=== PATIENT | male | born 1940 | race American Indian/Alaskan Native ===

== ENCOUNTER → 2016-12-30 | Outpatient (CLI) | payer MEDICARE, OTHER ==
[~2016-12-30] MED LIST: ARICEPT 5MG PO; ARICEPT10 MG PO; ATIVAN 0.50.5 MG/TAB PO; CALCIUM 600MG+D1 TAB PO; CARDIZEM 30MG T30 MG PO; CARDIZEM 60MG T60 MG PO; CEPHALEXIN500 M1 PO; CHANTIX 1MG1 MG PO; CLEOCIN HC150 MG/CAP PO; DOXYCYCLINE 10100 MG PO; EC-NAPROSYN500 MG PO; FLEXERIL 1010 MG/TAB PO; FLOMAX 0.40.4 MG/CAP PO; IPRATROPIUM BROM3 M1 IH; LEVAQUIN 5500 MG/TA1 PO; MUCINEX 60600 MG/TA1 PO; MUCINEX DM 30 M1 TE1 PO; MYSOLINE 5050 MG/TAB PO; NAMENDA 10MG TA10 MG PO; NORCO 325 MG-51 TAB PO; PERFOROMIS20 MCG/2 M IH; PREDNISONE 5MG5 MG PO; PREDNISONE10 MG PO; PREDNISONE20 MG PO; PROAIR HFA0.09 MG/AC IH; PULMICORT R1 MG/2 ML IH; PULMICORT0.5 MG/2 M IH; RT ADVAIR 228 DISKUS IH; TOBRADEX EYE DRO5 ML OD; ULTRAM 50MG TAB50 MG PO; VANCOCIN HCL1 GM IV; VENTOLIN0.09 MG IH; WELLBUTRIN 75MG75 MG PO; WELLBUTRIN SR150 M1 PO; ZITHROMAX 250M250 MG PO
== END ==
LOC: COL.RAD 13:15
DX: R20.1 Hypoesthesia of skin (principal)
CPT/HCPCS: A9585

== ENCOUNTER 2017-06-26 09:17 | Emergency (ER) | payer MEDICARE, OTHER ==
[~2017-06-26] VITALS: Ht 160 cm; Wt 67.2 kg
[~2017-06-26 09:17] MED LIST changes: -CALCIUM 600MG+D1 TAB PO; -EC-NAPROSYN500 MG PO; -MUCINEX 60600 MG/TA1 PO; -MUCINEX DM 30 M1 TE1 PO; -PREDNISONE10 MG PO; -PULMICORT R1 MG/2 ML IH; -ULTRAM 50MG TAB50 MG PO; -VENTOLIN0.09 MG IH; -ZITHROMAX 250M250 MG PO
[2017-06-26 09:25] VITALS: BP 122/61; TEMP 97.4
[2017-06-26] MEDS ORDERED: MUCINEX 60600 MG/TA1 PO (09:45)
[2017-06-26 10:21] LABS: ARTERIAL BLD GAS O2 SATURATION 95.7 % (92-100); ARTERIAL BLD GAS TCO2 CT 28.1; ARTERIAL BLOOD GAS BASE EXCESS 0.5 (-2-2); ARTERIAL BLOOD GAS HCO3 26.6 meq/L (22-26); ARTERIAL BLOOD GAS PHT 7.36 C (7.35-7.45); ARTERIAL BLOOD GAS PO2 89.4 mmHg (80-100); ARTERIAL BLOOD GAS PO2T 89.4 (80-100); ARTERIAL BLOOD GAS pH 7.36 (7.35-7.45); OXYHEMOGLOBIN 94.8 %
[2017-06-26 10:23] LABS: ATS? YES
[2017-06-26 10:27] LABS: ALANINE AMINOTRANSFERASE 23 U/L (21-72); ALBUMIN 4.3 gm/dL (3.5-5.0); ALKALINE PHOSPHATASE 71 U/L (50-136); ANION GAP 11 mmol/L (7-16); BILIRUBIN,TOTAL 0.4 mg/dL (0.0-1.0); BLOOD UREA NITROGEN 20 mg/dL (9-20); CALCIUM 9.2 mg/dL (8.4-10.2); CARBON DIOXIDE 28 mmol/L (22-30); CHLORIDE 104 mmol/L (98-107); CREATININE, serum 1.07 mg/dL (0.66-1.25); GLUCOSE 113 mg/dL (74-106); POTASSIUM 3.5 mmol/L (3.4-5.0); SODIUM 143 mmol/L (137-145); TOTAL PROTEIN 6.5 gm/dL (6.4-8.2)
[2017-06-26 10:28] LABS: BASO # 0.1 (0.0-0.2); BASO % 0.8 % (0.0-2.0); EOS # 0.7 (0.0-0.7); EOS % 8.5 % (0-4.0); GRAN # 4.8 (1.4-6.5); GRAN % 61.9 % (42.2-75.2); HEMATOCRIT 39.3 % (42.0-52.0); HEMOGLOBIN 12.8 g/dl (13.5-18.0); LYMPH # 1.7 (1.2-3.4); LYMPH % 21.6 % (20.0-51.0); MEAN CELL VOLUME 94 fl (80.0-100.0); MEAN CORPUSCULAR HEMOGLOBIN 31 pg (27.0-31.0); MEAN CORPUSCULAR HGB CONC 33 g/dl (33.0-37.0); MEAN PLATELET VOLUME 11.7 fl (7.4-10.4); MONO # 0.5 (0.1-0.6); MONO % 6.7 % (1.7-9.3); PLATELET COUNT 199 K/mm3 (130-400); RED BLOOD COUNT 4.18 M/mm3 (4.20-5.60); WHITE BLOOD COUNT 7.7 K/mm3 (4.8-10.8)
[2017-06-26 10:37] LABS: INR 0.9 (0.8-3.0); PROTHROMBIN TIME 9.8 SECONDS (9.7-12.8)
[2017-06-26 10:39] LABS: B-TYPE NATRIURETIC PEPTIDE 304 pg/mL (0-450)
[2017-06-26 10:44] LABS: TROPONIN-I < 0.012 ng/mL (0.000-0.034)
[2017-06-26] MEDS ORDERED: PREDNISONE20 MG PO (11:01)
[2017-06-26] MEDS ORDERED: LEVAQUIN 5500 MG/TA1 PO (11:01)
[2017-06-26 11:18] VITALS: PULSE 86
== END 2017-06-26 11:19 | disposition home or self-care (01) ==
LOC: COL.ER 09:17
PROVIDERS: Emergency Medicine
DX: J44.1 Chronic obstructive pulmonary disease with (acute) exacerbation (principal); F03.90 Unspecified dementia, unspecified severity, without behavioral disturbance, psychotic disturbance, mood disturbance, and anxiety; F41.9 Anxiety disorder, unspecified; N40.0 Benign prostatic hyperplasia without lower urinary tract symptoms; Z85.118 Personal history of other malignant neoplasm of bronchus and lung; Z87.891 Personal history of nicotine dependence
CPT/HCPCS: J7512

== ENCOUNTER → 2017-07-07 | Outpatient (REF) ==
[~2017-07-07] MED LIST changes: +CALCIUM 600MG+D1 TAB PO; +EC-NAPROSYN500 MG PO; +MUCINEX 60600 MG/TA1 PO; +MUCINEX DM 30 M1 TE1 PO; +PREDNISONE10 MG PO; +PULMICORT R1 MG/2 ML IH; +ULTRAM 50MG TAB50 MG PO; +VENTOLIN0.09 MG IH; +ZITHROMAX 250M250 MG PO
[2017-07-07 19:37] LABS: PSA-TOTAL 0.27 ng/mL (0-4); THYROID STIMULATING HORMONE 0.645 uIU/mL (0.465-4.680)
== END ==
LOC: ZLAB.WCH 17:59
PROVIDERS: Internal Medicine
DX: Z01.89 Encounter for other specified special examinations (principal)
CPT/HCPCS: G0103

== ENCOUNTER 2017-07-09 14:15 | Outpatient (RCR) | payer MEDICARE, OTHER ==
[~2017-07-09 14:15] MED LIST changes: -CALCIUM 600MG+D1 TAB PO; -EC-NAPROSYN500 MG PO; -MUCINEX DM 30 M1 TE1 PO; -PREDNISONE10 MG PO; -PULMICORT R1 MG/2 ML IH; -ULTRAM 50MG TAB50 MG PO; -VENTOLIN0.09 MG IH; -ZITHROMAX 250M250 MG PO
[2017-07-18] MEDS ORDERED: VENTOLIN0.09 MG IH (01:44)
[2017-07-18] MEDS ORDERED: CALCIUM 600MG+D1 TAB PO (01:44)
[2017-07-18] MEDS ORDERED: ULTRAM 50MG TAB50 MG PO (01:45)
[2017-07-18] MEDS ORDERED: WELLBUTRIN SR150 M1 PO (02:21)
[2017-07-21] MEDS ORDERED: ZITHROMAX 250M250 MG PO (09:43)
[2017-07-21] MEDS ORDERED: EC-NAPROSYN500 MG PO (09:44)
[2017-07-21] MEDS ORDERED: MUCINEX DM 30 M1 TE1 PO (09:45)
[2017-07-21] MEDS ORDERED: MYSOLINE 5050 MG/TAB PO (09:45)
[2017-07-21] MEDS ORDERED: PULMICORT R1 MG/2 ML IH (09:47)
[2017-07-21] MEDS ORDERED: PREDNISONE10 MG PO (09:47)
== END 2017-07-23 13:48 | disposition home or self-care (01) ==
LOC: MKS.ESL.PT 14:15
DX: S22.050D Wedge compression fracture of T5-T6 vertebra, subsequent encounter for fracture with routine healing (principal); S22.060D Wedge compression fracture of T7-T8 vertebra, subsequent encounter for fracture with routine healing; S32.010D Wedge compression fracture of first lumbar vertebra, subsequent encounter for fracture with routine healing
CPT/HCPCS: G8978-GP; G8979-GP

== ENCOUNTER 2017-07-18 00:50 | Inpatient (IN) | payer MEDICARE, OTHER ==
[~2017-07-18] VITALS: Ht 162.6 cm; Wt 69.6 kg
[2017-07-18 01:14] LABS: ARTERIAL BLD GAS O2 SATURATION 97.3 % (92-100); ARTERIAL BLD GAS TCO2 CT 26.5; ARTERIAL BLOOD GAS BASE EXCESS 0.6 (-2-2); ARTERIAL BLOOD GAS HCO3 25.3 meq/L (22-26); ARTERIAL BLOOD GAS PHT 7.42 C (7.35-7.45); ARTERIAL BLOOD GAS PO2 105.8 mmHg (80-100); ARTERIAL BLOOD GAS PO2T 99.9 (80-100); ARTERIAL BLOOD GAS pH 7.41 (7.35-7.45); OXYHEMOGLOBIN 96.4 %
[2017-07-18 01:15] LABS: ALLEN TEST YES; ALLENS TEST RESULT PASS; ATS? YES
[2017-07-18 01:21] LABS: BASO # 0.1 (0.0-0.2); BASO % 0.6 % (0.0-2.0); EOS # 0.8 (0.0-0.7); EOS % 9.4 % (0-4.0); GRAN # 5.1 (1.4-6.5); GRAN % 61.3 % (42.2-75.2); HEMATOCRIT 39.6 % (42.0-52.0); HEMOGLOBIN 13.1 g/dl (13.5-18.0); LYMPH # 1.5 (1.2-3.4); LYMPH % 18.1 % (20.0-51.0); MEAN CELL VOLUME 93 fl (80.0-100.0); MEAN CORPUSCULAR HEMOGLOBIN 31 pg (27.0-31.0); MEAN CORPUSCULAR HGB CONC 33 g/dl (33.0-37.0); MEAN PLATELET VOLUME 11.3 fl (7.4-10.4); MONO # 0.9 (0.1-0.6); MONO % 10.2 % (1.7-9.3); PLATELET COUNT 258 K/mm3 (130-400); RED BLOOD COUNT 4.25 M/mm3 (4.20-5.60); REDCELL DISTRIBUTION WIDTH-CV 13.1 % (11.5-14.5); WHITE BLOOD COUNT 8.3 K/mm3 (4.8-10.8)
[2017-07-18 01:26] LABS: INR 0.9 (0.8-3.0); PROTHROMBIN TIME 9.6 SECONDS (9.7-12.8)
[2017-07-18 01:30] LABS: ADJUSTED CALCIUM 8.5 mg/dL (8.4-10.2); ALANINE AMINOTRANSFERASE 19 U/L (21-72); ALBUMIN 4.4 gm/dL (3.5-5.0); ALKALINE PHOSPHATASE 94 U/L (50-136); ANION GAP 11 mmol/L (7-16); BILIRUBIN,TOTAL 0.4 mg/dL (0.0-1.0); BLOOD UREA NITROGEN 22 mg/dL (9-20); CALCIUM 8.8 mg/dL (8.4-10.2); CARBON DIOXIDE 27 mmol/L (22-30); CHLORIDE 104 mmol/L (98-107); CREATINE KINASE 37 U/L (55-170); CREATININE, serum 1.16 mg/dL (0.66-1.25); GLUCOSE 118 mg/dL (74-106); POTASSIUM 4.1 mmol/L (3.4-5.0); SODIUM 142 mmol/L (137-145); TOTAL PROTEIN 6.9 gm/dL (6.4-8.2)
[2017-07-18 01:42] LABS: B-TYPE NATRIURETIC PEPTIDE 69 pg/mL (0-450)
[2017-07-18] MEDS ORDERED: VENTOLIN0.09 MG IH (01:44)
[2017-07-18] MEDS ORDERED: CALCIUM 600MG+D1 TAB PO (01:44)
[2017-07-18] MEDS ORDERED: ULTRAM 50MG TAB50 MG PO (01:45)
[2017-07-18 01:51] LABS: TROPONIN-I < 0.012 ng/mL (0.000-0.034)
[2017-07-18] MEDS ORDERED: WELLBUTRIN SR150 M1 PO (02:21)
[2017-07-18 04:06] VITALS: BP 102/68; PULSE 92; TEMP 98
[2017-07-18 07:40] VITALS: BP 101/63; PULSE 95; TEMP 98.3
[2017-07-18 12:59] VITALS: BP 128/67; PULSE 104; TEMP 97.7
[2017-07-18 13:11] VITALS: BP 117/64; PULSE 76; TEMP 97.4
[2017-07-18 16:30] VITALS: BP 101/86; PULSE 90; TEMP 98.5
[2017-07-18 20:58] VITALS: BP 108/55; BP 119/57; PULSE 88; PULSE 99; TEMP 97.9
[2017-07-19 00:50] VITALS: BP 95/52; PULSE 64; TEMP 98
[2017-07-19 05:16] VITALS: BP 127/98; PULSE 84; TEMP 97.7
[2017-07-19 09:53] VITALS: BP 115/50; PULSE 87; TEMP 98.2
[2017-07-19 12:42] VITALS: BP 112/72; PULSE 85; TEMP 98.7
[2017-07-19 15:49] VITALS: BP 114/55; PULSE 89; TEMP 98.5
[2017-07-19 20:52] VITALS: BP 111/51; PULSE 88; TEMP 98.3
[2017-07-19 22:52] LABS: PROCALCITONIN <0.05 ng/mL (0.00-0.09)
[2017-07-20] VITALS (7 sets, daily range): BP systolic 107–127; BP diastolic 49–89; PULSE 65–99; TEMP 97.1–98.5
[2017-07-21 04:07] VITALS: BP 125/68; PULSE 75; TEMP 97.9
[2017-07-21 09:13] VITALS: BP 113/51; PULSE 72; TEMP 97.6
[2017-07-21] MEDS ORDERED: ZITHROMAX 250M250 MG PO (09:43)
[2017-07-21] MEDS ORDERED: EC-NAPROSYN500 MG PO (09:44)
[2017-07-21] MEDS ORDERED: MUCINEX DM 30 M1 TE1 PO (09:45)
[2017-07-21] MEDS ORDERED: MYSOLINE 5050 MG/TAB PO (09:45)
[2017-07-21] MEDS ORDERED: PULMICORT R1 MG/2 ML IH (09:47)
[2017-07-21] MEDS ORDERED: PREDNISONE10 MG PO (09:47)
[2017-07-21 12:42] VITALS: BP 125/67; PULSE 74; TEMP 98.8
== END 2017-07-21 15:14 | disposition home or self-care (01) | DRG 191 ==
LOC: COL.ER 00:50 → MEDICAL 01:54
PROVIDERS: Emergency Medicine
DX: J44.1 Chronic obstructive pulmonary disease with (acute) exacerbation (principal); M80.08XA Age-related osteoporosis with current pathological fracture, vertebra(e), initial encounter for fracture; Z85.51 Personal history of malignant neoplasm of bladder; Z85.118 Personal history of other malignant neoplasm of bronchus and lung; F03.90 Unspecified dementia, unspecified severity, without behavioral disturbance, psychotic disturbance, mood disturbance, and anxiety; Z87.891 Personal history of nicotine dependence
CPT/HCPCS: 99223-AI; 99232-AI; J1650; J1885; J1956; J2405; J2930; Q9967

== ENCOUNTER → 2017-08-03 | Outpatient (CLI) | payer MEDICARE, OTHER ==
[~2017-08-03] MED LIST changes: +CALCIUM 600MG+D1 TAB PO; +EC-NAPROSYN500 MG PO; +MUCINEX DM 30 M1 TE1 PO; +PREDNISONE10 MG PO; +PULMICORT R1 MG/2 ML IH; +ULTRAM 50MG TAB50 MG PO; +VENTOLIN0.09 MG IH; +ZITHROMAX 250M250 MG PO
== END ==
LOC: COL.RAD 12:23
DX: S22.060A Wedge compression fracture of T7-T8 vertebra, initial encounter for closed fracture (principal); S22.050A Wedge compression fracture of T5-T6 vertebra, initial encounter for closed fracture; M81.0 Age-related osteoporosis without current pathological fracture

== ENCOUNTER 2017-08-11 14:30 | Outpatient (RCR) | payer MEDICARE, OTHER ==
[2017-09-04] MEDS ORDERED: PULMICORT0.5 MG/2 M IH (12:11)
[2017-09-04] MEDS ORDERED: MYSOLINE 5050 MG/TAB PO (12:11)
[2017-09-04] MEDS ORDERED: MUCINEX DM 30 M1 TE1 (12:12)
[2017-09-04] MEDS ORDERED: NAPROSYN500 MG PO (12:12)
[2017-09-04] MEDS ORDERED: ZITHROMAX 250M250 MG PO (12:13)
[2017-09-04] MEDS ORDERED: FLOMAX 0.40.4 MG/CAP PO (12:13)
[2017-09-04] MEDS ORDERED: PERFOROMIS20 MCG/2 M IH (12:14)
[2017-10-09] MEDS ORDERED: PREDNISONE10 MG PO (21:11)
[2017-10-09] MEDS ORDERED: IPRATROPIUM BROM3 M1 IH (22:20)
[2017-10-10] MEDS ORDERED: IPRATROPIUM BROM3 M1 IH (09:31)
== END 2017-10-21 ==
LOC: MKS.ESL.PT
DX: S32.010D Wedge compression fracture of first lumbar vertebra, subsequent encounter for fracture with routine healing (principal); S22.050D Wedge compression fracture of T5-T6 vertebra, subsequent encounter for fracture with routine healing; R26.89 Other abnormalities of gait and mobility; C34.90 Malignant neoplasm of unspecified part of unspecified bronchus or lung; Z85.118 Personal history of other malignant neoplasm of bronchus and lung; Z85.51 Personal history of malignant neoplasm of bladder; Z92.3 Personal history of irradiation
CPT/HCPCS: G8978-GP; G8979-GP

== ENCOUNTER 2017-09-04 10:07 | Outpatient (CLI) | payer MEDICARE, OTHER ==
[2017-09-04] VITALS (9 sets, daily range): BP systolic 97–122; BP diastolic 61–77; PULSE 61–87; TEMP 98.4
[~2017-09-04] VITALS: Ht 161.3 cm; Wt 65.6 kg
[2017-09-04] MEDS ORDERED: PULMICORT0.5 MG/2 M IH (12:11)
[2017-09-04] MEDS ORDERED: MYSOLINE 5050 MG/TAB PO (12:11)
[2017-09-04] MEDS ORDERED: NAPROSYN500 MG PO (12:12)
[2017-09-04] MEDS ORDERED: MUCINEX DM 30 M1 TE1 (12:12)
[2017-09-04] MEDS ORDERED: ZITHROMAX 250M250 MG PO (12:13)
[2017-09-04] MEDS ORDERED: FLOMAX 0.40.4 MG/CAP PO (12:13)
[2017-09-04] MEDS ORDERED: PERFOROMIS20 MCG/2 M IH (12:14)
== END 2017-09-04 18:00 | disposition home or self-care (01) ==
LOC: COL.CAR 10:07
DX: S22.050A Wedge compression fracture of T5-T6 vertebra, initial encounter for closed fracture (principal); S22.060A Wedge compression fracture of T7-T8 vertebra, initial encounter for closed fracture; I48.91 Unspecified atrial fibrillation; J31.0 Chronic rhinitis; J44.9 Chronic obstructive pulmonary disease, unspecified; N40.0 Benign prostatic hyperplasia without lower urinary tract symptoms; M19.90 Unspecified osteoarthritis, unspecified site; Z85.51 Personal history of malignant neoplasm of bladder; Z85.118 Personal history of other malignant neoplasm of bronchus and lung
CPT/HCPCS: C1713; J2250; J3010; J7120

== ENCOUNTER 2017-10-09 20:13 | Emergency (ER) | payer MEDICARE, OTHER ==
[~2017-10-09] VITALS: Ht 157.5 cm; Wt 75.0 kg
[~2017-10-09 20:13] MED LIST changes: +MUCINEX DM 30 M1 TE1; +NAPROSYN500 MG PO
[2017-10-09 20:48] LABS: ARTERIAL BLD GAS O2 SATURATION 97.3 % (92-100); ARTERIAL BLD GAS TCO2 CT 24.7; ARTERIAL BLOOD GAS BASE EXCESS -0.7 (-2-2); ARTERIAL BLOOD GAS HCO3 23.6 meq/L (22-26); ARTERIAL BLOOD GAS PO2 95.2 mmHg (80-100); ARTERIAL BLOOD GAS pH 7.41 (7.35-7.45); OXYHEMOGLOBIN 96.7 %
[2017-10-09 20:49] LABS: ALLEN TEST YES; ALLENS TEST RESULT PASS; ATS? YES
[2017-10-09 20:49] LABS: BASO # 0.1 (0.0-0.2); BASO % 0.7 % (0.0-2.0); EOS # 0.6 (0.0-0.7); EOS % 6.1 % (0-4.0); GRAN # 5.4 (1.4-6.5); GRAN % 55.6 % (42.2-75.2); HEMATOCRIT 37.9 % (42.0-52.0); HEMOGLOBIN 12.6 g/dl (13.5-18.0); LYMPH # 2.8 (1.2-3.4); LYMPH % 28.7 % (20.0-51.0); MEAN CELL VOLUME 97 fl (80.0-100.0); MEAN CORPUSCULAR HEMOGLOBIN 32 pg (27.0-31.0); MEAN CORPUSCULAR HGB CONC 33 g/dl (33.0-37.0); MEAN PLATELET VOLUME 11.3 fl (7.4-10.4); MONO # 0.8 (0.1-0.6); MONO % 8.5 % (1.7-9.3); PLATELET COUNT 225 K/mm3 (130-400); RED BLOOD COUNT 3.92 M/mm3 (4.20-5.60)
[2017-10-09 21:03] LABS: ADJUSTED CALCIUM 8.5 mg/dL (8.4-10.2); ALANINE AMINOTRANSFERASE 23 U/L (21-72); ALKALINE PHOSPHATASE 83 U/L (50-136); ANION GAP 11 mmol/L (7-16); BILIRUBIN,TOTAL 0.3 mg/dL (0.0-1.0); BLOOD UREA NITROGEN 25 mg/dL (9-20); CALCIUM 8.5 mg/dL (8.4-10.2); CARBON DIOXIDE 26 mmol/L (22-30); CHLORIDE 105 mmol/L (98-107); CREATININE, serum 1.14 mg/dL (0.66-1.25); GLUCOSE 116 mg/dL (74-106); POTASSIUM 4.2 mmol/L (3.4-5.0); SODIUM 142 mmol/L (137-145); TOTAL PROTEIN 5.9 gm/dL (6.4-8.2)
[2017-10-09] MEDS ORDERED: PREDNISONE10 MG PO (21:11)
[2017-10-09 21:14] LABS: TROPONIN-I < 0.012 ng/mL (0.000-0.034)
[2017-10-09] MEDS ORDERED: IPRATROPIUM BROM3 M1 IH (22:20)
[2017-10-09 22:43] VITALS: PULSE 72
[2017-10-09 23:00] VITALS: BP 128/71
[2017-10-10] MEDS ORDERED: IPRATROPIUM BROM3 M1 IH (09:31)
== END 2017-10-09 23:21 | disposition home or self-care (01) ==
LOC: COL.ER 20:13
PROVIDERS: Family Medicine
DX: J44.1 Chronic obstructive pulmonary disease with (acute) exacerbation (principal); Z87.891 Personal history of nicotine dependence

== ENCOUNTER 2017-12-14 13:15 | Outpatient (RCR) | payer MEDICARE, OTHER ==
[2017-12-16] MEDS ORDERED: BEVESPI AEROS10.7 GM IH (23:32)
[2017-12-18] MEDS ORDERED: TAMIFLU 75MG75 MG PO (07:54)
[2018-01-10] MEDS ORDERED: MYSOLINE 5050 MG/TAB PO (15:28)
[2018-01-10] MEDS ORDERED: FLOMAX 0.40.4 MG/CAP PO (15:28)
[2018-01-10] MEDS ORDERED: LEVASOLN PEG (15:29)
[2018-01-10] MEDS ORDERED: WELLBUTRIN 75MG75 MG PO (15:29)
[2018-01-10] MEDS ORDERED: PREDNISONE20 MG PO (15:29)
[2018-02-07] MEDS ORDERED: LEXAPRO 10MG10 MG PO (17:47)
[2018-02-07] MEDS ORDERED: ABILIFY2 MG PO (17:47)
[2018-02-07] MEDS ORDERED: MYSOLINE 5050 MG/TAB PO (17:47)
[2018-02-09] MEDS ORDERED: OMNICEF 300MG300 MG PO (11:28)
[2018-02-09] MEDS ORDERED: ZITHROMAX500 M2 PO (11:28)
[2018-02-09] MEDS ORDERED: PREDNISONE10 MG PO (11:31)
[2018-02-09] MEDS ORDERED: PRILOSEC 20MG20 MG PO (15:13)
== END 2018-03-07 | disposition home or self-care (01) ==
LOC: WSST
DX: T17.908A Unspecified foreign body in respiratory tract, part unspecified causing other injury, initial encounter (principal); J44.9 Chronic obstructive pulmonary disease, unspecified; C34.92 Malignant neoplasm of unspecified part of left bronchus or lung
CPT/HCPCS: G8996-GN; G8997-GN

== ENCOUNTER 2017-12-16 22:11 | Observation (INO) | payer MEDICARE, OTHER ==
[~2017-12-16] VITALS: Ht 160 cm; Wt 67.5 kg
[2017-12-16 22:48] LABS: BASO % 0.6 % (0.0-2.0); EOS # 0.2 (0.0-0.7); EOS % 2.4 % (0-4.0); GRAN # 4.9 (1.4-6.5); GRAN % 69.6 % (42.2-75.2); HEMATOCRIT 38.3 % (42.0-52.0); HEMOGLOBIN 12.6 g/dl (13.5-18.0); LYMPH # 0.9 (1.2-3.4); MEAN CELL VOLUME 93 fl (80.0-100.0); MEAN CORPUSCULAR HEMOGLOBIN 31 pg (27.0-31.0); MEAN CORPUSCULAR HGB CONC 33 g/dl (33.0-37.0); MEAN PLATELET VOLUME 10.9 fl (7.4-10.4); PLATELET COUNT 233 K/mm3 (130-400); RED BLOOD COUNT 4.12 M/mm3 (4.20-5.60); REDCELL DISTRIBUTION WIDTH-CV 12.3 % (11.5-14.5)
[2017-12-16 23:00] LABS: INFLUENZA A POSITIVE; INFLUENZA B NEGATIVE
[2017-12-16 23:06] LABS: ANION GAP 10 mmol/L (7-16); BLOOD UREA NITROGEN 15 mg/dL (9-20); CALCIUM 8.8 mg/dL (8.4-10.2); CARBON DIOXIDE 25 mmol/L (22-30); CHLORIDE 102 mmol/L (98-107); CREATININE, serum 1.22 mg/dL (0.66-1.25); GLUCOSE 99 mg/dL (74-106); POTASSIUM 4.4 mmol/L (3.4-5.0); SODIUM 137 mmol/L (137-145)
[2017-12-16 23:18] LABS: TROPONIN-I < 0.012 ng/mL (0.000-0.034)
[2017-12-16] MEDS ORDERED: BEVESPI AEROS10.7 GM IH (23:32)
[2017-12-17 02:15] VITALS: BP 116/68; PULSE 74; TEMP 97.9
[2017-12-17 06:37] LABS: MEAN CELL VOLUME 93 fl (80.0-100.0); MEAN CORPUSCULAR HGB CONC 33 g/dl (33.0-37.0); PLATELET COUNT 204 K/mm3 (130-400); RED BLOOD COUNT 3.92 M/mm3 (4.20-5.60); REDCELL DISTRIBUTION WIDTH-CV 12.3 % (11.5-14.5)
[2017-12-17 06:38] LABS: HEMATOCRIT 36.6 % (42.0-52.0); HEMOGLOBIN 11.9 g/dl (13.5-18.0); MEAN CORPUSCULAR HEMOGLOBIN 30 pg (27.0-31.0)
[2017-12-17 06:40] LABS: ALBUMIN 3.7 gm/dL (3.5-5.0); BILIRUBIN,TOTAL 0.2 mg/dL (0.0-1.0); CALCIUM 8.8 mg/dL (8.4-10.2); CREATININE, serum 1.09 mg/dL (0.66-1.25); POTASSIUM 4.8 mmol/L (3.4-5.0); TOTAL PROTEIN 6.3 gm/dL (6.4-8.2)
[2017-12-17 08:10] LABS: BAND 40 % (0-10); LYMPHOCYTE 10 % (20.0-51.0); NEUTROPHILS 50 % (42.0-75.2); PLATELET ESTIMATE NORMAL (NORMAL)
[2017-12-17 08:19] VITALS: BP 126/65; PULSE 81; TEMP 97.5
[2017-12-17 13:30] VITALS: BP 113/61; PULSE 69; TEMP 97.6
[2017-12-17 16:41] VITALS: BP 138/61; PULSE 87; TEMP 97.4
[2017-12-17 20:17] VITALS: BP 126/72; PULSE 82; TEMP 98
[2017-12-18 00:40] VITALS: BP 114/65; PULSE 79; TEMP 97.3
[2017-12-18 06:39] LABS: BASO % 0.1 % (0.0-2.0); EOS % 0.3 % (0-4.0); GRAN # 4.7 (1.4-6.5); GRAN % 67.3 % (42.2-75.2); HEMATOCRIT 34.9 % (42.0-52.0); HEMOGLOBIN 11.3 g/dl (13.5-18.0); LYMPH # 1.4 (1.2-3.4); LYMPH % 19.5 % (20.0-51.0); MEAN CELL VOLUME 94 fl (80.0-100.0); MEAN CORPUSCULAR HEMOGLOBIN 30 pg (27.0-31.0); MEAN CORPUSCULAR HGB CONC 32 g/dl (33.0-37.0); MEAN PLATELET VOLUME 11.6 fl (7.4-10.4); MONO # 0.9 (0.1-0.6); MONO % 12.4 % (1.7-9.3); PLATELET COUNT 218 K/mm3 (130-400); RED BLOOD COUNT 3.72 M/mm3 (4.20-5.60); REDCELL DISTRIBUTION WIDTH-CV 12.2 % (11.5-14.5)
[2017-12-18 06:53] LABS: CALCIUM 8.5 mg/dL (8.4-10.2); CREATININE, serum 1.14 mg/dL (0.66-1.25); POTASSIUM 3.8 mmol/L (3.4-5.0)
[2017-12-18 07:48] VITALS: BP 97/64; PULSE 72; TEMP 97.7
[2017-12-18] MEDS ORDERED: TAMIFLU 75MG75 MG PO (07:54)
== END 2017-12-18 12:23 | disposition home or self-care (01) ==
LOC: COL.ER 22:11 → MEDICAL 12-17 00:08
PROVIDERS: Emergency Medicine; Internal Medicine; Nurse Practitioner Family
DX: J10.1 Influenza due to other identified influenza virus with other respiratory manifestations (principal); J43.9 Emphysema, unspecified; J98.4 Other disorders of lung; R13.10 Dysphagia, unspecified; Z85.118 Personal history of other malignant neoplasm of bronchus and lung; Z85.51 Personal history of malignant neoplasm of bladder; F03.90 Unspecified dementia, unspecified severity, without behavioral disturbance, psychotic disturbance, mood disturbance, and anxiety; N40.0 Benign prostatic hyperplasia without lower urinary tract symptoms; M20.009 Unspecified deformity of unspecified finger(s); Z87.891 Personal history of nicotine dependence; Z88.5 Allergy status to narcotic agent; Z92.3 Personal history of irradiation; J44.9 Chronic obstructive pulmonary disease, unspecified; Z99.81 Dependence on supplemental oxygen
CPT/HCPCS: 99223; 99232-AI; G0378; G8978-GP; G8979-GP; G8996-GN; G8997-GN; J0456; J0696; J1650; J2920; J2930; J7050

== ENCOUNTER 2018-01-10 14:21 | Inpatient (IN) | payer MEDICARE, OTHER ==
[~2018-01-10] VITALS: Ht 160 cm; Wt 64.9 kg
[2018-01-10] VITALS (392 sets, daily range): BP systolic 96–107; BP diastolic 62–70; PULSE 66–76; TEMP 97–97.5; O2SAT 85–100
[~2018-01-10 14:21] MED LIST changes: +BEVESPI AEROS10.7 GM IH; +TAMIFLU 75MG75 MG PO
[2018-01-10 15:21] LABS: BASO # 0.1 (0.0-0.2); BASO % 0.6 % (0.0-2.0); EOS # 1.2 (0.0-0.7); GRAN # 7.2 (1.4-6.5); GRAN % 62.4 % (42.2-75.2); HEMATOCRIT 40.6 % (42.0-52.0); HEMOGLOBIN 13.1 g/dl (13.5-18.0); LYMPH % 17.3 % (20.0-51.0); MEAN CELL VOLUME 94 fl (80.0-100.0); MEAN CORPUSCULAR HEMOGLOBIN 30 pg (27.0-31.0); MEAN CORPUSCULAR HGB CONC 32 g/dl (33.0-37.0); MONO # 0.9 (0.1-0.6); MONO % 7.4 % (1.7-9.3); PLATELET COUNT 277 K/mm3 (130-400); RED BLOOD COUNT 4.32 M/mm3 (4.20-5.60); REDCELL DISTRIBUTION WIDTH-CV 12.6 % (11.5-14.5)
[2018-01-10] MEDS ORDERED: FLOMAX 0.40.4 MG/CAP PO (15:28)
[2018-01-10] MEDS ORDERED: MYSOLINE 5050 MG/TAB PO (15:28)
[2018-01-10] MEDS ORDERED: LEVASOLN PEG (15:29)
[2018-01-10] MEDS ORDERED: PREDNISONE20 MG PO (15:29)
[2018-01-10] MEDS ORDERED: WELLBUTRIN 75MG75 MG PO (15:29)
[2018-01-10 15:43] LABS: ALANINE AMINOTRANSFERASE 32 U/L (21-72); ALBUMIN 4.1 gm/dL (3.5-5.0); ALKALINE PHOSPHATASE 51 U/L (50-136); ANION GAP 9 mmol/L (7-16); AST,SGOT 20 U/L (15-37); BILIRUBIN,TOTAL 0.6 mg/dL (0.0-1.0); BLOOD UREA NITROGEN 25 mg/dL (9-20); CALCIUM 8.9 mg/dL (8.4-10.2); CARBON DIOXIDE 31 mmol/L (22-30); CHLORIDE 100 mmol/L (98-107); CREATININE, serum 1.18 mg/dL (0.66-1.25); GLUCOSE 98 mg/dL (74-106); SODIUM 139 mmol/L (137-145); TOTAL PROTEIN 6.3 gm/dL (6.4-8.2)
[2018-01-10 15:44] LABS: ACETAMINOPHEN < 10 ug/mL (10-30); ALCOHOL(ethanol),MEDICAL < 10 mg/dL; SALICYLATE < 1.0 mg/dL
[2018-01-10 16:05] LABS: COLLECTION METHOD CLEAN CATCH
[2018-01-10 16:17] LABS: PH 5 (5-8); URINE APPEARANCE Clear; URINE BILIRUBIN Negative (NEGATIVE); URINE BLOOD Negative (NEGATIVE); URINE COLOR Yellow; URINE GLUCOSE Negative (NEGATIVE); URINE KETONE Negative (NEGATIVE); URINE LEUKOCYTE ESTERASE Trace (NEGATIVE); URINE NITRATE Negative (NEGATIVE); URINE PROTEIN(semi-quant) Negative (NEGATIVE); URINE UROBILINOGEN Negative (NEGATIVE)
[2018-01-10 16:23] LABS: TRICYCLIC ANTIDEPRESS URINE NEGATIVE
[2018-01-10 16:33] LABS: SQUAMOUS EPITHELIAL 0-2 /hpf
[2018-01-10 16:34] LABS: MUCOUS Present /lpf; URINE RBC None Seen /hpf
[2018-01-11] VITALS (988 sets, daily range): BP systolic 92–113; BP diastolic 58–86; PULSE 62–98; TEMP 97.1–98.4; O2SAT 74–100
[2018-01-12 03:38] VITALS: BP 108/64; PULSE 79; TEMP 98.5
[2018-01-12 08:06] VITALS: BP 109/64; PULSE 76; TEMP 98.5
[2018-01-12 11:24] VITALS: BP 117/80; PULSE 71; TEMP 97.6
[2018-01-12 14:59] VITALS: BP 117/80; PULSE 71; TEMP 97.6
== END 2018-01-12 17:45 | DRG 918 ==
LOC: COL.ER 14:21 → ICU 15:56 → MEDICAL 01-11 19:39
PROVIDERS: Emergency Medicine
DX: T43.292A Poisoning by other antidepressants, intentional self-harm, initial encounter (principal); J44.9 Chronic obstructive pulmonary disease, unspecified; F32.9 Major depressive disorder, single episode, unspecified; F03.90 Unspecified dementia, unspecified severity, without behavioral disturbance, psychotic disturbance, mood disturbance, and anxiety; Z87.891 Personal history of nicotine dependence; Z99.81 Dependence on supplemental oxygen; Z85.51 Personal history of malignant neoplasm of bladder; Z85.118 Personal history of other malignant neoplasm of bronchus and lung
CPT/HCPCS: 99231-AI; 99232-AI; 99239; J1650; J7030

== ENCOUNTER 2018-02-07 17:08 | Inpatient (IN) | payer MEDICARE, OTHER ==
[~2018-02-07] VITALS: Ht 160 cm; Wt 72.3 kg
[2018-02-07] VITALS (206 sets, daily range): BP systolic 125; BP diastolic 85; PULSE 90; TEMP 97.4; O2SAT 91–100
[~2018-02-07 17:08] MED LIST changes: +LEVASOLN PEG
[2018-02-07 17:42] LABS: BASO # 0.1 (0.0-0.2); BASO % 0.7 % (0.0-2.0); EOS # 0.5 (0.0-0.7); EOS % 6.5 % (0-4.0); GRAN # 5.8 (1.4-6.5); GRAN % 70.7 % (42.2-75.2); LYMPH # 1.1 (1.2-3.4); LYMPH % 13.7 % (20.0-51.0); MEAN CELL VOLUME 95 fl (80.0-100.0); MEAN CORPUSCULAR HGB CONC 33 g/dl (33.0-37.0); MEAN PLATELET VOLUME 10.5 fl (7.4-10.4); MONO # 0.7 (0.1-0.6); MONO % 7.9 % (1.7-9.3); PLATELET COUNT 241 K/mm3 (130-400); RED BLOOD COUNT 3.68 M/mm3 (4.20-5.60); REDCELL DISTRIBUTION WIDTH-CV 13.3 % (11.5-14.5)
[2018-02-07 17:43] LABS: HEMATOCRIT 34.8 % (42.0-52.0); HEMOGLOBIN 11.4 g/dl (13.5-18.0); MEAN CORPUSCULAR HEMOGLOBIN 31 pg (27.0-31.0)
[2018-02-07] MEDS ORDERED: LEXAPRO 10MG10 MG PO (17:47)
[2018-02-07] MEDS ORDERED: MYSOLINE 5050 MG/TAB PO (17:47)
[2018-02-07] MEDS ORDERED: ABILIFY2 MG PO (17:47)
[2018-02-07 17:56] LABS: ALANINE AMINOTRANSFERASE 48 U/L (21-72); ALKALINE PHOSPHATASE 43 U/L (50-136); ANION GAP 9 mmol/L (7-16); AST,SGOT 29 U/L (15-37); BILIRUBIN,TOTAL 0.4 mg/dL (0.0-1.0); BLOOD UREA NITROGEN 9 mg/dL (9-20); CALCIUM 8.8 mg/dL (8.4-10.2); CARBON DIOXIDE 30 mmol/L (22-30); CHLORIDE 101 mmol/L (98-107); GLUCOSE 119 mg/dL (74-106); LIPASE 91 U/L (23-300); POTASSIUM 4.1 mmol/L (3.4-5.0); SODIUM 141 mmol/L (137-145); TOTAL PROTEIN 6.3 gm/dL (6.4-8.2)
[2018-02-07 18:00] LABS: C-REACTIVE PROTEIN < 0.5 mg/dL (0.0-0.9)
[2018-02-07 18:14] LABS: TROPONIN-I < 0.012 ng/mL (0.000-0.034)
[2018-02-07 18:14] LABS: ARTERIAL BLD GAS O2 SATURATION 96.9 % (92-100); ARTERIAL BLD GAS TCO2 CT 29.7; ARTERIAL BLOOD GAS BASE EXCESS 1.8 (-2-2); ARTERIAL BLOOD GAS HCO3 28.1 meq/L (22-26); ARTERIAL BLOOD GAS PCO2 50.8 mmHg (35-45); ARTERIAL BLOOD GAS pH 7.36 (7.35-7.45)
[2018-02-07 21:01] LABS: ARTERIAL BLD GAS O2 SATURATION 93.4 % (92-100); ARTERIAL BLD GAS TCO2 CT 28.8; ARTERIAL BLOOD GAS BASE EXCESS 2.1 (-2-2); ARTERIAL BLOOD GAS HCO3 27.4 meq/L (22-26); ARTERIAL BLOOD GAS PCO2 45.3 mmHg (35-45); ARTERIAL BLOOD GAS PO2 68.8 mmHg (80-100)
[2018-02-08] VITALS (830 sets, daily range): BP systolic 102–128; BP diastolic 62–78; PULSE 69–97; TEMP 97.6–98.8; O2SAT 63–100
[2018-02-08 05:51] LABS: GRAN # 5.2 (1.4-6.5); GRAN % 95.1 % (42.2-75.2); LYMPH # 0.2 (1.2-3.4); LYMPH % 4.1 % (20.0-51.0); MEAN CELL VOLUME 95 fl (80.0-100.0); MEAN CORPUSCULAR HGB CONC 32 g/dl (33.0-37.0); MEAN PLATELET VOLUME 10.3 fl (7.4-10.4); MONO % 0.2 % (1.7-9.3); PLATELET COUNT 244 K/mm3 (130-400); RED BLOOD COUNT 3.67 M/mm3 (4.20-5.60); REDCELL DISTRIBUTION WIDTH-CV 13.2 % (11.5-14.5)
[2018-02-08 06:01] LABS: HEMATOCRIT 34.7 % (42.0-52.0); HEMOGLOBIN 11.2 g/dl (13.5-18.0); MEAN CORPUSCULAR HEMOGLOBIN 31 pg (27.0-31.0)
[2018-02-08 06:02] LABS: ALBUMIN 3.8 gm/dL (3.5-5.0); BILIRUBIN,TOTAL 0.3 mg/dL (0.0-1.0); CALCIUM 8.6 mg/dL (8.4-10.2); CREATININE, serum 0.79 mg/dL (0.66-1.25); POTASSIUM 4.2 mmol/L (3.4-5.0); TOTAL PROTEIN 6.1 gm/dL (6.4-8.2)
[2018-02-09 04:21] VITALS: BP 135/74; PULSE 81; TEMP 97.5
[2018-02-09 08:44] VITALS: BP 113/61; PULSE 94; TEMP 97.5
[2018-02-09 11:26] VITALS: BP 120/55; PULSE 96; TEMP 98.1
[2018-02-09] MEDS ORDERED: OMNICEF 300MG300 MG PO (11:28)
[2018-02-09] MEDS ORDERED: ZITHROMAX500 M2 PO (11:28)
[2018-02-09] MEDS ORDERED: PREDNISONE10 MG PO (11:31)
[2018-02-09] MEDS ORDERED: PRILOSEC 20MG20 MG PO (15:13)
== END 2018-02-09 15:15 | disposition home or self-care (01) | DRG 189 ==
LOC: COL.ER 17:08 → MEDICAL 18:35 → ICU 18:35 → MEDICAL 02-08 13:34
PROVIDERS: Emergency Medicine; Nurse Practitioner Family
DX: J96.21 Acute and chronic respiratory failure with hypoxia (principal); J44.1 Chronic obstructive pulmonary disease with (acute) exacerbation; J96.02 Acute respiratory failure with hypercapnia; I48.0 Paroxysmal atrial fibrillation; I10 Essential (primary) hypertension; F03.90 Unspecified dementia, unspecified severity, without behavioral disturbance, psychotic disturbance, mood disturbance, and anxiety; Z85.51 Personal history of malignant neoplasm of bladder; Z85.110 Personal history of malignant carcinoid tumor of bronchus and lung; Z87.891 Personal history of nicotine dependence
CPT/HCPCS: 99222; J0456; J0696; J1650; J2930; J7050; J7512

== ENCOUNTER 2018-03-13 15:57 | Emergency (ER) | payer MEDICARE, OTHER ==
[~2018-03-13] VITALS: Ht 160 cm; Wt 63.6 kg
[~2018-03-13 15:57] MED LIST changes: +ABILIFY2 MG PO; +LEXAPRO 10MG10 MG PO; +OMNICEF 300MG300 MG PO; +PRILOSEC 20MG20 MG PO; +ZITHROMAX500 M2 PO
[2018-03-13 16:24] LABS: BASO # 0.1 (0.0-0.2); BASO % 0.6 % (0.0-2.0); EOS # 0.6 (0.0-0.7); EOS % 7.4 % (0-4.0); GRAN # 5.4 (1.4-6.5); GRAN % 67.5 % (42.2-75.2); LYMPH # 1.2 (1.2-3.4); LYMPH % 15.3 % (20.0-51.0); MEAN CELL VOLUME 96 fl (80.0-100.0); MEAN CORPUSCULAR HGB CONC 33 g/dl (33.0-37.0); MEAN PLATELET VOLUME 9.9 fl (7.4-10.4); MONO # 0.7 (0.1-0.6); MONO % 8.6 % (1.7-9.3); PLATELET COUNT 284 K/mm3 (130-400); RED BLOOD COUNT 3.72 M/mm3 (4.20-5.60); REDCELL DISTRIBUTION WIDTH-CV 13.6 % (11.5-14.5)
[2018-03-13 16:31] LABS: ARTERIAL BLD GAS O2 SATURATION 96.5 % (92-100); ARTERIAL BLD GAS TCO2 CT 29.4; ARTERIAL BLOOD GAS HCO3 27.9 meq/L (22-26); ARTERIAL BLOOD GAS pH 7.37 (7.35-7.45)
[2018-03-13 16:32] LABS: HEMATOCRIT 35.6 % (42.0-52.0); HEMOGLOBIN 11.6 g/dl (13.5-18.0); MEAN CORPUSCULAR HEMOGLOBIN 31 pg (27.0-31.0)
[2018-03-13 16:33] LABS: ALBUMIN 3.9 gm/dL (3.5-5.0); BILIRUBIN,TOTAL 0.3 mg/dL (0.0-1.0); CALCIUM 8.8 mg/dL (8.4-10.2); CREATININE, serum 1.01 mg/dL (0.66-1.25); POTASSIUM 4.2 mmol/L (3.4-5.0); TOTAL PROTEIN 6.5 gm/dL (6.4-8.2)
[2018-03-13 17:09] VITALS: TEMP 97.2
[2018-03-13] MEDS ORDERED: PREDNISONE10 MG PO (17:31)
[2018-03-13 17:39] VITALS: BP 116/66; PULSE 825
== END 2018-03-13 17:52 | disposition home or self-care (01) ==
LOC: COL.ER 15:57
PROVIDERS: Family Medicine
DX: J44.1 Chronic obstructive pulmonary disease with (acute) exacerbation (principal); Z87.891 Personal history of nicotine dependence
CPT/HCPCS: J2930; J7512

== ENCOUNTER 2018-04-06 10:15 | Outpatient (RCR) | payer MEDICARE, OTHER ==
[~2018-04-06 10:15] MED LIST changes: +B-12 100 MCG PO; +B-121000 MCG PO; +MUCUS RELIEF200 MG PO
[2018-04-09] MEDS ORDERED: DOXYCYCLINE 10100 MG PO (10:53)
[2018-04-09] MEDS ORDERED: PREDNISONE20 MG PO (10:55)
[2018-05-07] MEDS ORDERED: MUCUS RELIEF400 M1 PO (10:45)
[2018-05-10] MEDS ORDERED: PREDNISONE10 MG PO (10:05)
[2018-06-03] MEDS ORDERED: LASIX 20MG TABL20 MG PO (02:37)
[2018-06-03] MEDS ORDERED: KLOR-CON M1010 MEQ PO (02:37)
[2018-06-03] MEDS ORDERED: PERIOSTAT PO (02:39)
[2018-06-06] MEDS ORDERED: MEDROL 4MG DOSPA4 MG PO (09:31)
== END 2018-06-21 | disposition home or self-care (01) ==
LOC: WSST
DX: T17.908D Unspecified foreign body in respiratory tract, part unspecified causing other injury, subsequent encounter (principal); J44.9 Chronic obstructive pulmonary disease, unspecified; C34.92 Malignant neoplasm of unspecified part of left bronchus or lung
CPT/HCPCS: G8996-GN; G8997-GN

== ENCOUNTER 2018-04-08 21:53 | Observation (INO) | payer MEDICARE, OTHER ==
[~2018-04-08] VITALS: Ht 160 cm; Wt 72.8 kg
[2018-04-08 22:40] LABS: BASO % 0.1 % (0.0-2.0); GRAN # 11.7 (1.4-6.5); GRAN % 86.1 % (42.2-75.2); HEMOGLOBIN 12.7 g/dl (13.5-18.0); LYMPH # 1.1 (1.2-3.4); LYMPH % 8.1 % (20.0-51.0); MEAN CELL VOLUME 93 fl (80.0-100.0); MEAN CORPUSCULAR HEMOGLOBIN 30 pg (27.0-31.0); MEAN CORPUSCULAR HGB CONC 33 g/dl (33.0-37.0); MONO # 0.6 (0.1-0.6); MONO % 4.6 % (1.7-9.3); PLATELET COUNT 316 K/mm3 (130-400); RED BLOOD COUNT 4.19 M/mm3 (4.20-5.60); REDCELL DISTRIBUTION WIDTH-CV 12.6 % (11.5-14.5)
[2018-04-08 22:45] LABS: ALANINE AMINOTRANSFERASE 33 U/L (21-72); ALKALINE PHOSPHATASE 48 U/L (50-136); ANION GAP 13 mmol/L (7-16); AST,SGOT 23 U/L (15-37); BILIRUBIN,TOTAL 0.6 mg/dL (0.0-1.0); BLOOD UREA NITROGEN 19 mg/dL (9-20); CALCIUM 9.4 mg/dL (8.4-10.2); CARBON DIOXIDE 28 mmol/L (22-30); CHLORIDE 100 mmol/L (98-107); CREATININE, serum 0.96 mg/dL (0.66-1.25); GLUCOSE 113 mg/dL (74-106); LIPASE 82 U/L (23-300); POTASSIUM 4.7 mmol/L (3.4-5.0); SODIUM 142 mmol/L (137-145); TOTAL PROTEIN 6.7 gm/dL (6.4-8.2)
[2018-04-08 22:47] LABS: ARTERIAL BLD GAS O2 SATURATION 97.3 % (92-100); ARTERIAL BLD GAS TCO2 CT 30.4; ARTERIAL BLOOD GAS BASE EXCESS 3.4 (-2-2); ARTERIAL BLOOD GAS HCO3 28.9 meq/L (22-26); ARTERIAL BLOOD GAS PCO2 47.3 mmHg (35-45); ARTERIAL BLOOD GAS PO2 106.3 mmHg (80-100)
[2018-04-08 23:01] LABS: TROPONIN-I < 0.012 ng/mL (0.000-0.034)
[2018-04-09 02:20] VITALS: BP 144/74; PULSE 86; TEMP 98.9
[2018-04-09 08:51] VITALS: BP 148/62; PULSE 79; TEMP 98.5
[2018-04-09] MEDS ORDERED: DOXYCYCLINE 10100 MG PO (10:53)
[2018-04-09] MEDS ORDERED: PREDNISONE20 MG PO (10:55)
[2018-04-09 11:41] VITALS: BP 107/58; PULSE 93; TEMP 98.3
== END 2018-04-09 14:22 | disposition home or self-care (01) ==
LOC: COL.ER 21:53 → MEDICAL 04-09 01:32
PROVIDERS: Emergency Medicine
DX: J44.1 Chronic obstructive pulmonary disease with (acute) exacerbation (principal); J96.22 Acute and chronic respiratory failure with hypercapnia; I48.0 Paroxysmal atrial fibrillation; F03.90 Unspecified dementia, unspecified severity, without behavioral disturbance, psychotic disturbance, mood disturbance, and anxiety; N40.0 Benign prostatic hyperplasia without lower urinary tract symptoms; F32.9 Major depressive disorder, single episode, unspecified; Z79.51 Long term (current) use of inhaled steroids; Z88.5 Allergy status to narcotic agent; Z99.81 Dependence on supplemental oxygen; Z85.118 Personal history of other malignant neoplasm of bronchus and lung; Z85.51 Personal history of malignant neoplasm of bladder; Z87.891 Personal history of nicotine dependence
CPT/HCPCS: G8978-GP; G8979-GP; G8987-GO; G8988-GO; J0696; J1650; J7512

== ENCOUNTER 2018-06-27 16:48 | Observation (INO) | payer MEDICARE, OTHER ==
[~2018-06-27] VITALS: Ht 162.6 cm; Wt 74.7 kg
[~2018-06-27 16:48] MED LIST changes: +KLOR-CON M1010 MEQ PO; +LASIX 20MG TABL20 MG PO; +MEDROL 4MG DOSPA4 MG PO; +MUCUS RELIEF400 M1 PO; +PERIOSTAT PO
[2018-06-27 17:20] LABS: BASO % 0.7 % (0.0-2.0); EOS # 0.6 (0.0-0.7); EOS % 10.4 % (0-4.0); GRAN # 3.6 (1.4-6.5); GRAN % 60.3 % (42.2-75.2); HEMOGLOBIN 10.9 g/dl (13.5-18.0); LYMPH # 1.2 (1.2-3.4); LYMPH % 19.5 % (20.0-51.0); MEAN CELL VOLUME 94 fl (80.0-100.0); MEAN CORPUSCULAR HEMOGLOBIN 30 pg (27.0-31.0); MEAN CORPUSCULAR HGB CONC 32 g/dl (33.0-37.0); MEAN PLATELET VOLUME 10.5 fl (7.4-10.4); MONO # 0.5 (0.1-0.6); MONO % 8.8 % (1.7-9.3); PLATELET COUNT 238 K/mm3 (130-400); RED BLOOD COUNT 3.59 M/mm3 (4.20-5.60); REDCELL DISTRIBUTION WIDTH-CV 12.7 % (11.5-14.5)
[2018-06-27 17:21] LABS: HEMATOCRIT 33.8 % (42.0-52.0)
[2018-06-27 17:42] LABS: INR 0.9 (0.8-3.0); PROTHROMBIN TIME 10.4 SECONDS (9.7-12.8)
[2018-06-27 17:45] LABS: ALANINE AMINOTRANSFERASE 31 U/L (21-72); ALBUMIN 3.7 gm/dL (3.5-5.0); ALKALINE PHOSPHATASE 38 U/L (50-136); ANION GAP 6 mmol/L (7-16); AST,SGOT 27 U/L (15-37); BILIRUBIN,TOTAL 0.3 mg/dL (0.0-1.0); BLOOD UREA NITROGEN 10 mg/dL (9-20); CALCIUM 8.7 mg/dL (8.4-10.2); CARBON DIOXIDE 34 mmol/L (22-30); CHLORIDE 102 mmol/L (98-107); GLUCOSE 72 mg/dL (74-106); PARTIAL THROMBOPLASTIN TIME 37.2 SECONDS (26.0-37.0); POTASSIUM 4.5 mmol/L (3.4-5.0); SODIUM 142 mmol/L (137-145)
[2018-06-27 17:57] LABS: TROPONIN-I < 0.012 ng/mL (0.000-0.034)
[2018-06-27 18:23] LABS: ARTERIAL BLD GAS O2 SATURATION 95.7 % (92-100); ARTERIAL BLD GAS TCO2 CT 30.2; ARTERIAL BLOOD GAS BASE EXCESS 2.5 (-2-2); ARTERIAL BLOOD GAS HCO3 28.6 meq/L (22-26); ARTERIAL BLOOD GAS PCO2 51.2 mmHg (35-45); ARTERIAL BLOOD GAS PO2 91.2 mmHg (80-100); ARTERIAL BLOOD GAS pH 7.37 (7.35-7.45)
[2018-06-27] MEDS ORDERED: DIFLUCAN 10M10 MG/ML PO (18:24)
[2018-06-27] MEDS ORDERED: NITRO-DUR0.1 MG/PAT TD (18:25)
[2018-06-27 20:00] VITALS: BP 126/72; PULSE 84; TEMP 98.1
[2018-06-27 21:51] VITALS: BP 126/72; PULSE 84; TEMP 98.1
[2018-06-28] VITALS (7 sets, daily range): BP systolic 93–131; BP diastolic 46–68; PULSE 81–106; TEMP 97.9–98.5
[2018-06-28 05:21] LABS: ARTERIAL BLD GAS O2 SATURATION 95.8 % (92-100); ARTERIAL BLD GAS TCO2 CT 28.5; ARTERIAL BLOOD GAS BASE EXCESS 1.8 (-2-2); ARTERIAL BLOOD GAS HCO3 27.1 meq/L (22-26); ARTERIAL BLOOD GAS PCO2 45.7 mmHg (35-45); ARTERIAL BLOOD GAS PO2 85.7 mmHg (80-100); ARTERIAL BLOOD GAS pH 7.39 (7.35-7.45)
[2018-06-29 03:55] VITALS: BP 92/57; PULSE 91; TEMP 97.9
[2018-06-29 06:32] LABS: BASO % 0.1 % (0.0-2.0); GRAN # 12.2 (1.4-6.5); GRAN % 92.7 % (42.2-75.2); LYMPH # 0.4 (1.2-3.4); LYMPH % 3.1 % (20.0-51.0); MEAN CELL VOLUME 93 fl (80.0-100.0); MEAN CORPUSCULAR HEMOGLOBIN 30 pg (27.0-31.0); MEAN CORPUSCULAR HGB CONC 33 g/dl (33.0-37.0); MEAN PLATELET VOLUME 10.9 fl (7.4-10.4); MONO # 0.4 (0.1-0.6); PLATELET COUNT 264 K/mm3 (130-400); RED BLOOD COUNT 3.32 M/mm3 (4.20-5.60); REDCELL DISTRIBUTION WIDTH-CV 13.1 % (11.5-14.5)
[2018-06-29 06:34] LABS: HEMATOCRIT 30.7 % (42.0-52.0)
[2018-06-29 06:42] LABS: CALCIUM 9.3 mg/dL (8.4-10.2); CREATININE, serum 1.17 mg/dL (0.66-1.25); POTASSIUM 3.9 mmol/L (3.4-5.0)
[2018-06-29 07:16] LABS: BAND 13 % (0-10); LYMPHOCYTE 4 % (20.0-51.0); NEUTROPHILS 81 % (42.0-75.2)
[2018-06-29 07:17] LABS: PLATELET ESTIMATE NORMAL (NORMAL)
[2018-06-29 07:36] VITALS: BP 106/48; PULSE 102; TEMP 97.9
[2018-06-29] MEDS ORDERED: LEVAQUIN 5500 MG/TA1 PO (10:00)
[2018-06-29] MEDS ORDERED: ASPIRIN 81M81 MG/TA2 PO ×2 (10:01)
[2018-06-29] MEDS ORDERED: PREDNISONE10 MG PO (10:02)
[2018-06-29] MEDS ORDERED: VISTARIL 2525 MG/CAP PO ×2 (10:03)
[2018-06-29 11:14] VITALS: BP 108/69; PULSE 103; TEMP 97.9
== END 2018-06-29 16:00 | disposition home or self-care (01) ==
LOC: COL.ER 16:48 → MEDICAL 17:18
PROVIDERS: Family Medicine; Internal Medicine; Physician Assistant
DX: J44.1 Chronic obstructive pulmonary disease with (acute) exacerbation (principal); F03.90 Unspecified dementia, unspecified severity, without behavioral disturbance, psychotic disturbance, mood disturbance, and anxiety; R25.1 Tremor, unspecified; I48.0 Paroxysmal atrial fibrillation; R53.81 Other malaise; C34.90 Malignant neoplasm of unspecified part of unspecified bronchus or lung; C67.9 Malignant neoplasm of bladder, unspecified; F32.9 Major depressive disorder, single episode, unspecified; Z88.5 Allergy status to narcotic agent; Z88.8 Allergy status to other drugs, medicaments and biological substances; Z87.891 Personal history of nicotine dependence
CPT/HCPCS: 99222; G0378; G8978-GP; G8979-GP; G8987-GO; G8988-GO; J1650; J2920; J2930

== ENCOUNTER 2018-08-23 23:28 | Observation (INO) | payer MEDICARE, OTHER ==
[~2018-08-23] VITALS: Ht 160 cm; Wt 71.2 kg
[~2018-08-23 23:28] MED LIST changes: +ASPIRIN 81M81 MG/TA2 PO; +DIFLUCAN 10M10 MG/ML PO; +LEVAQUIN 750MG750 M1 PO; +NITRO-DUR0.1 MG/PAT TD; +VISTARIL 2525 MG/CAP PO
[2018-08-23 23:58] LABS: BASO % 0.5 % (0.0-2.0); EOS # 0.5 (0.0-0.7); EOS % 6.1 % (0-4.0); GRAN # 5.2 (1.4-6.5); GRAN % 68.1 % (42.2-75.2); HEMOGLOBIN 11.1 g/dl (13.5-18.0); LYMPH # 1.2 (1.2-3.4); MEAN CELL VOLUME 96 fl (80.0-100.0); MEAN CORPUSCULAR HEMOGLOBIN 31 pg (27.0-31.0); MEAN CORPUSCULAR HGB CONC 32 g/dl (33.0-37.0); MEAN PLATELET VOLUME 10.8 fl (7.4-10.4); MONO # 0.7 (0.1-0.6); MONO % 9.6 % (1.7-9.3); PLATELET COUNT 237 K/mm3 (130-400); REDCELL DISTRIBUTION WIDTH-CV 12.3 % (11.5-14.5)
[2018-08-24 00:10] LABS: HEMATOCRIT 34.4 % (42.0-52.0)
[2018-08-24 00:14] LABS: PROTHROMBIN TIME 11.7 SECONDS (9.7-12.8)
[2018-08-24 00:19] LABS: ALANINE AMINOTRANSFERASE 28 U/L (21-72); ALBUMIN 3.8 gm/dL (3.5-5.0); ALKALINE PHOSPHATASE 44 U/L (50-136); ANION GAP 7 mmol/L (7-16); AST,SGOT 22 U/L (15-37); BILIRUBIN,TOTAL 0.2 mg/dL (0.0-1.0); BLOOD UREA NITROGEN 19 mg/dL (9-20); CALCIUM 8.6 mg/dL (8.4-10.2); CARBON DIOXIDE 30 mmol/L (22-30); CHLORIDE 100 mmol/L (98-107); CREATININE, serum 1.14 mg/dL (0.66-1.25); GLUCOSE 100 mg/dL (74-106); POTASSIUM 3.9 mmol/L (3.4-5.0); SODIUM 136 mmol/L (137-145); TOTAL PROTEIN 6.2 gm/dL (6.4-8.2)
[2018-08-24 00:22] LABS: ARTERIAL BLD GAS O2 SATURATION 94.9 % (92-100); ARTERIAL BLD GAS TCO2 CT 31.7; ARTERIAL BLOOD GAS BASE EXCESS 4.1 (-2-2); ARTERIAL BLOOD GAS HCO3 30.1 meq/L (22-26); ARTERIAL BLOOD GAS PCO2 51.3 mmHg (35-45); ARTERIAL BLOOD GAS PO2 77.1 mmHg (80-100); ARTERIAL BLOOD GAS pH 7.39 (7.35-7.45)
[2018-08-24 00:36] LABS: TROPONIN-I < 0.012 ng/mL (0.000-0.034)
[2018-08-24] MEDS ORDERED: PREDNISONE20 MG PO (02:40)
[2018-08-24 03:13] VITALS: BP 124/64; PULSE 82; TEMP 97.6
[2018-08-24 08:22] VITALS: BP 126/72; PULSE 103; TEMP 97.4
[2018-08-24 11:58] VITALS: BP 124/68; PULSE 88; TEMP 98.5
[2018-08-24 15:29] LABS: ARTERIAL BLD GAS O2 SATURATION 95.1 % (92-100); ARTERIAL BLD GAS TCO2 CT 25.1; ARTERIAL BLOOD GAS BASE EXCESS -0.9 (-2-2); ARTERIAL BLOOD GAS HCO3 23.9 meq/L (22-26); ARTERIAL BLOOD GAS PCO2 40.2 mmHg (35-45); ARTERIAL BLOOD GAS PO2 76.9 mmHg (80-100); ARTERIAL BLOOD GAS pH 7.39 (7.35-7.45)
[2018-08-24 16:19] VITALS: BP 103/61; PULSE 103; TEMP 97.8
[2018-08-24 20:28] VITALS: BP 134/77; PULSE 65; TEMP 98
[2018-08-25 03:29] VITALS: BP 108/59; PULSE 88; TEMP 97.6
[2018-08-25 07:25] VITALS: BP 121/47; PULSE 103; TEMP 98
[2018-08-25 08:19] LABS: GRAN # 10.9 (1.4-6.5); GRAN % 86.6 % (42.2-75.2); HEMOGLOBIN 11.1 g/dl (13.5-18.0); LYMPH # 0.8 (1.2-3.4); LYMPH % 6.4 % (20.0-51.0); MEAN CELL VOLUME 94 fl (80.0-100.0); MEAN CORPUSCULAR HEMOGLOBIN 30 pg (27.0-31.0); MEAN CORPUSCULAR HGB CONC 32 g/dl (33.0-37.0); MEAN PLATELET VOLUME 10.9 fl (7.4-10.4); MONO # 0.8 (0.1-0.6); MONO % 6.3 % (1.7-9.3); PLATELET COUNT 264 K/mm3 (130-400); RED BLOOD COUNT 3.65 M/mm3 (4.20-5.60); REDCELL DISTRIBUTION WIDTH-CV 12.7 % (11.5-14.5)
[2018-08-25 08:22] LABS: HEMATOCRIT 34.4 % (42.0-52.0)
[2018-08-25 08:30] LABS: CREATININE, serum 0.84 mg/dL (0.66-1.25); POTASSIUM 3.5 mmol/L (3.4-5.0)
[2018-08-25 11:16] VITALS: BP 136/84; PULSE 75; TEMP 98.5
[2018-08-25 11:21] VITALS: BP 103/61; PULSE 69; TEMP 97.6
[2018-08-25 15:21] VITALS: BP 151/79; PULSE 96; TEMP 98
[2018-08-25 20:23] VITALS: BP 128/69; PULSE 90; TEMP 97.8
[2018-08-26 01:14] VITALS: BP 111/61; PULSE 74
[2018-08-26 03:54] VITALS: BP 127/63; PULSE 92; TEMP 97.7
[2018-08-26 08:13] LABS: BASO % 0.1 % (0.0-2.0); GRAN # 11.5 (1.4-6.5); GRAN % 88.8 % (42.2-75.2); LYMPH # 0.7 (1.2-3.4); LYMPH % 5.5 % (20.0-51.0); MEAN CELL VOLUME 94 fl (80.0-100.0); MEAN CORPUSCULAR HEMOGLOBIN 31 pg (27.0-31.0); MEAN CORPUSCULAR HGB CONC 32 g/dl (33.0-37.0); MEAN PLATELET VOLUME 10.6 fl (7.4-10.4); MONO # 0.6 (0.1-0.6); MONO % 4.4 % (1.7-9.3); PLATELET COUNT 246 K/mm3 (130-400); RED BLOOD COUNT 3.59 M/mm3 (4.20-5.60); REDCELL DISTRIBUTION WIDTH-CV 12.8 % (11.5-14.5)
[2018-08-26 08:16] LABS: HEMATOCRIT 33.9 % (42.0-52.0)
[2018-08-26 08:24] LABS: CALCIUM 9.3 mg/dL (8.4-10.2); CREATININE, serum 0.8 mg/dL (0.66-1.25); POTASSIUM 3.9 mmol/L (3.4-5.0)
[2018-08-26 09:14] VITALS: BP 103/49; PULSE 97; TEMP 98.4
[2018-08-26] MEDS ORDERED: LEVAQUIN 750MG750 M1 PO (09:54)
[2018-08-26] MEDS ORDERED: PREDNISONE20 MG PO (09:55)
[2018-08-27] MEDS ORDERED: TESSALON PERLE200 MG PO (09:44)
[2018-08-27] MEDS ORDERED: PROMETHAZINE H118 ML PO (09:45)
== END 2018-08-26 12:07 | disposition home or self-care (01) ==
LOC: COL.ER 23:28 → MEDICAL 08-24 00:50
PROVIDERS: Emergency Medicine; Nurse Practitioner; Nurse Practitioner Family; Physician Assistant
DX: J44.1 Chronic obstructive pulmonary disease with (acute) exacerbation (principal); J96.22 Acute and chronic respiratory failure with hypercapnia; C34.90 Malignant neoplasm of unspecified part of unspecified bronchus or lung; R33.9 Retention of urine, unspecified; C67.9 Malignant neoplasm of bladder, unspecified; F03.90 Unspecified dementia, unspecified severity, without behavioral disturbance, psychotic disturbance, mood disturbance, and anxiety; R25.1 Tremor, unspecified; I48.0 Paroxysmal atrial fibrillation; F32.9 Major depressive disorder, single episode, unspecified; Z88.5 Allergy status to narcotic agent; Z88.8 Allergy status to other drugs, medicaments and biological substances; Z87.891 Personal history of nicotine dependence; Z85.118 Personal history of other malignant neoplasm of bronchus and lung; Z92.3 Personal history of irradiation
CPT/HCPCS: G0008; G0378; G8978-GP; G8979-GP; G8987-GO; G8988-GO; J1650; J1956; J2930; J7030

== ENCOUNTER 2018-08-27 08:10 | Day surgery (SDC) | payer MEDICARE, OTHER ==
[~2018-08-27] VITALS: Ht 160 cm; Wt 75.8 kg
[2018-08-27 09:31] VITALS: BP 120/77; PULSE 75; TEMP 98.5
[2018-08-27] MEDS ORDERED: TESSALON PERLE200 MG PO (09:44)
[2018-08-27] MEDS ORDERED: PROMETHAZINE H118 ML PO (09:45)
[2018-08-27 11:33] VITALS: BP 109/65; PULSE 67; TEMP 98.4
[2018-08-27 11:45] VITALS: BP 82/54; PULSE 71
[2018-08-27 12:00] VITALS: BP 106/78; PULSE 67
[2018-08-27 12:15] VITALS: BP 103/57; PULSE 71
== END 2018-08-27 13:00 | disposition home or self-care (01) ==
LOC: SDCO 08:10
DX: K21.9 Gastro-esophageal reflux disease without esophagitis (principal); R05 Cough; F41.9 Anxiety disorder, unspecified; J44.9 Chronic obstructive pulmonary disease, unspecified; F32.9 Major depressive disorder, single episode, unspecified; G47.33 Obstructive sleep apnea (adult) (pediatric); J96.11 Chronic respiratory failure with hypoxia; R13.10 Dysphagia, unspecified; N40.0 Benign prostatic hyperplasia without lower urinary tract symptoms; I48.91 Unspecified atrial fibrillation; F03.90 Unspecified dementia, unspecified severity, without behavioral disturbance, psychotic disturbance, mood disturbance, and anxiety; Z88.5 Allergy status to narcotic agent; Z85.118 Personal history of other malignant neoplasm of bronchus and lung; Z92.3 Personal history of irradiation; Z85.51 Personal history of malignant neoplasm of bladder; Z87.891 Personal history of nicotine dependence
CPT/HCPCS: C1726; J2704; J7030

== ENCOUNTER 2018-10-23 20:21 | Emergency (ER) | payer MEDICARE, OTHER ==
[~2018-10-23] VITALS: Ht 160 cm; Wt 72.7 kg
[~2018-10-23 20:21] MED LIST changes: +Lidocaine 4% Patch TP; +NORCO 325 MG-101 TAB PO; +PROMETHAZINE H118 ML PO; +TESSALON PERLE200 MG PO
[2018-10-23 20:28] VITALS: TEMP 98.9
[2018-10-23 20:51] LABS: ARTERIAL BLD GAS O2 SATURATION 92.3 % (92-100); ARTERIAL BLD GAS TCO2 CT 29.5; ARTERIAL BLOOD GAS BASE EXCESS 3.3 (-2-2); ARTERIAL BLOOD GAS HCO3 28.2 meq/L (22-26); ARTERIAL BLOOD GAS PCO2 43.9 mmHg (35-45); ARTERIAL BLOOD GAS PO2 66.1 mmHg (80-100); ARTERIAL BLOOD GAS pH 7.43 (7.35-7.45)
[2018-10-23 21:00] LABS: BASO % 0.1 % (0.0-2.0); GRAN # 11.7 (1.4-6.5); GRAN % 94.9 % (42.2-75.2); HEMOGLOBIN 11.6 g/dl (13.5-18.0); LYMPH # 0.3 (1.2-3.4); LYMPH % 2.2 % (20.0-51.0); MEAN CELL VOLUME 96 fl (80.0-100.0); MEAN CORPUSCULAR HEMOGLOBIN 31 pg (27.0-31.0); MEAN CORPUSCULAR HGB CONC 33 g/dl (33.0-37.0); MEAN PLATELET VOLUME 10.8 fl (7.4-10.4); MONO # 0.2 (0.1-0.6); MONO % 1.7 % (1.7-9.3); PLATELET COUNT 291 K/mm3 (130-400); RED BLOOD COUNT 3.72 M/mm3 (4.20-5.60); REDCELL DISTRIBUTION WIDTH-CV 12.4 % (11.5-14.5)
[2018-10-23 21:02] LABS: HEMATOCRIT 35.6 % (42.0-52.0)
[2018-10-23 21:04] LABS: INR 1.1 (0.8-3.0)
[2018-10-23 21:10] LABS: ALANINE AMINOTRANSFERASE 33 U/L (21-72); ALBUMIN 4.1 gm/dL (3.5-5.0); ALKALINE PHOSPHATASE 51 U/L (50-136); ANION GAP 6 mmol/L (7-16); AST,SGOT 23 U/L (15-37); BILIRUBIN,TOTAL 0.3 mg/dL (0.0-1.0); BLOOD UREA NITROGEN 24 mg/dL (9-20); CARBON DIOXIDE 33 mmol/L (22-30); CHLORIDE 103 mmol/L (98-107); CREATININE, serum 0.98 mg/dL (0.66-1.25); GLUCOSE 139 mg/dL (74-106); POTASSIUM 5.5 mmol/L (3.4-5.0); SODIUM 142 mmol/L (137-145); TOTAL PROTEIN 6.4 gm/dL (6.4-8.2)
[2018-10-23 21:23] LABS: TROPONIN-I < 0.012 ng/mL (0.000-0.034)
[2018-10-23 21:34] LABS: COLLECTION METHOD CLEAN CATCH
[2018-10-23 22:04] LABS: MUCOUS Present /lpf; PH 8 (5-8); SQUAMOUS EPITHELIAL None Seen /hpf; URINE APPEARANCE Clear; URINE BACTERIA None Seen /hpf; URINE BILIRUBIN Negative (NEGATIVE); URINE BLOOD Negative (NEGATIVE); URINE COLOR Yellow; URINE GLUCOSE Negative (NEGATIVE); URINE KETONE Negative (NEGATIVE); URINE LEUKOCYTE ESTERASE Negative (NEGATIVE); URINE NITRATE Negative (NEGATIVE); URINE PROTEIN(semi-quant) Negative (NEGATIVE); URINE RBC 0-2 /hpf; URINE UROBILINOGEN Negative (NEGATIVE)
[2018-10-24] MEDS ORDERED: LEVAQUIN 750MG750 M1 PO (00:37)
[2018-10-24] MEDS ORDERED: LIDODERM 5% PATC1 EA TP (00:37)
[2018-10-24 01:09] VITALS: BP 112/57; PULSE 69
== END 2018-10-24 01:09 | disposition home or self-care (01) ==
LOC: COL.ER 20:21
PROVIDERS: Emergency Medicine
DX: J44.9 Chronic obstructive pulmonary disease, unspecified (principal); R65.10 Systemic inflammatory response syndrome (SIRS) of non-infectious origin without acute organ dysfunction; M54.5 Low back pain; E87.5 Hyperkalemia; Z87.891 Personal history of nicotine dependence; Z85.118 Personal history of other malignant neoplasm of bronchus and lung; Z85.51 Personal history of malignant neoplasm of bladder; Z98.890 Other specified postprocedural states
CPT/HCPCS: J2270; J2543; J7030; Q9967

== ENCOUNTER → 2018-10-30 | Outpatient (REF) ==
[~2018-10-30] MED LIST changes: +LIDODERM 5% PATC1 EA TP
[2018-10-30 16:47] LABS: CALCIUM 8.9 mg/dL (8.4-10.2); CREATININE, serum 0.99 mg/dL (0.66-1.25); POTASSIUM 4.6 mmol/L (3.4-5.0)
== END ==
LOC: ZLAB.WCH 16:34
PROVIDERS: Internal Medicine
DX: Z01.89 Encounter for other specified special examinations (principal)

== ENCOUNTER 2018-11-15 10:22 | Inpatient (IN) | payer MEDICARE, OTHER ==
[~2018-11-15] VITALS: Ht 160 cm; Wt 78.1 kg
[2018-11-15] VITALS (394 sets, daily range): BP systolic 107–115; BP diastolic 64–97; PULSE 63–87; TEMP 97.8–98.6; O2SAT 81–100
[2018-11-15 10:50] LABS: BASO % 0.3 % (0.0-2.0); EOS # 0.1 (0.0-0.7); EOS % 0.5 % (0-4.0); GRAN # 8.2 (1.4-6.5); GRAN % 74.6 % (42.2-75.2); HEMOGLOBIN 10.5 g/dl (13.5-18.0); LYMPH # 1.7 (1.2-3.4); LYMPH % 15.3 % (20.0-51.0); MEAN CELL VOLUME 97 fl (80.0-100.0); MEAN CORPUSCULAR HEMOGLOBIN 30 pg (27.0-31.0); MEAN CORPUSCULAR HGB CONC 31 g/dl (33.0-37.0); MEAN PLATELET VOLUME 10.2 fl (7.4-10.4); MONO # 0.9 (0.1-0.6); MONO % 8.5 % (1.7-9.3); PLATELET COUNT 236 K/mm3 (130-400); RED BLOOD COUNT 3.47 M/mm3 (4.20-5.60); REDCELL DISTRIBUTION WIDTH-CV 12.6 % (11.5-14.5)
[2018-11-15 10:58] LABS: HEMATOCRIT 33.7 % (42.0-52.0)
[2018-11-15 11:02] LABS: ALANINE AMINOTRANSFERASE 33 U/L (21-72); ALBUMIN 3.5 gm/dL (3.5-5.0); ALKALINE PHOSPHATASE 61 U/L (50-136); ANION GAP 9 mmol/L (7-16); AST,SGOT 27 U/L (15-37); BILIRUBIN,TOTAL 0.2 mg/dL (0.0-1.0); BLOOD UREA NITROGEN 22 mg/dL (9-20); CALCIUM 9.3 mg/dL (8.4-10.2); CARBON DIOXIDE 31 mmol/L (22-30); CHLORIDE 103 mmol/L (98-107); CREATININE, serum 1.01 mg/dL (0.66-1.25); GLUCOSE 104 mg/dL (74-106); LIPASE 33 U/L (23-300); MAGNESIUM 1.9 mg/dL (1.6-2.3); SODIUM 143 mmol/L (137-145)
[2018-11-15 11:03] LABS: INR 0.9 (0.8-3.0); PROTHROMBIN TIME 10.6 SECONDS (9.7-12.8)
[2018-11-15 11:06] LABS: PARTIAL THROMBOPLASTIN TIME 30.6 SECONDS (26.0-37.0)
[2018-11-15 11:17] LABS: TROPONIN-I < 0.012 ng/mL (0.000-0.034)
[2018-11-15] MEDS ORDERED: FENTANYL 50MCG TOP (11:22)
[2018-11-15 13:00] LABS: COLLECTION METHOD CLEAN CATCH
[2018-11-15 13:19] LABS: MUCOUS Present /lpf; PH 5 (5-8); SQUAMOUS EPITHELIAL 0-2 /hpf; URINE APPEARANCE Clear; URINE BACTERIA None Seen /hpf; URINE BILIRUBIN Negative (NEGATIVE); URINE BLOOD Negative (NEGATIVE); URINE COLOR Yellow; URINE GLUCOSE Negative (NEGATIVE); URINE KETONE Negative (NEGATIVE); URINE LEUKOCYTE ESTERASE Negative (NEGATIVE); URINE NITRATE Negative (NEGATIVE); URINE PROTEIN(semi-quant) Negative (NEGATIVE); URINE RBC 0-2 /hpf; URINE UROBILINOGEN Negative (NEGATIVE)
[2018-11-16] VITALS (409 sets, daily range): BP systolic 107–116; BP diastolic 54–76; PULSE 53–87; TEMP 97.4–98.5; O2SAT 81–100
[2018-11-16 05:30] LABS: BASO % 0.1 % (0.0-2.0); GRAN # 7.3 (1.4-6.5); GRAN % 90.1 % (42.2-75.2); LYMPH # 0.4 (1.2-3.4); LYMPH % 4.7 % (20.0-51.0); MEAN CELL VOLUME 96 fl (80.0-100.0); MEAN CORPUSCULAR HGB CONC 31 g/dl (33.0-37.0); MEAN PLATELET VOLUME 10.2 fl (7.4-10.4); MONO # 0.4 (0.1-0.6); MONO % 4.6 % (1.7-9.3); PLATELET COUNT 206 K/mm3 (130-400); RED BLOOD COUNT 2.75 M/mm3 (4.20-5.60)
[2018-11-16 05:34] LABS: HEMATOCRIT 26.3 % (42.0-52.0); HEMOGLOBIN 8.2 g/dl (13.5-18.0); MEAN CORPUSCULAR HEMOGLOBIN 30 pg (27.0-31.0)
[2018-11-16 05:40] LABS: CALCIUM 8.5 mg/dL (8.4-10.2); CREATININE, serum 0.74 mg/dL (0.66-1.25); MAGNESIUM 1.8 mg/dL (1.6-2.3); POTASSIUM 4.2 mmol/L (3.4-5.0)
[2018-11-16 06:11] LABS: BAND 18 % (0-10); HYPOCHROMIA 2+; LYMPHOCYTE 8 % (20.0-51.0); NEUTROPHILS 70 % (42.0-75.2); PLATELET ESTIMATE NORMAL (NORMAL)
[2018-11-17 00:15] VITALS: BP 109/58; PULSE 88; TEMP 97
[2018-11-17 02:59] VITALS: BP 127/65; PULSE 76; TEMP 98.3
[2018-11-17 08:10] VITALS: BP 141/76; PULSE 67; TEMP 98.6
[2018-11-17] MEDS ORDERED: ULTRAM 50MG TAB50 MG PO (15:34)
[2018-11-17] MEDS ORDERED: PREDNISONE10 MG PO (15:39)
[2018-11-17] MEDS ORDERED: RECLAST5 MG/100 M IV (15:46)
[2018-11-17 16:00] VITALS: BP 126/74; PULSE 69; TEMP 98
[2018-11-17] MEDS ORDERED: LIDODERM 5% PATC1 EA TP (16:04)
[2018-11-17] MEDS ORDERED: PERCOCET 325 MG1 TA2 PO (17:05)
[2018-11-17 21:48] VITALS: BP 100/49; PULSE 97; TEMP 100.5
[2018-11-18] VITALS: BP 106/54; PULSE 79; TEMP 98.8
== END 2018-11-17 20:55 | disposition home or self-care (01) | DRG 191 ==
LOC: COL.ER 10:22 → ICU 13:01 → MEDICAL 11-16 11:16
PROVIDERS: Emergency Medicine; Nurse Practitioner Family
DX: J44.1 Chronic obstructive pulmonary disease with (acute) exacerbation (principal); J96.11 Chronic respiratory failure with hypoxia; M48.54XA Collapsed vertebra, not elsewhere classified, thoracic region, initial encounter for fracture; C34.12 Malignant neoplasm of upper lobe, left bronchus or lung; E87.2 Acidosis; I48.0 Paroxysmal atrial fibrillation; F03.90 Unspecified dementia, unspecified severity, without behavioral disturbance, psychotic disturbance, mood disturbance, and anxiety; Z85.51 Personal history of malignant neoplasm of bladder; Z87.891 Personal history of nicotine dependence; F41.8 Other specified anxiety disorders; R25.1 Tremor, unspecified; N40.0 Benign prostatic hyperplasia without lower urinary tract symptoms; R13.10 Dysphagia, unspecified
CPT/HCPCS: 99222-AI; 99232-AI; 99238; G0378; G8978-GP; G8979-GP; G8987-GO; G8988-GO; J0692; J1650; J2270; J2920; J2930; J3370; J7030; J7050; J7512; Q9967

== ENCOUNTER 2018-11-25 08:18 | Outpatient (CLI) | payer MEDICARE, OTHER ==
[2018-11-25] VITALS (10 sets, daily range): BP systolic 94–134; BP diastolic 57–91; PULSE 82–99; TEMP 97.8–98
[~2018-11-25] VITALS: Ht 160.1 cm; Wt 65.0 kg
[~2018-11-25 08:18] MED LIST changes: +FENTANYL 50MCG TOP; +PERCOCET 325 MG1 TA2 PO; +RECLAST5 MG/100 M IV
[2018-11-25] MEDS ORDERED: LIDODERM 5% PATC1 EA TP (08:58)
[2018-11-25] MEDS ORDERED: PERCOCET 325 MG1 TA2 PO (08:59)
[2018-11-25] MEDS ORDERED: ULTRAM 50MG TAB50 MG PO (09:00)
--- NOTE | 2018-11-25 10:42 | NUR ---
ALL MEDICATIONS GIVEN WITH VERBAL ORDER AND READBACK WITH MD. SEE MERGE FOR ALL MEDICATION ADMIN TIMES.
--- NOTE | 2018-11-25 11:35 | NUR ---
Pt returned to EU 10 per bed s/p vert. Pt resting well, at bedside. Pt remains on 3.5 L O2 per NC.
--- NOTE | 2018-11-25 14:05 | NUR ---
Pt has ambulated, voided and wander PO intake s n/v. Pt reports no pain with ambulation.
--- NOTE | 2018-11-25 14:20 | NUR ---
PIV removed with catheter intact.
--- NOTE | 2018-11-25 14:30 | NUR ---
Pt discharged per w/c by nurse with .
== END 2018-11-25 15:05 | disposition home or self-care (01) ==
LOC: COL.CAR 08:18
DX: S22.060A Wedge compression fracture of T7-T8 vertebra, initial encounter for closed fracture (principal); J44.9 Chronic obstructive pulmonary disease, unspecified; Z88.5 Allergy status to narcotic agent; Z91.048 Other nonmedicinal substance allergy status; Z79.52 Long term (current) use of systemic steroids; Z85.51 Personal history of malignant neoplasm of bladder; Z85.118 Personal history of other malignant neoplasm of bronchus and lung; Z87.891 Personal history of nicotine dependence
CPT/HCPCS: C1713; J2250; J3010; J7120

== ENCOUNTER 2019-02-01 10:44 | Outpatient (CLI) | payer MEDICARE, OTHER ==
[2019-02-01 11:00] VITALS: BP 122/74; PULSE 68; TEMP 97
[2019-02-01] MEDS ORDERED: ALLFEN400 MG PO (12:16)
--- NOTE | 2019-02-01 12:34 | NUR ---
Jaye, Pharmacist in to speak with pt/spouse in regards to medication.
== END 2019-02-01 13:00 | disposition home or self-care (01) ==
LOC: EUO 10:44
DX: M81.0 Age-related osteoporosis without current pathological fracture (principal)
CPT/HCPCS: J0897

== ENCOUNTER 2019-02-10 14:30 | Outpatient (RCR) | payer MEDICARE, OTHER ==
[~2019-02-10 14:30] MED LIST changes: +ALLFEN400 MG PO
[2019-03-08] MEDS ORDERED: LASIX 20MG TABL20 MG PO (15:10)
[2019-03-08] MEDS ORDERED: K-TAB10 PO (15:11)
[2019-03-11] MEDS ORDERED: LEVAQUIN 750MG750 M1 PO (08:20)
[2019-03-11] MEDS ORDERED: PREDNISONE20 MG PO (08:22)
[2019-03-11] MEDS ORDERED: K-TAB10 PO (14:53)
[2019-03-11] MEDS ORDERED: LASIX 20MG TABL20 MG PO (14:53)
== END 2019-03-15 10:17 | disposition home or self-care (01) ==
LOC: MKS.ESL.PT 14:30
DX: M48.56XD Collapsed vertebra, not elsewhere classified, lumbar region, subsequent encounter for fracture with routine healing (principal)

== ENCOUNTER 2019-03-08 12:28 | Inpatient (IN) | payer MEDICARE, OTHER ==
[~2019-03-08] VITALS: Ht 160 cm; Wt 63.9 kg
[2019-03-08 12:59] LABS: BASO # 0.1 (0.0-0.2); BASO % 0.4 % (0.0-2.0); EOS # 0.4 (0.0-0.7); EOS % 1.9 % (0-4.0); GRAN # 15.9 (1.4-6.5); GRAN % 79.4 % (42.2-75.2); HEMATOCRIT 41.7 % (42.0-52.0); LYMPH # 2.5 (1.2-3.4); LYMPH % 12.4 % (20.0-51.0); MEAN CELL VOLUME 93 fl (80.0-100.0); MEAN CORPUSCULAR HEMOGLOBIN 29 pg (27.0-31.0); MEAN CORPUSCULAR HGB CONC 31 g/dl (33.0-37.0); MEAN PLATELET VOLUME 10.6 fl (7.4-10.4); PLATELET COUNT 289 K/mm3 (130-400); RED BLOOD COUNT 4.47 M/mm3 (4.20-5.60); REDCELL DISTRIBUTION WIDTH-CV 14.3 % (11.5-14.5)
[2019-03-08 13:13] LABS: PROTHROMBIN TIME 10.8 SECONDS (9.7-12.8)
[2019-03-08 13:26] LABS: ALANINE AMINOTRANSFERASE 25 U/L (21-72); ALBUMIN 3.9 gm/dL (3.5-5.0); ALKALINE PHOSPHATASE 50 U/L (50-136); ANION GAP 8 mmol/L (7-16); AST,SGOT 20 U/L (15-37); BILIRUBIN,TOTAL 0.5 mg/dL (0.0-1.0); BLOOD UREA NITROGEN 21 mg/dL (9-20); CALCIUM 8.8 mg/dL (8.4-10.2); CARBON DIOXIDE 31 mmol/L (22-30); CHLORIDE 102 mmol/L (98-107); CREATININE, serum 0.95 (0.66-1.25); GLUCOSE 98 mg/dL (74-106); LIPASE 70 U/L (23-300); POTASSIUM 4.1 mmol/L (3.4-5.0); SODIUM 140 mmol/L (137-145); TOTAL PROTEIN 6.4 gm/dL (6.4-8.2)
[2019-03-08 13:46] LABS: TROPONIN-I < 0.012 ng/mL (0.000-0.035)
[2019-03-08] MEDS ORDERED: LASIX 20MG TABL20 MG PO (15:10)
[2019-03-08] MEDS ORDERED: K-TAB10 PO (15:11)
--- NOTE | 2019-03-08 17:15 | NUR ---
arrived on unit per stretcher, assisted off stretcher and ambulated into bed, at bedside
[2019-03-08 17:56] VITALS: BP 94/51; PULSE 79; TEMP 97.5
--- NOTE | 2019-03-08 18:00 | NUR ---
full assessment completed, see for further info
--- NOTE | 2019-03-08 18:46 | NUR ---
bedside shift report given to DARELL Germain
[2019-03-08 20:00] VITALS: BP 98/58; PULSE 80; TEMP 97.9
--- NOTE | 2019-03-08 20:15 | NUR ---
Shift assessment complete. Pt resting in bed, awake, a&o, cooperative c cares. Pt denies pain or other c/o. IV patent. Tele in place. O2 per NC. Pt denies needs at this time. Call light in reach, will monitor.
[2019-03-09] VITALS: BP 96/58; PULSE 68; TEMP 97.7
[2019-03-09 03:44] VITALS: BP 100/66; PULSE 73; TEMP 97.5
[2019-03-09 07:26] LABS: MEAN CELL VOLUME 90 fl (80.0-100.0); MEAN CORPUSCULAR HGB CONC 32 g/dl (33.0-37.0); MEAN PLATELET VOLUME 11.3 fl (7.4-10.4); PLATELET COUNT 226 K/mm3 (130-400); RED BLOOD COUNT 3.51 M/mm3 (4.20-5.60)
[2019-03-09 07:29] LABS: HEMATOCRIT 31.5 % (42.0-52.0); HEMOGLOBIN 10.1 g/dl (13.5-18.0); MEAN CORPUSCULAR HEMOGLOBIN 29 pg (27.0-31.0)
[2019-03-09 07:30] LABS: CALCIUM 8.1 mg/dL (8.4-10.2); CREATININE, serum 0.86 (0.66-1.25); MAGNESIUM 2.4 mg/dL (1.6-2.3); POTASSIUM 4.3 mmol/L (3.4-5.0)
[2019-03-09 07:56] VITALS: BP 122/64; PULSE 70; TEMP 98.1
--- NOTE | 2019-03-09 08:00 | NUR ---
Patient in bed resting. Alert and oriented x3. Shift assessment complete. Denies pain at this time. Denies further needs at this time.
[2019-03-09 08:17] LABS: LYMPHOCYTE 2 % (20.0-51.0); MYELOCYTE 1 % (0-0); NEUTROPHILS 97 % (42.0-75.2); PLATELET ESTIMATE NORMAL (NORMAL)
[2019-03-09 08:18] LABS: TOXIC GRANULATION PRESENT
--- NOTE | 2019-03-09 10:35 | NUR ---
Initial visit; Patient thanked Electron Tube Assembler for looking in on him and offering prayer and encouragement.
[2019-03-09 12:00] VITALS: BP 109/62; PULSE 78; TEMP 97.6
--- NOTE | 2019-03-09 13:15 | NUR ---
SW student met with patient to discuss discharge plan. Patient lives outside of [place] with is (Suzanna Newby). Patient's PCP is Dr. Bryan Magana and he uses [facility]. Patient reports independence with ADLs. Assistive devices at home include a cane, walker, bipap, and home oxygen from [employer]. Patient's DPOA-HC is in EMR and it designates his . Patient plans to return home with his upon discharge. No identified needs at this time.
[2019-03-09 16:16] VITALS: BP 116/58; PULSE 99; TEMP 97.8
--- NOTE | 2019-03-09 17:51 | NUR ---
Patient has been up in recliner throughout the day. Reminded patient to use call light when needing to get up out of bed. Denies pain or further needs at this time. Will report off to slot shift supervisor.
[2019-03-09 20:41] VITALS: BP 140/90; PULSE 109; TEMP 98.3
--- NOTE | 2019-03-09 21:00 | NUR ---
Patient up frequently to urinate, reports this is normal for him. Is in bed, has oxygen on at 3L/nc. Lungs diminished bilaterally. Has significant tremoring to upper extremities, on Primidone. SL to right forearm without redness or swelling, on IV Solumedrol. Is alert and oriented x3. Reports BM this shift.
[2019-03-10 00:34] VITALS: BP 126/58; PULSE 86; TEMP 98.1
--- NOTE | 2019-03-10 04:00 | NUR ---
Patient up several times on his own in the room, even though he has been reminded of using the call light and has had bed alarm on. Wearing oxygen at 3L/nc.
[2019-03-10 04:03] VITALS: BP 130/81; PULSE 84; TEMP 98.6
--- NOTE | 2019-03-10 06:00 | NUR ---
Patient did not sleep well, asking when the doctor will be in, patient is wondering when he can go home.
[2019-03-10 06:58] LABS: HEMOGLOBIN 11.6 g/dl (13.5-18.0); MEAN CELL VOLUME 90 fl (80.0-100.0); MEAN CORPUSCULAR HEMOGLOBIN 29 pg (27.0-31.0); MEAN CORPUSCULAR HGB CONC 32 g/dl (33.0-37.0); MEAN PLATELET VOLUME 11.3 fl (7.4-10.4); PLATELET COUNT 287 K/mm3 (130-400); RED BLOOD COUNT 4.04 M/mm3 (4.20-5.60); REDCELL DISTRIBUTION WIDTH-CV 14.2 % (11.5-14.5)
[2019-03-10 07:05] LABS: CALCIUM 9.2 mg/dL (8.4-10.2); CREATININE, serum 0.86 (0.66-1.25); POTASSIUM 3.9 mmol/L (3.4-5.0)
[2019-03-10 07:08] LABS: HEMATOCRIT 36.5 % (42.0-52.0)
--- NOTE | 2019-03-10 07:33 | NUR ---
Notified Rosibel FELIZ of critical labs
[2019-03-10 07:35] LABS: BAND 2 % (0-10); LYMPHOCYTE 2 % (20.0-51.0); NEUTROPHILS 91 % (42.0-75.2)
[2019-03-10 07:36] LABS: PLATELET ESTIMATE NORMAL (NORMAL)
[2019-03-10 08:02] VITALS: BP 109/59; PULSE 71; TEMP 97.9
--- NOTE | 2019-03-10 08:30 | NUR ---
Patient in bed resting. Alert and oriented x 3. Shift assessment complete. Patient on 3L of oxygen via NC. Denies pain at this time. INT to right AC patent. Denies further needs at this time.
[2019-03-10 11:14] VITALS: BP 107/56; PULSE 82; TEMP 97.9
[2019-03-10 15:30] VITALS: BP 110/60; PULSE 84; TEMP 98
[2019-03-10 16:37] LABS: COLLECTION METHOD CLEAN CATCH
[2019-03-10 16:43] LABS: MUCOUS Present /lpf; PH 5 (5-8); SQUAMOUS EPITHELIAL None Seen /hpf; URINE APPEARANCE Clear; URINE BACTERIA None Seen /hpf; URINE BILIRUBIN Negative (NEGATIVE); URINE BLOOD Negative (NEGATIVE); URINE COLOR Yellow; URINE GLUCOSE Negative (NEGATIVE); URINE KETONE Negative (NEGATIVE); URINE LEUKOCYTE ESTERASE Negative (NEGATIVE); URINE NITRATE Negative (NEGATIVE); URINE PROTEIN(semi-quant) Negative (NEGATIVE); URINE RBC 0-2 /hpf; URINE UROBILINOGEN Negative (NEGATIVE)
--- NOTE | 2019-03-10 18:23 | NUR ---
Patient was assisted with commode x1. Urine is clear, yellow with no malodor. Patient was assisted to bed where he did not want to lie down, but wanted to sit on the edge of the bed. Patient's bed alarm is on and call light is in reach. This nurse assisted patient with ordering his dinner. Patient's was here most of the day to visit with patient. This nurse attempted IV x 1 unsuccessful to left anterior arm. Patient tolerated well and denied any pain or discomfort with attempt. Area shows no bruising or discoloration at this time.
--- NOTE | 2019-03-10 19:27 | NUR ---
Patient in recliner. Chair alarm on. Showered independently this afternoon. IV to right AC began bleeding during shower and was discontinued by nurse. Catheter tip intact. Pressure applied for bleeding, Coban to AC for continued bleeding. Restarted IV to left forarm. Tolerated procedure well. Denies further needs at this time. Reported off to shift supervisor rn.
[2019-03-10 20:11] VITALS: BP 104/72; PULSE 83; TEMP 98.4
--- NOTE | 2019-03-10 21:00 | NUR ---
Patient in bed, awakened for HS meds. Patient has oxygen on at 4l/nc. Lungs diminished bilaterally. Reports not feeling as short of breath as yesterday. SL to left forearm without redness or swelling. No concerns offered at this time.
[2019-03-11 01:17] VITALS: BP 101/53; PULSE 55; TEMP 98.3
[2019-03-11 04:30] VITALS: BP 107/58; PULSE 51; TEMP 97.9
--- NOTE | 2019-03-11 06:00 | NUR ---
Patient rested well during the night. No concerns offered this AM.
[2019-03-11 06:55] LABS: BASO % 0.1 % (0.0-2.0); GRAN # 12.4 (1.4-6.5); GRAN % 87.2 % (42.2-75.2); LYMPH # 0.9 (1.2-3.4); LYMPH % 6.2 % (20.0-51.0); MEAN CELL VOLUME 90 fl (80.0-100.0); MEAN CORPUSCULAR HGB CONC 32 g/dl (33.0-37.0); MEAN PLATELET VOLUME 11.5 fl (7.4-10.4); MONO # 0.8 (0.1-0.6); MONO % 5.6 % (1.7-9.3); PLATELET COUNT 238 K/mm3 (130-400); RED BLOOD COUNT 3.36 M/mm3 (4.20-5.60); REDCELL DISTRIBUTION WIDTH-CV 14.3 % (11.5-14.5)
[2019-03-11 07:10] LABS: CALCIUM 8.8 mg/dL (8.4-10.2); CREATININE, serum 0.95 (0.66-1.25); POTASSIUM 3.6 mmol/L (3.4-5.0)
[2019-03-11 07:17] LABS: HEMATOCRIT 30.2 % (42.0-52.0); HEMOGLOBIN 9.6 g/dl (13.5-18.0); MEAN CORPUSCULAR HEMOGLOBIN 29 pg (27.0-31.0)
[2019-03-11 08:07] VITALS: BP 103/57; PULSE 62; TEMP 97.7
[2019-03-11] MEDS ORDERED: LEVAQUIN 750MG750 M1 PO (08:20)
[2019-03-11] MEDS ORDERED: PREDNISONE20 MG PO (08:22)
--- NOTE | 2019-03-11 09:00 | NUR ---
Patient alert and oriented, answers questions appropriately. See assessment. Lungs with expiratory wheezes noted throughout all lobes. C/o SOA with exertion per is norm. O2 at 3.5L/NC per home use. No c/o at this time.
--- NOTE | 2019-03-11 12:37 | NUR ---
Patients arrives, enters room and immediately comes out to desk holding a can of diet coke that had been in the patients room. Patients demanding to know "who exactly gave him this diet coke. He is a cancer patient and cannot have diet soda, its in his chart". Relayed to patient that this nurse did not bring diet soda into room and it could have been anyone, or it could have came up on his meal tray. Patients continues to demand to know who brought it in the room and states "I am not taking him home until I know who gave him this diet coke". Inquired to if she brought patients clothes, yells "he has clothes here, I told the girl I talked to on the phone this morning this". then re-enters patient room. This nurse went into room approximately twenty minutes later to review discharge paperwork with patient and . states "I won't take him home until I know his labwork and xray results.". Informed patient WBC today was 14.3. states "Why are you lying to me. I need to know the exact number. Yesterday the WBC was in the thousands, today your lying to me and telling me its 14." Relayed to that WBC has never been in the thousands and is actually better than yesterday. continues to demand that she is being lied to. then requests copy of all labwork this admission starting from ED admission. informed she would have to request that from medical records. states "just give it to me now, I never have to request it." Reinforced to that she can stop in medical records for this. then states "I never signed paperwork for him to be admitted. If I did someone lied to me and snuck it in with other paperwork". Informed I could call admissions and request this information. states "I never signed paperwork, he is confused and can't sign his paperwork, I shouldn't have to pay for this stay". delivery driver/supervisor notified.
--- NOTE | 2019-03-11 14:29 | NUR ---
HA student met with patient to complete IM form. was also present. Student presented and explained the IM form to patient and , they verbalized understanding and patient signed. SW student provided copy to patient's . Patient is to discharge back home today (03/11) with . No further needs at this time.
[2019-03-11] MEDS ORDERED: LASIX 20MG TABL20 MG PO (14:53)
[2019-03-11] MEDS ORDERED: K-TAB10 PO (14:53)
--- NOTE | 2019-03-11 15:00 | NUR ---
Attempted to review discharge paperwork x4 with patient and , has refused every time, stating different complications ie: patient needs to eat, patient never got admission paperwork, not taking him home until labs reviewed. 1515: agrees to listen to discharge instructions. When discharge instructions were completed, patient was asked to sign paperwork. Patient agreed but grabs pen and states "We are not signing anything. I've signed all the paperwork we are going to sign. That kylee told me all the paperwork is signed." Explained to patient that the admissions staff isnt aware of discharge paperwork we need to have signed. again states "We are done signing papers, he said there are no more papers to sign." merchandise supervisor notified. merchandise supervisor visited with and she agreed to sign papers, witnessed by herself. Patient left via wheelchair to auto/home with at 1545.
== END 2019-03-11 15:45 | disposition home or self-care (01) | DRG 189 ==
LOC: COL.ER 12:28 → EDBEDREQSVC 16:09 → EDBEDREQ 16:09 → EDBEDREQTM 16:09 → SURG 16:13
PROVIDERS: Emergency Medicine; Nurse Practitioner Family; Physician Assistant; ADMIT Internal Medicine
DX: J96.21 Acute and chronic respiratory failure with hypoxia (principal); J44.1 Chronic obstructive pulmonary disease with (acute) exacerbation; I48.0 Paroxysmal atrial fibrillation; F03.90 Unspecified dementia, unspecified severity, without behavioral disturbance, psychotic disturbance, mood disturbance, and anxiety; Z85.110 Personal history of malignant carcinoid tumor of bronchus and lung; Z85.51 Personal history of malignant neoplasm of bladder; Z87.891 Personal history of nicotine dependence; N40.0 Benign prostatic hyperplasia without lower urinary tract symptoms; F41.8 Other specified anxiety disorders; R13.10 Dysphagia, unspecified; G25.0 Essential tremor
CPT/HCPCS: 99222-AI; 99232-AI; 99239; A4216; J0696; J1650; J1956; J2930; J3475; J7030; J7512

== ENCOUNTER 2019-04-16 14:49 | Inpatient (IN) | payer MEDICARE, OTHER ==
[~2019-04-16] VITALS: Ht 154.9 cm; Wt 67.3 kg
[~2019-04-16 14:49] MED LIST changes: +K-TAB10 PO; +KLOR-CON SPRIN10 MEQ PO
[2019-04-16 16:14] LABS: BASO % 0.2 % (0.0-2.0); EOS % 0.2 % (0-4.0); GRAN # 11.9 (1.4-6.5); GRAN % 89.6 % (42.2-75.2); HEMOGLOBIN 11.4 g/dl (13.5-18.0); LYMPH # 0.6 (1.2-3.4); LYMPH % 4.8 % (20.0-51.0); MEAN CELL VOLUME 91 fl (80.0-100.0); MEAN CORPUSCULAR HEMOGLOBIN 29 pg (27.0-31.0); MEAN CORPUSCULAR HGB CONC 32 g/dl (33.0-37.0); MEAN PLATELET VOLUME 11.2 fl (7.4-10.4); MONO # 0.6 (0.1-0.6); MONO % 4.4 % (1.7-9.3); PLATELET COUNT 249 K/mm3 (130-400); RED BLOOD COUNT 3.98 M/mm3 (4.20-5.60); REDCELL DISTRIBUTION WIDTH-CV 13.6 % (11.5-14.5)
[2019-04-16 16:16] LABS: HEMATOCRIT 36.2 % (42.0-52.0)
[2019-04-16 16:28] LABS: ALANINE AMINOTRANSFERASE 22 U/L (21-72); ALBUMIN 4.1 gm/dL (3.5-5.0); ALKALINE PHOSPHATASE 49 U/L (50-136); ANION GAP 9 mmol/L (7-16); AST,SGOT 18 U/L (15-37); BILIRUBIN,TOTAL 0.3 mg/dL (0.0-1.0); BLOOD UREA NITROGEN 13 mg/dL (9-20); C-REACTIVE PROTEIN 0.7 mg/dL (0.0-0.9); CARBON DIOXIDE 29 mmol/L (22-30); CHLORIDE 103 mmol/L (98-107); CREATININE, serum 0.82 (0.66-1.25); GLUCOSE 95 mg/dL (74-106); LIPASE 143 U/L (23-300); POTASSIUM 3.9 mmol/L (3.4-5.0); SODIUM 141 mmol/L (137-145); TOTAL PROTEIN 6.8 gm/dL (6.4-8.2)
[2019-04-16 16:36] LABS: TROPONIN-I < 0.012 ng/mL (0.000-0.035)
[2019-04-16 16:57] LABS: COLLECTION METHOD CLEAN CATCH
[2019-04-16 17:05] LABS: PH 6 (5-8); SQUAMOUS EPITHELIAL None Seen /hpf; URINE APPEARANCE Clear; URINE BACTERIA None Seen /hpf; URINE BILIRUBIN Negative (NEGATIVE); URINE BLOOD Negative (NEGATIVE); URINE COLOR Colorless; URINE GLUCOSE Negative (NEGATIVE); URINE KETONE Negative (NEGATIVE); URINE LEUKOCYTE ESTERASE Negative (NEGATIVE); URINE NITRATE Negative (NEGATIVE); URINE PROTEIN(semi-quant) Negative (NEGATIVE); URINE RBC None Seen /hpf; URINE UROBILINOGEN Negative (NEGATIVE)
[2019-04-16 17:24] LABS: ARTERIAL BLD GAS O2 SATURATION 95.7 % (92-100); ARTERIAL BLD GAS TCO2 CT 28.9; ARTERIAL BLOOD GAS BASE EXCESS 2.3 (-2-2); ARTERIAL BLOOD GAS HCO3 27.6 meq/L (22-26); ARTERIAL BLOOD GAS PCO2 45.4 mmHg (35-45); ARTERIAL BLOOD GAS PO2 83.4 mmHg (80-100)
[2019-04-16 19:06] VITALS: BP 123/65; PULSE 81; TEMP 97.8
[2019-04-16] MEDS ORDERED: NITRO-DUR0.1 MG/PAT TD (19:52)
--- NOTE | 2019-04-16 21:10 | NUR ---
PT ARRIVED FROM ER WITH BY SIDE. PT HAS TREMORS IN RIGHT ARM, ALSO HAS HEART MONITOR TO UPPER LEFT CHEST. ADVISED THAT IT IS NOT A PACEMAKER, ONLY A HEART MONITOR. HEART NURSE ORDERED IT BECAUSE OF HIS INCREASED CHEST PAIN THAT HE HAS BEEN HAVING. HEART MONITOR TO BE TAKEN OFF ON 04/19/19. WENT OVER MEDICATIONS WITH AND STATED THAT DOSAGE DID NOT CHANGE SINCE LAST TIME HERE AND DID NOT KNOW ALL OF THE DOSAGE ON MEDICATION. ALSO, SHE IS DPOA AND THAT WE HAVE IT ON FILE. PT GIVEN FOOD WHEN CAME UP AND ALSO BREATHING TX REQUESTED. CALL LIGHT WITHIN REACH. ADVISED THAT HE IS INDEPENDENT AND CAN DO EVERYTHING HIMSELF, BUT HE DOES HAVE TROUBLE SWALLOWING FOOD AND PILLS. ALSO, NO DIET PRODUCTS DUE TO HIS CANCER.
[2019-04-16 22:39] VITALS: BP 115/58; PULSE 83; TEMP 97.3
[2019-04-16 23:10] VITALS: BP 115/58; PULSE 83; TEMP 97.3
[2019-04-17] VITALS: BP 115/58; PULSE 83; TEMP 97.3
--- NOTE | 2019-04-17 01:12 | NUR ---
PT IN BED WITH HOB ELEVATED TO 45 DEGREE ANGLE AND IS SLEEPING/RESTING, WITH RESP EVEN AND UNLABORED AND NO S/S OF PAIN OR DISCOMFORT NOTED.
[2019-04-17 03:39] VITALS: BP 131/76; PULSE 80; TEMP 98.2
[2019-04-17] MEDS ORDERED: ABILIFY5 MG PO (03:50)
--- NOTE | 2019-04-17 05:16 | NUR ---
PT HAS BEEN AWAKE MOST OF THE NIGHT WATCHING TV. PT DENIES PAIN OR DISCOMFORT, USES URINAL AND HAS NOT GOTTEN UP. PT IS PLEASANT AND COOPERATIVE. PT HAS TREMORS IN BILATERAL UPPER EXTREMITIES. PT HAS NO NEEDS AT THIS TIME, CALL LIGHT WITHIN REACH.
[2019-04-17 06:35] LABS: BASO % 0.2 % (0.0-2.0); GRAN # 10.7 (1.4-6.5); GRAN % 89.6 % (42.2-75.2); HEMOGLOBIN 10.4 g/dl (13.5-18.0); LYMPH # 0.7 (1.2-3.4); LYMPH % 5.5 % (20.0-51.0); MEAN CELL VOLUME 91 fl (80.0-100.0); MEAN CORPUSCULAR HEMOGLOBIN 29 pg (27.0-31.0); MEAN CORPUSCULAR HGB CONC 32 g/dl (33.0-37.0); MEAN PLATELET VOLUME 11.2 fl (7.4-10.4); MONO # 0.5 (0.1-0.6); MONO % 3.9 % (1.7-9.3); PLATELET COUNT 247 K/mm3 (130-400); RED BLOOD COUNT 3.58 M/mm3 (4.20-5.60); REDCELL DISTRIBUTION WIDTH-CV 13.6 % (11.5-14.5)
[2019-04-17 06:38] LABS: HEMATOCRIT 32.5 % (42.0-52.0)
--- NOTE | 2019-04-17 06:38 | NUR ---
DR. GORDON CONTACTED IN REFERENCE TO CONSULT.
[2019-04-17 06:50] LABS: ANION GAP 10 mmol/L (7-16); BLOOD UREA NITROGEN 15 mg/dL (9-20); CALCIUM 9.3 mg/dL (8.4-10.2); CARBON DIOXIDE 26 mmol/L (22-30); CHLORIDE 105 mmol/L (98-107); CHOLESTEROL 201 mg/dL (120-200); CHOLESTEROL RISK RATIO 4.1; CREATININE, serum 0.88 (0.66-1.25); GLUCOSE 99 mg/dL (74-106); HDL CHOLESTEROL 48 mg/dL; LDL CHOLESTEROL 134 mg/dL; POTASSIUM 4.6 mmol/L (3.4-5.0); SODIUM 140 mmol/L (137-145); TRIGLYCERIDE 95 mg/dL
[2019-04-17 06:59] LABS: TROPONIN-I < 0.012 ng/mL (0.000-0.035)
[2019-04-17 08:08] VITALS: BP 119/93; PULSE 79; TEMP 97.9
--- NOTE | 2019-04-17 09:41 | NUR ---
Fall Risk precaution put into place. The patient has the bed alarm and call light in place. No othr needs at this time.
[2019-04-17 10:49] VITALS: BP 114/62; PULSE 88; TEMP 98.4
--- NOTE | 2019-04-17 12:21 | NUR ---
Plan unknown per . SW met with patient and in room. is Juan José. reports that they will wait to find out from the DR whether the patient will need additonal assistance beyond going home. Patients' reports that they had some homehealth care and patient uses can as needed, Bipap as needed, and O2 at home. Patient reports that he still drives but mainly. Patient idnicated that sarah is a new PCP Dr. Bill Magana. Patient indicated wanting to go home. SW will continue to follow for additonal discharge needs. No placement identified at this moment. Additonal home health serivces are currently declined.
--- NOTE | 2019-04-17 17:57 | NUR ---
No change throughout the shift. The call light is in place. The has been at the bedside all afternoon. The patient was assisted with a shower and a shave.
[2019-04-17 18:10] VITALS: BP 131/94; PULSE 82; TEMP 98.7
--- NOTE | 2019-04-17 20:20 | NUR ---
Shift assessment complete. Pt resting in bed, awake, a&o, cooperative c cares. Pt c/o continued chest pain since admit, states "I've told every that's come in here and noone seems to care". Pt rates pain 3/10 at rest, 8/10 c cough; pt has frequent, wet-sounding, non-productive cough. Will notify FUR NAILER professional poker player. Pt denies any other c/o at this time. Tele in place. O2 per NC. IV s complication. Pt denies further needs. Call light in reach, bed alarm on. Will monitor.
--- NOTE | 2019-04-17 21:20 | NUR ---
LOOSE NON PRODUCTIVE COUGH
[2019-04-17 23:27] VITALS: BP 115/58; PULSE 89; TEMP 98.4
--- NOTE | 2019-04-18 02:50 | NUR ---
PT AWAKE AND COUGHING LOOSE INEFFECTIVE COUGH RN AT BEDSIDE STATES SHE IS STOPPING FLUID, SVN GIVEN PT APPEARS TO BE MORE COMFORTABLE AND HAS COUGHED UP SMALL AMOUNT OF THICK WHITE SPUTUM. WILL CONTINUE TO MONITOR
[2019-04-18 03:55] VITALS: BP 118/64; PULSE 59; TEMP 98.1
--- NOTE | 2019-04-18 06:21 | NUR ---
Pt resting in bed, condition unchanged. Pt has rested well this shift c few needs. PRN pain medication et tessalon pearls admin x2 et significantly helped c cough et pain. IVF's d/c's r/t developing crackles in lung bases, pt denies increased SOB or other c/o. No needs at this time. Call light in reach, bed alarm on.
[2019-04-18 06:31] LABS: BASO % 0.3 % (0.0-2.0); EOS % 0.3 % (0-4.0); GRAN # 8.8 (1.4-6.5); GRAN % 74.1 % (42.2-75.2); LYMPH % 16.7 % (20.0-51.0); MEAN CELL VOLUME 91 fl (80.0-100.0); MEAN CORPUSCULAR HEMOGLOBIN 29 pg (27.0-31.0); MEAN CORPUSCULAR HGB CONC 32 g/dl (33.0-37.0); MEAN PLATELET VOLUME 11.1 fl (7.4-10.4); MONO # 0.9 (0.1-0.6); MONO % 7.9 % (1.7-9.3); PLATELET COUNT 225 K/mm3 (130-400); RED BLOOD COUNT 3.48 M/mm3 (4.20-5.60); REDCELL DISTRIBUTION WIDTH-CV 13.6 % (11.5-14.5)
[2019-04-18 06:35] LABS: HEMATOCRIT 31.6 % (42.0-52.0)
[2019-04-18 06:40] LABS: CALCIUM 8.7 mg/dL (8.4-10.2); CREATININE, serum 0.97 (0.66-1.25); POTASSIUM 3.6 mmol/L (3.4-5.0)
[2019-04-18 07:04] VITALS: BP 102/62; PULSE 55; TEMP 97.7
--- NOTE | 2019-04-18 08:30 | NUR ---
Initial assessment completed. Main is sleeping soundly this morning. No signs of pain or needs. The call light is in place.
[2019-04-18 10:44] VITALS: BP 130/75; PULSE 63; TEMP 97.9
[2019-04-18 15:35] VITALS: BP 90/50; PULSE 67; TEMP 97.9
--- NOTE | 2019-04-18 19:30 | NUR ---
Shift assessment complete. Pt resting in bed, awake, a&o, cooperative c cares. Pt states he feels "awefull" tonight, c/o continued weakness, SOB, et chest pain c cough rated "6/10"; pt provided c leandro prieto et [place] c HS meds, pt reports "they helped me a bunch last night and I wasn't coughing". Pt denies any other specific c/o. INT patent. Tele in place. O2 per NC. Pt denies further needs at this time. Call light in reach, will monitor.
[2019-04-18 19:51] VITALS: BP 105/52; PULSE 77; TEMP 97.9
--- NOTE | 2019-04-18 19:54 | NUR ---
No change throughout the shift. The call light is in place. Plan for lexiscan tomorrow, NPO at midnoc and no caffiene or chocolate. Report given to DARELL Germain to resume care.
--- NOTE | 2019-04-18 20:35 | NUR ---
PT HAS A LOOSE WET COUGH, APPEARS SLEEPY TODAY BUT AROUSABLE, ANSWERS APPROPRIATLY WILL CONTINUE TO MONITOR ENCOURAGE DEEP BREATHING WITH COUGH
[2019-04-18 23:39] VITALS: BP 102/54; PULSE 53; TEMP 98.4
[2019-04-19] VITALS (9 sets, daily range): BP systolic 98–127; BP diastolic 47–62; PULSE 55–88; TEMP 97.7–97.8
--- NOTE | 2019-04-19 06:39 | NUR ---
Pt resting in bed, condition unchanged. Pt rested well this shift c few needs. Cough decreased through the night, though he had a recent severe coughing spell. No reporting chest pain is "aweful again"; PRN [place] given per persistant request to "give me somethin". Continues to have very wet sounding cough. Continues to have good output. No further needs at this time. Call light in reach, bed alarm on.
--- NOTE | 2019-04-19 07:35 | NUR ---
Pt assessment complete. Pt is sitting up in bed upon entry, he is drowsy but arouses to voice. He is oriented x3. His breathing is even and unlabored on 4.5L O2 via NC. Pt reports pain has improved, he states "it's barely there". He denies increase in pain with deep breaths. No N/V. +BS. POC discussed with patient who verbalizes understanding, pt to remain NPO until Lexiscan is complete. He denies needs at this time. Call light within reach.
[2019-04-19 09:09] LABS: BASO # 0.1 (0.0-0.2); BASO % 0.3 % (0.0-2.0); EOS # 0.1 (0.0-0.7); EOS % 0.7 % (0-4.0); GRAN # 12.4 (1.4-6.5); GRAN % 81.4 % (42.2-75.2); HEMOGLOBIN 10.8 g/dl (13.5-18.0); LYMPH # 1.7 (1.2-3.4); MEAN CELL VOLUME 90 fl (80.0-100.0); MEAN CORPUSCULAR HEMOGLOBIN 29 pg (27.0-31.0); MEAN CORPUSCULAR HGB CONC 32 g/dl (33.0-37.0); MEAN PLATELET VOLUME 11.1 fl (7.4-10.4); MONO # 0.8 (0.1-0.6); MONO % 5.5 % (1.7-9.3); PLATELET COUNT 225 K/mm3 (130-400); RED BLOOD COUNT 3.78 M/mm3 (4.20-5.60); REDCELL DISTRIBUTION WIDTH-CV 13.8 % (11.5-14.5)
[2019-04-19 09:11] LABS: HEMATOCRIT 34.1 % (42.0-52.0)
--- NOTE | 2019-04-19 09:13 | NUR ---
Pt leaving for lexiscan at this time.
[2019-04-19 09:20] LABS: CALCIUM 8.7 mg/dL (8.4-10.2); CREATININE, serum 0.88 (0.66-1.25); POTASSIUM 3.7 mmol/L (3.4-5.0)
--- NOTE | 2019-04-19 11:00 | NUR ---
Pt back from [facility] at this time. Breakfast ordered for patient, he denies any needs or concerns. at bedside.
--- NOTE | 2019-04-19 11:21 | NUR ---
Initial visit; Patient and his daughter thanked Portfolio Consultant for offering comfort, encouragenent and prayer for both of them. Portfolio Consultant will follow up and keep Main in her prayers.
[2019-04-19] MEDS ORDERED: LIPITOR20 MG PO (14:36)
[2019-04-19] MEDS ORDERED: PROTONIX 40MG T40 MG PO (14:37)
--- NOTE | 2019-04-19 16:03 | NUR ---
Discharge paperwork and instructions reviewed with patient and his , all questions answered at this time. IV to RAC dc'd, catheter tip intact. Pt wheeled out of facility at this time.
== END 2019-04-19 16:36 | disposition home or self-care (01) | DRG 313 ==
LOC: COL.ER 14:49 → MEDICAL 16:56
PROVIDERS: Emergency Medicine; Nurse Practitioner Family; ADMIT Hospitalist
DX: R07.89 Other chest pain (principal); J96.11 Chronic respiratory failure with hypoxia; E87.2 Acidosis; Z85.118 Personal history of other malignant neoplasm of bronchus and lung; Z85.51 Personal history of malignant neoplasm of bladder; I48.0 Paroxysmal atrial fibrillation; F03.90 Unspecified dementia, unspecified severity, without behavioral disturbance, psychotic disturbance, mood disturbance, and anxiety; Z87.891 Personal history of nicotine dependence; M81.0 Age-related osteoporosis without current pathological fracture; G25.0 Essential tremor; N40.0 Benign prostatic hyperplasia without lower urinary tract symptoms; R13.10 Dysphagia, unspecified; J44.9 Chronic obstructive pulmonary disease, unspecified; D72.829 Elevated white blood cell count, unspecified; Z88.5 Allergy status to narcotic agent; Z91.048 Other nonmedicinal substance allergy status
CPT/HCPCS: 99232-AI; 99239; A9500; J1650; J1956; J2543; J2785; J2930; J7030; J7512

== ENCOUNTER 2019-05-18 22:24 | Emergency (ER) | payer MEDICARE, OTHER ==
[~2019-05-18] VITALS: Ht 152.4 cm; Wt 68.2 kg
[~2019-05-18 22:24] MED LIST changes: +ABILIFY5 MG PO; +LIPITOR20 MG PO; +PROTONIX 40MG T40 MG PO
[2019-05-18 22:31] VITALS: TEMP 98.3
[2019-05-18 22:48] LABS: BASO # 0.1 (0.0-0.2); BASO % 0.6 % (0.0-2.0); EOS # 0.1 (0.0-0.7); EOS % 0.9 % (0-4.0); GRAN # 10.1 (1.4-6.5); GRAN % 83.3 % (42.2-75.2); HEMATOCRIT 37.8 % (42.0-52.0); HEMOGLOBIN 11.7 g/dl (13.5-18.0); LYMPH # 1.3 (1.2-3.4); LYMPH % 10.7 % (20.0-51.0); MEAN CELL VOLUME 94 fl (80.0-100.0); MEAN CORPUSCULAR HEMOGLOBIN 29 pg (27.0-31.0); MEAN CORPUSCULAR HGB CONC 31 g/dl (33.0-37.0); MEAN PLATELET VOLUME 11.1 fl (7.4-10.4); MONO # 0.5 (0.1-0.6); PLATELET COUNT 251 K/mm3 (130-400); RED BLOOD COUNT 4.01 M/mm3 (4.20-5.60); REDCELL DISTRIBUTION WIDTH-CV 14.1 % (11.5-14.5)
[2019-05-18 22:52] LABS: INR 0.9 (0.8-3.0); PROTHROMBIN TIME 10.9 SECONDS (9.7-12.8)
[2019-05-18 22:59] LABS: ALANINE AMINOTRANSFERASE 27 U/L (21-72); ALBUMIN 4.1 gm/dL (3.5-5.0); ALKALINE PHOSPHATASE 55 U/L (50-136); ANION GAP 9 mmol/L (7-16); AST,SGOT 42 U/L (15-37); BILIRUBIN,TOTAL 0.2 mg/dL (0.0-1.0); BLOOD UREA NITROGEN 12 mg/dL (9-20); CALCIUM 9.1 mg/dL (8.4-10.2); CARBON DIOXIDE 27 mmol/L (22-30); CHLORIDE 109 mmol/L (98-107); CREATININE, serum 0.84 (0.66-1.25); GLUCOSE 101 mg/dL (74-106); POTASSIUM 5.6 mmol/L (3.4-5.0); SODIUM 145 mmol/L (137-145); TOTAL PROTEIN 6.5 gm/dL (6.4-8.2)
[2019-05-18 23:14] LABS: TROPONIN-I < 0.012 ng/mL (0.000-0.035)
[2019-05-18] MEDS ORDERED: PREDNISONE10 MG PO (23:56)
[2019-05-19 02:35] VITALS: BP 106/67; PULSE 95
== END 2019-05-19 03:20 | disposition home or self-care (01) ==
LOC: COL.ER 22:24
PROVIDERS: Emergency Medicine
DX: J44.1 Chronic obstructive pulmonary disease with (acute) exacerbation (principal); C34.90 Malignant neoplasm of unspecified part of unspecified bronchus or lung; C67.9 Malignant neoplasm of bladder, unspecified; I48.91 Unspecified atrial fibrillation; F03.90 Unspecified dementia, unspecified severity, without behavioral disturbance, psychotic disturbance, mood disturbance, and anxiety
CPT/HCPCS: J2930; J7030

== ENCOUNTER 2019-09-08 11:59 | Emergency (ER) | payer MEDICARE, OTHER ==
[~2019-09-08] VITALS: Ht 170.2 cm; Wt 68.2 kg
[~2019-09-08 11:59] MED LIST changes: +CALCIUM 600-D 61 TAB PO; +COUMADIN 2MG2 MG/TAB PO; +COUMADIN 5MG5 MG/TAB PO; -LEXAPRO 10MG10 MG PO; +LEXAPRO20 MG PO
[2019-09-08 12:33] LABS: BASO % 0.4 % (0.0-2.0); EOS # 0.2 (0.0-0.7); EOS % 1.9 % (0-4.0); HEMOGLOBIN 11.2 g/dl (13.5-18.0); LYMPH # 1.6 (1.2-3.4); LYMPH % 16.4 % (20.0-51.0); MEAN CELL VOLUME 96 fl (80.0-100.0); MEAN CORPUSCULAR HEMOGLOBIN 30 pg (27.0-31.0); MEAN CORPUSCULAR HGB CONC 31 g/dl (33.0-37.0); MEAN PLATELET VOLUME 11.1 fl (7.4-10.4); MONO # 0.7 (0.1-0.6); MONO % 7.7 % (1.7-9.3); PLATELET COUNT 230 K/mm3 (130-400); RED BLOOD COUNT 3.77 M/mm3 (4.20-5.60)
[2019-09-08 12:37] LABS: INR 1.1 (0.8-3.0); PROTHROMBIN TIME 12.9 SECONDS (9.7-12.8)
[2019-09-08 12:44] LABS: ALANINE AMINOTRANSFERASE 36 U/L (21-72); ALBUMIN 4.1 gm/dL (3.5-5.0); ALKALINE PHOSPHATASE 47 U/L (50-136); ANION GAP 9 mmol/L (7-16); AST,SGOT 33 U/L (15-37); BILIRUBIN,TOTAL 0.3 mg/dL (0.0-1.0); BLOOD UREA NITROGEN 17 mg/dL (9-20); CALCIUM 8.6 mg/dL (8.4-10.2); CARBON DIOXIDE 31 mmol/L (22-30); CHLORIDE 100 mmol/L (98-107); CREATININE, serum 0.87 (0.66-1.25); GLUCOSE 69 mg/dL (74-106); POTASSIUM 3.4 mmol/L (3.4-5.0); SODIUM 140 mmol/L (137-145); TOTAL PROTEIN 6.4 gm/dL (6.4-8.2)
[2019-09-08 13:00] LABS: TROPONIN-I < 0.012 ng/mL (0.000-0.035)
[2019-09-08 13:14] LABS: ARTERIAL BLD GAS O2 SATURATION 96.4 % (92-100); ARTERIAL BLD GAS TCO2 CT 28.4; ARTERIAL BLOOD GAS BASE EXCESS 1.5 (-2-2); ARTERIAL BLOOD GAS PCO2 46.2 mmHg (35-45); ARTERIAL BLOOD GAS PO2 87.3 mmHg (80-100); ARTERIAL BLOOD GAS pH 7.38 (7.35-7.45)
[2019-09-08] MEDS ORDERED: PREDNISONE10 MG PO (14:08)
[2019-09-08] MEDS ORDERED: IPRATROPIUM BROM3 M1 IH (16:24)
[2019-09-08 16:50] VITALS: BP 116/78; PULSE 80; TEMP 98.2
== END 2019-09-08 16:48 | disposition home or self-care (01) ==
LOC: COL.ER 11:59
PROVIDERS: Emergency Medicine
DX: J44.1 Chronic obstructive pulmonary disease with (acute) exacerbation (principal); I48.91 Unspecified atrial fibrillation; F03.90 Unspecified dementia, unspecified severity, without behavioral disturbance, psychotic disturbance, mood disturbance, and anxiety; Z79.01 Long term (current) use of anticoagulants
CPT/HCPCS: J7512

== ENCOUNTER 2019-09-24 20:16 | Emergency (ER) | payer MEDICARE, OTHER ==
[~2019-09-24] VITALS: Ht 157.5 cm; Wt 70.5 kg
[2019-09-24 20:25] VITALS: TEMP 98.8
[2019-09-24 20:58] LABS: HEMATOCRIT 39.2 % (42.0-52.0); HEMOGLOBIN 12.2 g/dl (13.5-18.0); MEAN CELL VOLUME 96 fl (80.0-100.0); MEAN CORPUSCULAR HEMOGLOBIN 30 pg (27.0-31.0); MEAN CORPUSCULAR HGB CONC 31 g/dl (33.0-37.0); PLATELET COUNT 225 K/mm3 (130-400); RED BLOOD COUNT 4.07 M/mm3 (4.20-5.60); REDCELL DISTRIBUTION WIDTH-CV 13.3 % (11.5-14.5)
[2019-09-24 21:21] LABS: ALBUMIN 4.4 gm/dL (3.5-5.0); BILIRUBIN,TOTAL 0.3 mg/dL (0.0-1.0); CALCIUM 9.3 mg/dL (8.4-10.2); CREATININE, serum 0.96 (0.66-1.25); POTASSIUM 5.3 mmol/L (3.4-5.0); TOTAL PROTEIN 6.6 gm/dL (6.4-8.2)
[2019-09-24 21:58] LABS: BASOPHIL 1 % (0-2); LYMPHOCYTE 4 % (20.0-51.0); NEUTROPHILS 94 % (42.0-75.2); PLATELET ESTIMATE NORMAL (NORMAL)
[2019-09-24] MEDS ORDERED: DOXYCYCLINE 10100 MG PO (22:47)
[2019-09-24 23:45] VITALS: BP 88/55; PULSE 93
== END 2019-09-24 23:45 | disposition home or self-care (01) ==
LOC: COL.ER 20:16
PROVIDERS: Emergency Medicine
DX: J44.1 Chronic obstructive pulmonary disease with (acute) exacerbation (principal); I48.91 Unspecified atrial fibrillation; I50.9 Heart failure, unspecified; F03.90 Unspecified dementia, unspecified severity, without behavioral disturbance, psychotic disturbance, mood disturbance, and anxiety; Z79.01 Long term (current) use of anticoagulants
CPT/HCPCS: J1885; J7512

== ENCOUNTER 2019-09-28 20:00 | Inpatient (IN) | payer MEDICARE, OTHER ==
[~2019-09-28] VITALS: Ht 154.9 cm; Wt 65.1 kg
[~2019-09-28 20:00] MED LIST changes: +ABILIFY30 MG PO; -ABILIFY5 MG PO
[2019-09-28 21:34] LABS: HEMOGLOBIN 10.9 g/dl (13.5-18.0); MEAN CELL VOLUME 96 fl (80.0-100.0); MEAN CORPUSCULAR HEMOGLOBIN 30 pg (27.0-31.0); MEAN CORPUSCULAR HGB CONC 32 g/dl (33.0-37.0); MEAN PLATELET VOLUME 11.8 fl (7.4-10.4); PLATELET COUNT 185 K/mm3 (130-400); RED BLOOD COUNT 3.61 M/mm3 (4.20-5.60); REDCELL DISTRIBUTION WIDTH-CV 13.1 % (11.5-14.5)
[2019-09-28 21:42] LABS: HEMATOCRIT 34.5 % (42.0-52.0)
[2019-09-28 21:47] LABS: ALBUMIN 3.7 gm/dL (3.5-5.0); BILIRUBIN,TOTAL 0.4 mg/dL (0.0-1.0); C-REACTIVE PROTEIN 2.7 mg/dL (0.0-0.9); CALCIUM 8.8 mg/dL (8.4-10.2); CREATININE, serum 1.16 (0.66-1.25); POTASSIUM 4.2 mmol/L (3.4-5.0); TOTAL PROTEIN 5.8 gm/dL (6.4-8.2)
[2019-09-28 21:59] LABS: TROPONIN-I 0.066 ng/mL (0.000-0.035)
[2019-09-28 22:06] LABS: INR 7.2 (0.8-3.0); PROTHROMBIN TIME 89.8 SECONDS (9.7-12.8)
[2019-09-28 22:21] LABS: BAND 3 % (0-10); LYMPHOCYTE 4 % (20.0-51.0); NEUTROPHILS 91 % (42.0-75.2)
[2019-09-28 22:22] LABS: PLATELET ESTIMATE NORMAL (NORMAL)
--- NOTE | 2019-09-28 23:42 | NUR ---
Report called over by DARELL Roach in the ED. Patient will be brought to the unit soon.
[2019-09-29] VITALS (7 sets, daily range): BP systolic 94–135; BP diastolic 56–76; PULSE 61–93; TEMP 97.7–98.9
--- NOTE | 2019-09-29 00:03 | NUR ---
Patient arrives at this time via ED cart. Patient arrives with all belongings to include cane, clothing, and air tank and tubing. Patient moves self to unit bed by slide. Attached patient to unit monitoring equipment and assessment performed. Lungs are coarse in all porter with diminished bases. He has come coarse crackles tracheally, but has not coughed anything up. HR and rhythm are regular with normal S1 and S2. Bowel sounds active x4. Patient is alert and partially oriented. He is following commands. Peripheral pulses are palpable. No complaints of pain. Does complain of some SOA, but states its ok right now. No edema noted. Oriented patient and to unit and room. Demonstrated the call light for patient and he returns demonstration correctly. Provided with urinal. Patient has no further needs at this time. Will continue to monitor. Call light within reach. ALBERTO Gardiner notified of arrival.
[2019-09-29 03:47] LABS: ARTERIAL BLD GAS O2 SATURATION 96.4 % (92-100); ARTERIAL BLOOD GAS BASE EXCESS -4.8 (-2-2); ARTERIAL BLOOD GAS HCO3 19.9 meq/L (22-26); ARTERIAL BLOOD GAS PCO2 35.3 mmHg (35-45); ARTERIAL BLOOD GAS PO2 96.7 mmHg (80-100); ARTERIAL BLOOD GAS pH 7.37 (7.35-7.45)
--- NOTE | 2019-09-29 04:00 | NUR ---
Patient resting in bed, sleeps between disturbances. Has complaints of mild pain in his back. No complaints of SOA. Vitals obtained and remain stable. Patient has no further needs at this time. Will continue to monitor. Call light within reach.
[2019-09-29] MEDS ORDERED: [UNRECOGNIZED DRUG - REMARK] (04:56)
[2019-09-29] MEDS ORDERED: COUMADIN 5MG5 MG/TAB PO (05:04)
[2019-09-29] MEDS ORDERED: COUMADIN 2MG2 MG/TAB PO (05:04)
[2019-09-29 05:59] LABS: MEAN CELL VOLUME 96 fl (80.0-100.0); MEAN CORPUSCULAR HEMOGLOBIN 30 pg (27.0-31.0); MEAN CORPUSCULAR HGB CONC 31 g/dl (33.0-37.0); MEAN PLATELET VOLUME 11.9 fl (7.4-10.4); PLATELET COUNT 176 K/mm3 (130-400); RED BLOOD COUNT 3.34 M/mm3 (4.20-5.60); REDCELL DISTRIBUTION WIDTH-CV 13.2 % (11.5-14.5)
[2019-09-29 06:01] LABS: ALBUMIN 3.3 gm/dL (3.5-5.0); BILIRUBIN,TOTAL 0.4 mg/dL (0.0-1.0); CALCIUM 7.8 mg/dL (8.4-10.2); CREATININE, serum 0.87 (0.66-1.25); POTASSIUM 4.1 mmol/L (3.4-5.0); TOTAL PROTEIN 5.4 gm/dL (6.4-8.2)
[2019-09-29 06:28] LABS: TROPONIN-I 6 HR POST INITIAL 0.079 ng/mL (0.000-0.034)
--- NOTE | 2019-09-29 06:31 | NUR ---
Vancomycin Initial Dosing Pharmacy Note Ordering provider: Sunday ELDRIDGE Frisco R, DO Indication/duration: EMPIRIC: POSSIBLE PNA LABS: WBC 13.9, SCr 1.1, CrCl 49 Recommendation: VANCOMYCIN 17 MG/KG Loading dose: 1.5 grams (GIVEN IN ED) Maintenance dose: 1 gram every 24 hours Trough goal: 15-20 ug/mL
[2019-09-29 06:36] LABS: INR 5.3 (0.8-3.0); PROTHROMBIN TIME 64.6 SECONDS (9.7-12.8)
[2019-09-29 07:28] LABS: BAND 5 % (0-10); LYMPHOCYTE 2 % (20.0-51.0); NEUTROPHILS 93 % (42.0-75.2); PLATELET ESTIMATE NORMAL (NORMAL)
--- NOTE | 2019-09-29 07:30 | NUR ---
Bedside report received from DARELL Hess. IV reviews and care assumed at this time.
--- NOTE | 2019-09-29 07:38 | NUR ---
Bedside report given to DARELL Garcia and DARELL Casas. Transfer of care at this time.
--- NOTE | 2019-09-29 10:33 | NUR ---
Initial visit; Patient and his daughter thanked Analytics Specialist for looking in on him and offering prayer and God's blessings.
--- NOTE | 2019-09-29 10:59 | NUR ---
FUEL CELL TEST ENGINEER student met with the patient and the patient's /DPOA-HC to discuss a discharge plan. The patient lives in [place] with his . The patient reports he uses a cane for occasional balance and reports independence with ADLs. The patient's PCP is Dr. Diaz and patient receives medications from [facility] with no difficulties. The patient has advanced directives in the EMR. business services vice president will continue to follow to ensure a safe discharge.
--- NOTE | 2019-09-29 13:30 | NUR ---
Report called to DARELL Garrett at 1240. Patient transferred to new unit via wheelchair with oxygen at 1320. accompanied and all belongings carried with patient to new room. Patient tolerated well.
--- NOTE | 2019-09-29 18:21 | NUR ---
Pt has been resting in the room since arriving from the ICU this afternoon, no C/O pain, Pt ambulating in the room without issue, VS have been stable.
--- NOTE | 2019-09-29 20:25 | NUR ---
Sitting on edge of bed. Short of air at rest and worsens with activity. Able to hold conversation with little difficulty. IV site without redness/drainage/swelling. Explains that he is urinating without difficulty. Has back discomfort, this is a chronic issue. Patient says that he is not coughing very much mucus up at this time. Says that he had pneumonia earlier this season and this time it has taken a lot out of him. Patient denies further needs at this time.
--- NOTE | 2019-09-29 23:06 | NUR ---
Sitting on side of bed with eyes open. Denies pain or discomfort. Explains that he feels like he should get a breathing treatment. Explained that we would notify respiratory and have them come assess and administer a breathing treatment. Respiratory informed. Patient denies further needs at this time.
--- NOTE | 2019-09-30 00:03 | NUR ---
Sitting on edge of bed. Discussed with the patient the antibiotics he is on and started the Vancocin and explained that once it was completed we would need to hang the Zosyn. Patient denies any discomforts or needs at this time.
--- NOTE | 2019-09-30 03:06 | NUR ---
Lying in bed in supine position with eyes closed. Respirations even and unlabored. No signs or symptoms of discomfort noted.
[2019-09-30 03:56] VITALS: BP 130/70; PULSE 78
--- NOTE | 2019-09-30 04:27 | NUR ---
Lying supine in bed with eyes closed. Respirations even and unlabored. No signs or symptoms of discomfort noted.
--- NOTE | 2019-09-30 05:46 | NUR ---
Lying supine in bed with eyes closed. Respirations even and unlabored. Oxygen remains in place at 4L/NC. No signs or symptoms of discomfort noted.
[2019-09-30 06:40] LABS: BASO % 0.2 % (0.0-2.0); EOS % 0.3 % (0-4.0); GRAN # 10.3 (1.4-6.5); GRAN % 83.6 % (42.2-75.2); LYMPH # 1.1 (1.2-3.4); LYMPH % 8.5 % (20.0-51.0); MEAN CELL VOLUME 95 fl (80.0-100.0); MEAN CORPUSCULAR HGB CONC 32 g/dl (33.0-37.0); MEAN PLATELET VOLUME 11.7 fl (7.4-10.4); MONO # 0.9 (0.1-0.6); MONO % 6.9 % (1.7-9.3); PLATELET COUNT 168 K/mm3 (130-400); RED BLOOD COUNT 3.06 M/mm3 (4.20-5.60)
[2019-09-30 06:51] LABS: HEMATOCRIT 29.1 % (42.0-52.0); HEMOGLOBIN 9.2 g/dl (13.5-18.0); MEAN CORPUSCULAR HEMOGLOBIN 30 pg (27.0-31.0)
[2019-09-30 06:53] LABS: CALCIUM 8.1 mg/dL (8.4-10.2); CREATININE, serum 1.06 (0.66-1.25); POTASSIUM 3.5 mmol/L (3.4-5.0)
[2019-09-30 07:07] LABS: TROPONIN-I 0.038 ng/mL (0.000-0.035)
[2019-09-30 08:10] VITALS: BP 120/63; PULSE 70; TEMP 97.8
[2019-09-30 08:30] LABS: INR 1.4 (0.8-3.0); PROTHROMBIN TIME 16.1 SECONDS (9.7-12.8)
--- NOTE | 2019-09-30 10:46 | NUR ---
Pt awake and alert, talkative, no C/O pain at this time, shift assessments complete, left Pt call light in reach, bed in lowest position.
[2019-09-30] MEDS ORDERED: PREDNISONE10 MG PO (11:10)
[2019-09-30] MEDS ORDERED: LEVAQUIN 750MG750 M1 PO (11:19)
[2019-09-30] MEDS ORDERED: CLEOCIN HCL300 MG PO (11:19)
[2019-09-30 11:38] VITALS: BP 116/66; PULSE 88; TEMP 97.7
--- NOTE | 2019-09-30 12:40 | NUR ---
HA contacted the patient's , Suzanna Newby, to review discharge plan and to discuss PT's recommendation of home health. The patient's reports that they are not interested in home health. She states that they would prefer outpatient PT, but are unsure if they want to start it right away. She states that they would be interested in a script to set it up themselves, if they decide to pursue it. HA informed Rosibel, Nurse Practitioner. The patient is to discharge back home with today, 09/30. No additional needs at this time.
--- NOTE | 2019-09-30 15:08 | NUR ---
Pt discharged to home, answered all questions, escorted Pt to entrance, left with spouse via private auto.
== END 2019-09-30 14:50 | disposition home or self-care (01) | DRG 871 ==
LOC: COL.ER 20:00 → ICU 23:06 → MEDICAL 09-29 13:32
PROVIDERS: Emergency Medicine; Nurse Practitioner Family; Physician Assistant
DX: A41.9 Sepsis, unspecified organism (principal); J18.1 Lobar pneumonia, unspecified organism; J96.21 Acute and chronic respiratory failure with hypoxia; I21.A1 Myocardial infarction type 2; J44.0 Chronic obstructive pulmonary disease with (acute) lower respiratory infection; J44.1 Chronic obstructive pulmonary disease with (acute) exacerbation; D68.9 Coagulation defect, unspecified; N17.9 Acute kidney failure, unspecified; R65.20 Severe sepsis without septic shock; I48.0 Paroxysmal atrial fibrillation; F03.90 Unspecified dementia, unspecified severity, without behavioral disturbance, psychotic disturbance, mood disturbance, and anxiety; N40.0 Benign prostatic hyperplasia without lower urinary tract symptoms; F32.9 Major depressive disorder, single episode, unspecified; F41.9 Anxiety disorder, unspecified; G25.2 Other specified forms of tremor; I45.81 Long QT syndrome; R13.10 Dysphagia, unspecified; G25.0 Essential tremor; M81.0 Age-related osteoporosis without current pathological fracture; Z85.118 Personal history of other malignant neoplasm of bronchus and lung; Z85.51 Personal history of malignant neoplasm of bladder; Z87.891 Personal history of nicotine dependence; Z90.89 Acquired absence of other organs; Z79.01 Long term (current) use of anticoagulants
CPT/HCPCS: 99222-AI; 99239; A4216; J0692; J2543; J3370; J7030; J7050; J7512

== ENCOUNTER 2019-11-18 14:38 | Outpatient (CLI) | payer MEDICARE, OTHER ==
[~2019-11-18] VITALS: Ht 154.9 cm; Wt 56.2 kg
[~2019-11-18 14:38] MED LIST changes: -ABILIFY30 MG PO; +ABILIFY5 MG PO; +CLEOCIN HCL300 MG PO; +[UNRECOGNIZED DRUG - REMARK]
[2019-11-18] MEDS ORDERED: LIPITOR20 MG PO (15:09)
[2019-11-18] MEDS ORDERED: TOBRADEX EYE DRO5 ML OS (15:16)
[2019-11-18 15:17] VITALS: BP 99/51; PULSE 74; TEMP 97.7
[2019-11-18] MEDS ORDERED: VENTOLIN0.09 MG IH (15:17)
[2019-11-18 15:35] VITALS: BP 102/52; PULSE 69
== END 2019-11-18 17:19 | disposition home or self-care (01) ==
LOC: EUO 14:38
DX: M81.0 Age-related osteoporosis without current pathological fracture (principal)
CPT/HCPCS: J3489

== ENCOUNTER 2020-07-30 20:53 | Emergency (ER) | payer MEDICARE, OTHER ==
[~2020-07-30] VITALS: Ht 152.4 cm; Wt 54.5 kg
[~2020-07-30 20:53] MED LIST changes: +TOBRADEX EYE DRO5 ML OS
[2020-07-30 21:08] VITALS: TEMP 98.2
[2020-07-30 23:31] VITALS: BP 102/69; PULSE 94
== END 2020-07-30 23:53 | disposition home or self-care (01) ==
LOC: COL.ER 20:53
DX: S42.001A Fracture of unspecified part of right clavicle, initial encounter for closed fracture (principal); S29.9XXA Unspecified injury of thorax, initial encounter; S41.101A Unspecified open wound of right upper arm, initial encounter; W18.30XA Fall on same level, unspecified, initial encounter; Y92.89 Other specified places as the place of occurrence of the external cause; J44.9 Chronic obstructive pulmonary disease, unspecified; Z79.01 Long term (current) use of anticoagulants

== ENCOUNTER → 2020-09-25 | Outpatient (CLI) | payer MEDICARE, OTHER | LOC: COL.RAD 08:00 | DX: R05 Cough (principal); Z91.89 Other specified personal risk factors, not elsewhere classified ==

== ENCOUNTER 2020-11-22 13:00 | Outpatient (RCR) | payer MEDICARE, OTHER | END 2020-11-26 | disposition home or self-care (01) | LOC: WSST | DX: R13.12 Dysphagia, oropharyngeal phase (principal) ==

== ENCOUNTER → 2020-11-29 | Outpatient (CLI) | payer MEDICARE, OTHER | LOC: COL.RAD 15:00 | DX: K40.90 Unilateral inguinal hernia, without obstruction or gangrene, not specified as recurrent (principal); R13.12 Dysphagia, oropharyngeal phase ==

== ENCOUNTER 2020-12-12 17:10 | Observation (INO) | payer MEDICARE, OTHER ==
[~2020-12-12] VITALS: Ht 165.1 cm; Wt 54.3 kg
[2020-12-12 17:25] LABS: BASO # 0.1 (0.0-0.2); BASO % 0.5 % (0.0-2.0); EOS # 0.2 (0.0-0.7); EOS % 1.5 % (0-4.0); GRAN # 9.8 (1.4-6.5); GRAN % 81.3 % (42.2-75.2); HEMOGLOBIN 11.3 g/dl (13.5-18.0); LYMPH % 8.3 % (20.0-51.0); MEAN CELL VOLUME 96 fl (80.0-100.0); MEAN CORPUSCULAR HEMOGLOBIN 29 pg (27.0-31.0); MEAN CORPUSCULAR HGB CONC 31 g/dl (33.0-37.0); MEAN PLATELET VOLUME 11.3 fl (7.4-10.4); PLATELET COUNT 207 K/mm3 (130-400); RED BLOOD COUNT 3.85 M/mm3 (4.20-5.60); REDCELL DISTRIBUTION WIDTH-CV 13.6 % (11.5-14.5)
[2020-12-12 17:28] LABS: HEMATOCRIT 36.9 % (42.0-52.0)
[2020-12-12 17:29] LABS: ARTERIAL BLD GAS O2 SATURATION 98.7 % (92-100); ARTERIAL BLD GAS TCO2 CT 33.1; ARTERIAL BLOOD GAS BASE EXCESS 4.6 (-2-2); ARTERIAL BLOOD GAS HCO3 31.4 meq/L (22-26); ARTERIAL BLOOD GAS PCO2 57.2 mmHg (35-45); ARTERIAL BLOOD GAS pH 7.36 (7.35-7.45)
[2020-12-12 17:30] LABS: ARTERIAL BLOOD GAS PO2 143.8 mmHg (80-100)
[2020-12-12 17:30] LABS: PROTHROMBIN TIME 11.2 SECONDS (9.7-12.8)
[2020-12-12 17:39] LABS: ALANINE AMINOTRANSFERASE 32 U/L (4-49); ALBUMIN 3.3 gm/dL (3.5-5.0); ALKALINE PHOSPHATASE 73 U/L (50-136); ANION GAP 1 mmol/L (7-16); AST,SGOT 30 U/L (15-37); BILIRUBIN,TOTAL 0.3 mg/dL (0.0-1.0); BLOOD UREA NITROGEN 14 mg/dL (9-20); CALCIUM 8.3 mg/dL (8.4-10.2); CARBON DIOXIDE 38 mmol/L (22-30); CHLORIDE 105 mmol/L (98-107); CREATININE, serum 0.59 (0.66-1.25); GLUCOSE 95 mg/dL (74-106); POTASSIUM 4.3 mmol/L (3.4-5.0); SODIUM 144 mmol/L (137-145); TOTAL PROTEIN 5.7 gm/dL (6.4-8.2)
[2020-12-12 17:47] LABS: C-REACTIVE PROTEIN < 0.5 mg/dL (0.0-0.9)
[2020-12-12 19:36] LABS: COLLECTION METHOD CLEAN CATCH
[2020-12-12 19:42] LABS: MUCOUS Present /lpf; PH 6 (5-8); SQUAMOUS EPITHELIAL None Seen /hpf; URINE APPEARANCE Clear; URINE BACTERIA None Seen /hpf; URINE BILIRUBIN Negative (NEGATIVE); URINE BLOOD Negative (NEGATIVE); URINE COLOR Straw; URINE GLUCOSE Negative (NEGATIVE); URINE KETONE Negative (NEGATIVE); URINE LEUKOCYTE ESTERASE Negative (NEGATIVE); URINE NITRATE Negative (NEGATIVE); URINE PROTEIN(semi-quant) Negative (NEGATIVE); URINE RBC 0-2 /hpf; URINE UROBILINOGEN Negative (NEGATIVE)
[2020-12-12 20:00] VITALS: BP 111/78; PULSE 70; TEMP 98.2
[2020-12-12 22:01] VITALS: BP 118/62; PULSE 79; TEMP 99
[2020-12-12 23:33] VITALS: BP 110/55; PULSE 65; TEMP 98
--- NOTE | 2020-12-13 02:42 | NUR ---
Patient admitted to medical floor room 316 via wheelchair from ER at 1999. Patient alert and oriented to person only. Patient able to tell his name, date of and his 's name. Patient confused about place. Oriented patient to the room. Patient got very upset of being in the hospital and tried to get up and walk out of the room. Unable to calm patient down. Called TRAY Nichols and Magdalena FELIZ came up to the room and assessed patient. Received new order from TRAY Nichols to give Haldol PRN. Haldol administered at 22:36 pm. Patient slept for 1 hour and woke up. Patient appears more calm at this time. Patient has skin tear to the left forearm. Applied foam dressing to skin tear area. Tremors noted to both hands. Patient gets up frequently to go to bathroom to void. 1 person assit needed due to unsteady gait. Offered urinal but patient forgetful of using it. Patient is on oxygen 2L via NC. SPO2 96% On 2L via NC. Chase sounds coarse. Troponin level was elevated. Updted with TRAY Nichols. Scheduled meds given per JAN. Call light within reach. Will continue to monitor.
[2020-12-13 03:26] VITALS: BP 117/73; PULSE 70; TEMP 97.6
[2020-12-13 04:40] VITALS: BP 117/73; PULSE 70; TEMP 97.6
--- NOTE | 2020-12-13 05:13 | NUR ---
Patient alert and partially oriented throughout the night. Assisted patient to use urinal and also void in the bathroom frequently. 1 person minimal assist needed for transfer and ambulating. Patient ambulating with unsteady gait. Fall precaution maintained. Patient resting in bed comfortably at this time. No acute distress noted.
--- NOTE | 2020-12-13 06:05 | NUR ---
Cardiology consult made to Dr. Jesu Bender at 0600 am this morning.
[2020-12-13 08:05] VITALS: BP 117/55; PULSE 85; TEMP 97.9
[2020-12-13 08:07] LABS: CREATININE, serum 0.64 (0.66-1.25); POTASSIUM 3.9 mmol/L (3.4-5.0)
--- NOTE | 2020-12-13 09:37 | NUR ---
SW contacted the patient's , Suzanna Newby (ph#[phone]), to discuss discharge plan. The patient lives in [place] with his . Suzanna Newby reports that the patient is independent with ADLs and has a cane, walker, and home oxygen from [employer]. She states that she does assist him with washing his back. He receives outpatient [facility]. The patient's PCP is Dr. Bryan Magana and he receives his medications from [facility]. Suzanna Newby reports that she would like to switch to the pharmacy [facility] and would need written scripts for any new meds that he gets prescribred upon discharge. The patient's DPOA-HC is in EMR and it designates his . Suzanna Newby reports that plan is for the patient to return back home with her upon discharge. SW discussed home health services and their benefits. Suzanna Newby reports that if it is being recommended, then she would consider it. SW to continue to follow.
--- NOTE | 2020-12-13 09:51 | NUR ---
Assessment complete. Patient attempting to get out of bed independently and triggered bed alarm, requesting to go to the restroom. Patient was assisted to the restroom via 1 assist, was very unsteady and wobbly. He is plesant at this time. Denies pain or discomfort at this time but does state he doesnt think he is breathing very well. Patient lung sounds are very coarse and very crackley at this time. I did encourage him to cough. Patient took meds well, crushed with applesauce. He is now back in bed resting at thsi time. Fresh brief applied after voiding. Will continue to monitor. Call light is in reach. Bed alarm is set.
--- NOTE | 2020-12-13 10:36 | NUR ---
Patient has been up to the bathroom multiple times already this morning. Assissted to bathroom via 1 assist. At this time patient also states that he feels like he cannot breathe. RT was calld for a PRN breathing treatment and I encouraged patient to breathe in through his nose and out through his mouth. Cjhecked O2 sat, patient was at 94% at his time of distress. Will continue to monitor. Bed alarm set.
[2020-12-13 12:37] VITALS: BP 103/61; PULSE 84; TEMP 97.7
--- NOTE | 2020-12-13 12:48 | NUR ---
Chaplain gordon for patient while standing outside the door.
[2020-12-13 15:51] VITALS: BP 116/62; PULSE 52; TEMP 98.5
--- NOTE | 2020-12-13 16:52 | NUR ---
Patient continued to get up about every 30 mins to use the restroom. He is able to ambulate relatively well but attempts to get up on his own impulsively everytime. Patient did report neck pain at this time, patient was repositioned and a warm blanlket was provided to the back of his neck, he stated this helped. Continuing to monitor. Bed alarm is set. Watching patient closely.
[2020-12-13 20:00] VITALS: BP 106/50; PULSE 44; TEMP 98.4
--- NOTE | 2020-12-13 20:00 | NUR ---
Resting in bed. Assessment complete. Patient has dyspnea and labor breathing that increases with trips to the restroom. Patient lung field coarse with diminished bases. Heart sounds normal. Bowels active x4. Pulses present throughout. No edema noted. INT right AC without complications. Skin tear to left forearm. Buttocks has erythema present but blanchable. denies pain. Denies needs at this time. Call light in reach.
--- NOTE | 2020-12-13 20:45 | NUR ---
Patient reported difficulty breathing. Patient wheezy and coarse with increased WOB. Respiratory contacted for breathing treatment. Respiratory voiced concerns with air hunger, suggested morphine. Patient 96% on 3 liters. Updated TRAY Hawkins. No orders at this time. Continue to monitor patient.
--- NOTE | 2020-12-13 21:19 | NUR ---
Patient called for update. Provided with update. Several questions answered. Patient would like consult for pulm placed. Will pass on to next shift.
[2020-12-14] VITALS (7 sets, daily range): BP systolic 100–138; BP diastolic 40–87; PULSE 50–97; TEMP 97.7–98.8
--- NOTE | 2020-12-14 00:01 | NUR ---
Resting in bed. Denies needs. Call light in reach.
--- NOTE | 2020-12-14 05:48 | NUR ---
Patient had shortness of breath and increased work of breathing periodically throughout night. Patient had PRN breathing treatments with episodes. Hospitalist was updated. No new orders given. Patient resting in bed this AM. Call light within reach.
[2020-12-14 06:27] LABS: BASO % 0.3 % (0.0-2.0); EOS # 0.1 (0.0-0.7); EOS % 0.4 % (0-4.0); GRAN # 12.5 (1.4-6.5); GRAN % 82.1 % (42.2-75.2); LYMPH # 1.3 (1.2-3.4); LYMPH % 8.6 % (20.0-51.0); MEAN CELL VOLUME 93 fl (80.0-100.0); MEAN CORPUSCULAR HEMOGLOBIN 30 pg (27.0-31.0); MEAN CORPUSCULAR HGB CONC 32 g/dl (33.0-37.0); MEAN PLATELET VOLUME 12.5 fl (7.4-10.4); MONO # 1.2 (0.1-0.6); PLATELET COUNT 193 K/mm3 (130-400); RED BLOOD COUNT 3.72 M/mm3 (4.20-5.60); REDCELL DISTRIBUTION WIDTH-CV 13.6 % (11.5-14.5)
[2020-12-14 06:37] LABS: HEMATOCRIT 34.5 % (42.0-52.0)
[2020-12-14 06:43] LABS: BLOOD UREA NITROGEN 30 mg/dL (9-20); CALCIUM 8.7 mg/dL (8.4-10.2); CARBON DIOXIDE > 40 mmol/L (22-30); CHLORIDE 90 mmol/L (98-107); CREATININE, serum 0.81 (0.66-1.25); GLUCOSE 104 mg/dL (74-106); POTASSIUM 3.4 mmol/L (3.4-5.0); SODIUM 135 mmol/L (137-145)
[2020-12-14 06:52] LABS: ANION GAP 7 mmol/L (7-16)
--- NOTE | 2020-12-14 06:56 | NUR ---
Report given to DARELL Farooq
--- NOTE | 2020-12-14 09:12 | NUR ---
Assessment complete. Patient sitting up in bed. He has been to restroom already this morning, ambulated well via 1 assist. He is alert and states that he thinks he feels a little bit better this morning. His lung sounds have improved. Wheezing and crackles are less audible but still present with auscultation. No complaints of pain or discomfort. He ate breakfast very well with my assist with no swalling or coughing issues. Will continue to monitor. Bed alarm is set.
--- NOTE | 2020-12-14 17:45 | NUR ---
PAtient has been up impulsively multiple times through out the day, about 2-3 times an hour. He voided each time. He has had only one episode of feeling SOB and this was early this morning. Pt was mostly anxious and wanting to leave today when getting up if he wasnt attempting to get to the bathroom. He has remained plesant. Dr. Snyder stated he would be speaking with his to provide an update and I informed Dr. Bender of his wifes desire for an update from him as well. Patient ate very well today, with assist. No other needs. Will continue to monitor.
[2020-12-15 04:31] VITALS: BP 123/89; PULSE 54; TEMP 98.5
[2020-12-15 06:30] LABS: BASO % 0.2 % (0.0-2.0); EOS # 0.2 (0.0-0.7); EOS % 1.2 % (0-4.0); GRAN # 10.6 (1.4-6.5); GRAN % 77.1 % (42.2-75.2); LYMPH # 1.4 (1.2-3.4); LYMPH % 10.3 % (20.0-51.0); MEAN CELL VOLUME 95 fl (80.0-100.0); MEAN CORPUSCULAR HEMOGLOBIN 30 pg (27.0-31.0); MEAN CORPUSCULAR HGB CONC 32 g/dl (33.0-37.0); MEAN PLATELET VOLUME 12.8 fl (7.4-10.4); MONO # 1.5 (0.1-0.6); MONO % 10.8 % (1.7-9.3); PLATELET COUNT 176 K/mm3 (130-400); RED BLOOD COUNT 3.67 M/mm3 (4.20-5.60); REDCELL DISTRIBUTION WIDTH-CV 13.6 % (11.5-14.5)
[2020-12-15 06:40] LABS: HEMATOCRIT 34.8 % (42.0-52.0)
[2020-12-15 06:47] LABS: CALCIUM 8.8 mg/dL (8.4-10.2); CREATININE, serum 0.69 (0.66-1.25); POTASSIUM 3.8 mmol/L (3.4-5.0)
[2020-12-15 07:44] VITALS: BP 129/73; PULSE 98; TEMP 97.9
--- NOTE | 2020-12-15 08:00 | NUR ---
PT SLEEPING UPON ENTRY, WOKE UP PT, PT [place], PT VITALS REVIEWED, MEDICATIONS GIVEN WITH APPLESAUCE, NO CHOKING WITH ADMINISTRATION. ASSESSMENT PERFORMED, FED PT BREAKFAST, ASSISTED PT IN DRINKING COFFEE. PT ATE 70%, STARTED COUGHING MORE TOWARDS THE END SO STOPPED WITH BREAKFAST. PT SITTING UP WATCHING TV AT THIS TIME.
--- NOTE | 2020-12-15 08:23 | NUR ---
PATIENT AMBULATED WITH 1 ASSIST TO THE BATHROOM TO VOID. PATIENT WAS SETTING OFF BED ALARM. GAIT VERY UNSTEADY AND NOTED TREMMORS. PATIENT NOW BACK IN BED RESTING, BED ALARM ON AND CALL LIGHT IN REACH.
[2020-12-15] MEDS ORDERED: PLAVIX 75MG TAB75 MG PO (10:05)
[2020-12-15] MEDS ORDERED: ASPIRIN E.C. 8181 MG PO (10:06)
[2020-12-15 12:02] VITALS: BP 126/61; PULSE 67; TEMP 98.1
--- NOTE | 2020-12-15 14:32 | NUR ---
HA contacted patient's Suzanna Newby to discuss the option of home health services. Patient's does not feel that they need home health at this time. Patient's states that they see providers at [facility] for physical therapy already. HA transferred Suzanna Newby to sol's RN to better faciliate answering nursing questions. There are no other needs at this time.
--- NOTE | 2020-12-15 14:45 | NUR ---
pt refusing home health for pt.
--- NOTE | 2020-12-15 16:00 | NUR ---
DISCHARGE EDUCATION PROVIDED TO AND PT, IV REMOVED, ESCORTED OUT VIA WHEELCHAIR.
== END 2020-12-15 16:00 | disposition home or self-care (01) ==
LOC: COL.ER 17:10 → MEDICAL 18:35
PROVIDERS: Emergency Medicine; Nurse Practitioner Primary Care; ADMIT Hospitalist
DX: I21.4 Non-ST elevation (NSTEMI) myocardial infarction (principal); J44.9 Chronic obstructive pulmonary disease, unspecified; J96.11 Chronic respiratory failure with hypoxia; E43 Unspecified severe protein-calorie malnutrition; Z68.1 Body mass index [BMI] 19.9 or less, adult; F03.90 Unspecified dementia, unspecified severity, without behavioral disturbance, psychotic disturbance, mood disturbance, and anxiety; D72.829 Elevated white blood cell count, unspecified; Z20.822 Contact with and (suspected) exposure to COVID-19; I48.0 Paroxysmal atrial fibrillation; G25.0 Essential tremor; R13.10 Dysphagia, unspecified; F32.9 Major depressive disorder, single episode, unspecified; Z85.51 Personal history of malignant neoplasm of bladder; Z85.118 Personal history of other malignant neoplasm of bronchus and lung; E87.3 Alkalosis; R53.81 Other malaise; Z87.891 Personal history of nicotine dependence; Z99.81 Dependence on supplemental oxygen; Z79.899 Other long term (current) drug therapy; Z79.52 Long term (current) use of systemic steroids; Z88.5 Allergy status to narcotic agent; Z91.048 Other nonmedicinal substance allergy status; Z92.21 Personal history of antineoplastic chemotherapy; Z92.3 Personal history of irradiation
CPT/HCPCS: G0378; J1630; J1650; J1940

== ENCOUNTER 2020-12-19 11:40 | Inpatient (IN) | payer MEDICARE, OTHER ==
[~2020-12-19] VITALS: Ht 160 cm; Wt 56.4 kg
[2020-12-19] VITALS (326 sets, daily range): BP systolic 113–149; BP diastolic 61–69; PULSE 66–79; TEMP 97.6–97.7; O2SAT 81–100
[~2020-12-19 11:40] MED LIST changes: +ASPIRIN E.C. 8181 MG PO; +PLAVIX 75MG TAB75 MG PO
[2020-12-19 12:08] LABS: HEMATOCRIT 37.5 % (42.0-52.0); MEAN CELL VOLUME 101 fl (80.0-100.0); MEAN CORPUSCULAR HEMOGLOBIN 30 pg (27.0-31.0); MEAN CORPUSCULAR HGB CONC 29 g/dl (33.0-37.0); MEAN PLATELET VOLUME 12.6 fl (7.4-10.4); PLATELET COUNT 279 K/mm3 (130-400); REDCELL DISTRIBUTION WIDTH-CV 14.4 % (11.5-14.5)
[2020-12-19 12:14] LABS: ARTERIAL BLD GAS O2 SATURATION 96.3 % (92-100); ARTERIAL BLOOD GAS BASE EXCESS 5.1 (-2-2); ARTERIAL BLOOD GAS HCO3 32.2 meq/L (22-26); ARTERIAL BLOOD GAS PO2 87.3 mmHg (80-100); ARTERIAL BLOOD GAS pH 7.35 (7.35-7.45)
[2020-12-19 12:22] LABS: COLLECTION METHOD CLEAN CATCH
[2020-12-19 12:24] LABS: ALBUMIN 3.7 gm/dL (3.5-5.0); BILIRUBIN,TOTAL 0.4 mg/dL (0.0-1.0); CALCIUM 9.2 mg/dL (8.4-10.2); CREATININE, serum 0.77 (0.66-1.25); POTASSIUM 4.4 mmol/L (3.4-5.0); TOTAL PROTEIN 6.7 gm/dL (6.4-8.2)
[2020-12-19 12:28] LABS: BAND 1 % (0-10); LYMPHOCYTE 1 % (20.0-51.0); NEUTROPHILS 94 % (42.0-75.2)
[2020-12-19 12:29] LABS: HYPOCHROMIA 3+; PLATELET ESTIMATE NORMAL (NORMAL); TOXIC GRANULATION PRESENT
[2020-12-19 12:32] LABS: MUCOUS Present /lpf; PH 5 (5-8); SQUAMOUS EPITHELIAL 0-2 /hpf; URINE APPEARANCE Cloudy; URINE BACTERIA None Seen /hpf; URINE BILIRUBIN Negative (NEGATIVE); URINE BLOOD Negative (NEGATIVE); URINE COLOR Yellow; URINE GLUCOSE Negative (NEGATIVE); URINE KETONE Negative (NEGATIVE); URINE LEUKOCYTE ESTERASE Trace (NEGATIVE); URINE NITRATE Negative (NEGATIVE); URINE PROTEIN(semi-quant) 2+ (NEGATIVE); URINE RBC 0-2 /hpf; URINE UROBILINOGEN Negative (NEGATIVE)
[2020-12-19] MEDS ORDERED: IPRATROPIUM BROM3 M1 IH (13:44)
[2020-12-19] MEDS ORDERED: LASIX 20MG TABL20 MG PO (13:48)
[2020-12-19] MEDS ORDERED: KLOR-CON 88 ME1 PO (13:50)
[2020-12-19 15:51] LABS: TROPONIN-I 3 HR POST INITIAL 0.014 ng/mL (0.000-0.034)
--- NOTE | 2020-12-19 16:00 | NUR ---
Talked with , Suzanna Newby, by phone as pt is very tired and not able to talk with this nurse. Suzanna Newby states that her has pneumonia from aspiration. She hopes that cardiology and pulmonology will be consulted on her 's case. At this point she wants him to be supported through this. She brought up the subject of a feeding tube but then stated that someone had told her that might not work out well. I have tried to talk with Dr Snyder but he was not available. I will touch base with Suzanna Newby tomorrow.
[2020-12-19 18:57] LABS: CALCIUM 8.2 mg/dL (8.4-10.2); CREATININE, serum 0.69 (0.66-1.25)
[2020-12-20] VITALS (773 sets, daily range): BP systolic 91–129; BP diastolic 46–573; PULSE 40–173; TEMP 97.3–98.4; O2SAT 63–100
[2020-12-20 06:09] LABS: BASO % 0.2 % (0.0-2.0); EOS % 0.2 % (0-4.0); GRAN # 14.7 (1.4-6.5); GRAN % 87.5 % (42.2-75.2); LYMPH # 0.7 (1.2-3.4); MEAN CELL VOLUME 99 fl (80.0-100.0); MEAN CORPUSCULAR HGB CONC 30 g/dl (33.0-37.0); MEAN PLATELET VOLUME 12.3 fl (7.4-10.4); MONO # 1.3 (0.1-0.6); MONO % 7.7 % (1.7-9.3); PLATELET COUNT 245 K/mm3 (130-400); REDCELL DISTRIBUTION WIDTH-CV 14.1 % (11.5-14.5)
[2020-12-20 06:12] LABS: HEMATOCRIT 31.8 % (42.0-52.0); HEMOGLOBIN 9.4 g/dl (13.5-18.0); MEAN CORPUSCULAR HEMOGLOBIN 29 pg (27.0-31.0)
[2020-12-20 06:18] LABS: CALCIUM 8.3 mg/dL (8.4-10.2); CREATININE, serum 0.72 (0.66-1.25); POTASSIUM 3.7 mmol/L (3.4-5.0)
--- NOTE | 2020-12-20 10:00 | NUR ---
Patient went into afib rvr, at bedside already for rounds. Ordered an EKG, cardizem olus and gtt, and a 500ml bolus of IVF that was running. He consulted and called him.
--- NOTE | 2020-12-20 10:15 | NUR ---
Sw update. Patient readmit, last stay DC 12/15. Patient has a Christen who is DP . Patient resides with locally and is caregiver. Patient uses a walker for walker. Patient has 4 liters of O2. [facility], pcp is Dr. Larios and RX is obtained at [facility]. reports that nothing has change but has not switched medications to [facility] since they last left. Indicated that medications were not filled from last stay. has questions regarding a-fib educated nurse to call for additional information. Will continue to follow for care needs.
--- NOTE | 2020-12-20 12:00 | NUR ---
Spoke to Wilmer , patients . Updated her on the plan of care for patient and that he went into afib and a cardizem gtt was started. She had many questions and all were answered to the best of my ability. She stated she would like for and to call her at some point today.
--- NOTE | 2020-12-20 14:13 | NUR ---
Speech therapist just finished seeing patient. She said mechanical soft diet was okay for him and to thicken his liquids with nectar thick, and only drink from a teaspoon, no straw.
--- NOTE | 2020-12-20 14:40 | NUR ---
here to see patient. He said ok to turn cardizem gtt off because HR is well rate controlled and he ordered me to order PO multaq 400 BID. He was notified that the patients wanted to speak to him so he was given her number to call her.
--- NOTE | 2020-12-20 19:30 | NUR ---
Received report from DARELL Young. All medications verified and questions answered. Patient sitting at recliner near bedside. VSS. Will resume care at this time.
--- NOTE | 2020-12-20 21:44 | NUR ---
Called, TRAY Samuels and stated patient has been hypotensive with BP in the 70-60s/40s. Current VS prior to calling PA were 83/43 with a MAP of61, 60hr, 15rr, 100% O2 on 4L NC. Patient appears relaxed watching TV in bed. Alert and oriented x2 but confused at baseline d/t dementia. Patient states he feels fine he is just tired. Patient has hx of CHF. Received 1x order for 500ml 1/2NS bolus.
--- NOTE | 2020-12-20 23:50 | NUR ---
500ml 1/2NS bolus completed. Nurse noted IV in patients RAC appeared cool to the touch, swollen and appeared to be leaking. IV site had infiltrated. Nurse called change house attendant who placed a 22g in the patients left wrist. Patient currently has 1/2NS going at 125mls/hr. BP after adminsitration of bolus was 94/50 with a MAP of 69. Nurse notified Abril FELIZ and ALBERTO Gardiner of recent BP's with MAPs ranging from 65-69 still. Orders to increase 1/2NS to 125mls/hr from 100mls/hr and draw stat BMP.
[2020-12-21] VITALS (381 sets, daily range): BP systolic 87–141; BP diastolic 53–74; PULSE 58–97; TEMP 97.5–98.1; O2SAT 55–100
[2020-12-21 00:42] LABS: CALCIUM 7.8 mg/dL (8.4-10.2); CREATININE, serum 0.78 (0.66-1.25); POTASSIUM 3.5 mmol/L (3.4-5.0)
--- NOTE | 2020-12-21 01:25 | NUR ---
Received call from TRAY Samuels in regards pts sodium level of 138 from 150 and potassium level of 3.5. Received orders to place patient on potassium protocol and administer a total of 60meq IV push and switch IV fluids from 1.2NS to NS.
--- NOTE | 2020-12-21 02:44 | NUR ---
Patient arrived to unit with belongings bag from medical floor. Has pants, shirt, shoes, small notebook full of phone numbers and a check book inside belongings bag. Patient refused for belongings to be locked up at this time.
[2020-12-21 05:18] LABS: MEAN CELL VOLUME 95 fl (80.0-100.0); MEAN CORPUSCULAR HGB CONC 31 g/dl (33.0-37.0); MEAN PLATELET VOLUME 12.5 fl (7.4-10.4); PLATELET COUNT 195 K/mm3 (130-400); RED BLOOD COUNT 2.74 M/mm3 (4.20-5.60); REDCELL DISTRIBUTION WIDTH-CV 13.4 % (11.5-14.5)
[2020-12-21 05:28] LABS: CALCIUM 7.8 mg/dL (8.4-10.2); CREATININE, serum 0.69 (0.66-1.25); POTASSIUM 3.9 mmol/L (3.4-5.0)
[2020-12-21 05:29] LABS: HEMATOCRIT 26.1 % (42.0-52.0); HEMOGLOBIN 8.1 g/dl (13.5-18.0); MEAN CORPUSCULAR HEMOGLOBIN 30 pg (27.0-31.0)
[2020-12-21 05:47] LABS: BAND 5 % (0-10); LYMPHOCYTE 2 % (20.0-51.0); NEUTROPHILS 90 % (42.0-75.2); PLATELET ESTIMATE NORMAL (NORMAL)
--- NOTE | 2020-12-21 11:35 | NUR ---
I talked with Christa yesterday afternoon by phone. She is quite suspicious that the heart irregularities are due to his breathing treatments. She did report to me that he not done a breathing treatment before he passed out. Suzanna Newby was very concerned that everyone understand that the DNR on the chart only means to not do chest compressions--she would want everything else done for him. It is Christa's hope that he will return home with her at discharge. She did agree with me that he was getting weaker and that she is aware that his situation could end badly but wants to do all the supportive care that can be done to help him live. Her goal remains to bring him home and care for him there.
--- NOTE | 2020-12-21 14:00 | NUR ---
REPORT CALLED TO DARELL MACHADO
--- NOTE | 2020-12-21 14:06 | NUR ---
Spoke with Suzanna Newby today. She was happy to hear he was going to be moving to the medical floor today. I did tell her about his blood pressure and pulse going low last night but seemed to correct and is doing well now. She does report that she has "some help" at home at times. She did tell me that she was willing to consider a brief rehab stay if it would help him get stronger so he could do better at home. Support provided.
--- NOTE | 2020-12-21 16:22 | NUR ---
PT VERY [place], ON 4L OXYGEN PER BASELINE, IN CHAIR WITH CHAIR ALARM ON, NO OTHER NEEDS AT THIS TIME.
--- NOTE | 2020-12-21 16:24 | NUR ---
JAZMIN UPDATED ON PATIENT'S STATUS AND TOLD HER ABOUT THE PATIENT MOVING TO ROOM 314.
--- NOTE | 2020-12-21 17:06 | NUR ---
PT PLEASANT, [place], COUGHING WITH MEAL, OXYGEN IN NOSE, DENIES PAIN, ANTIBIOTICS RUNNING, NO OTHER NEEDS. AT THIS TIME.
--- NOTE | 2020-12-21 18:11 | NUR ---
pt often trying to get out of bed to attempt to urinate, pt forgets he has catheter, just needs regular prompting.
--- NOTE | 2020-12-21 19:15 | NUR ---
RECEIVED CHANGE OF SHIFT REPORT FROM DAY SHIFT NURSE.
--- NOTE | 2020-12-21 22:50 | NUR ---
PATIENT FOUND COUGHING BY OIL PROGRAM COMPLIANCE SPECIALIST WITH SATS IN LOW 80'S & OFF OF O2 W/COUGHING. OXYGEN APPLIED PER OXI MASK @ 6L FOR 2 MIN UNTIL SATS INCREASED TO 95% DURING THAT TIME THEN O2 RATE DECREASED BACK DOWN TO 4L, RT CONTACTED DURING EPISODE/INFORMED OF PATIENT'S RESP STATUS/COUGHING REPORTING PATIENT HAD RECENT RT TX PRIOR TO COUGHING EPISODE.
--- NOTE | 2020-12-21 23:15 | NUR ---
HS PILLS CRUSHED AND MIXED WITH APPLESAUCE.
--- NOTE | 2020-12-21 23:33 | NUR ---
PATIENT TOLERATED TAKING CRUSHED MEDS MIXED IN APPLESAUSE, AVOIDED USED OF STRAWS DURING TAKING OF NECTAR THICK ORAL FLUIDS PER SPOON. PATIENT DENIES INCREASED SOA/CHEST PAIN AT THIS TIME. PATIENT DENIES ANY NEEDS CURRENTLY. RESTING WITH EYES CLOSED, OXYGEN PER OXIMASK AT 4L O2.
--- NOTE | 2020-12-22 02:42 | NUR ---
PATIENT REPORTED WAKING UP AND FORGETTING WHERE HE WAS AT, STATING "IF I HAD LOOKED AROUND BETTER I WOULD HAVE KNOW" WHEN ASKED PATIENT WHERE HE WAS AT HE REPLIED HE WAS IN THE HOSPITAL BUT COULD NOT RECALL HIS REASON FOR BEING HOSPITALIZED. SPEECH CLEAR AND FOLLOWS COMMANDS EASILY. REPORTS NO PROBLEMS WITH BREATHING AT THIS TIME. OXYGEN CONTINUES PER OXIMASK AT 4L
[2020-12-22 04:24] VITALS: BP 120/57; PULSE 61; TEMP 97.6
--- NOTE | 2020-12-22 04:41 | NUR ---
APPLIED EMELY DRSG TO COCCYX AREA.
[2020-12-22 06:21] LABS: BASO % 0.1 % (0.0-2.0); GRAN # 13.3 (1.4-6.5); GRAN % 89.9 % (42.2-75.2); LYMPH # 0.6 (1.2-3.4); LYMPH % 4.1 % (20.0-51.0); MEAN CELL VOLUME 96 fl (80.0-100.0); MEAN CORPUSCULAR HGB CONC 30 g/dl (33.0-37.0); MONO # 0.7 (0.1-0.6); MONO % 4.7 % (1.7-9.3); PLATELET COUNT 283 K/mm3 (130-400); RED BLOOD COUNT 2.92 M/mm3 (4.20-5.60); REDCELL DISTRIBUTION WIDTH-CV 13.5 % (11.5-14.5)
[2020-12-22 06:27] LABS: CALCIUM 8.3 mg/dL (8.4-10.2); CREATININE, serum 0.84 (0.66-1.25); POTASSIUM 3.7 mmol/L (3.4-5.0)
[2020-12-22 06:32] LABS: HEMATOCRIT 28.1 % (42.0-52.0); HEMOGLOBIN 8.4 g/dl (13.5-18.0); MEAN CORPUSCULAR HEMOGLOBIN 29 pg (27.0-31.0)
--- NOTE | 2020-12-22 07:09 | NUR ---
CHANGE OF SHIFT REPORT GIVEN TO DAY SHIFT NURSE.
[2020-12-22 08:00] VITALS: BP 111/80; PULSE 159; TEMP 97.8
--- NOTE | 2020-12-22 08:00 | NUR ---
PT SHOUTING HELP IN HIS ROOM, PT HAD OXYGEN PULLED OFF FACE AND WAS SAYING HE NEEDED TO POOP. PT AMBULATED TO BATHROOM W/ ASSISTANCE. CALL FROM TELE REPORTING AFIB RVR W/ HR IN 150'S. GOT PT BACK IN BED, TOOK VITAL SIGNS, O2 IN HIGH 70'S/LOW80'S. HARD TO GET GOOD PULSE OX READING W/ PT POOR CIRCULATION. CALLED RT, GRADUALLY TURNED PT UP TO 10L AND STILL SATTING LOW 80'S. NOTIFIED DR. FITCH OF LOW O2, AFIB RVR, AND DARK PINK URINE AT APPROX 0820. PHYSICIAN ORDERED ABG, XRAY, UA, AND EKG. COLLECTED UA, CALLED RADIOLOGY, JACOBY RT IN ROOM TO DO EKG AND ABG. ONCE ABG RESULTED DR. FITCH WANTED AIRVO IN PLACE. PT PLACED ON AIRVO AT 0922 ON 40L 66% FIO2 SATTING 92%.
[2020-12-22 08:51] LABS: ARTERIAL BLD GAS O2 SATURATION 88.8 % (92-100); ARTERIAL BLD GAS TCO2 CT 25.8; ARTERIAL BLOOD GAS BASE EXCESS 0.5 (-2-2); ARTERIAL BLOOD GAS HCO3 24.7 meq/L (22-26); ARTERIAL BLOOD GAS PO2 58.2 mmHg (80-100); ARTERIAL BLOOD GAS pH 7.43 (7.35-7.45)
[2020-12-22 10:44] LABS: COLLECTION METHOD IN
[2020-12-22 10:55] LABS: MUCOUS Present /lpf; PH 5 (5-8); SQUAMOUS EPITHELIAL None Seen /hpf; URINE APPEARANCE Hazy; URINE BACTERIA Rare /hpf; URINE BILIRUBIN Negative (NEGATIVE); URINE BLOOD 3+ (NEGATIVE); URINE COLOR Yellow; URINE GLUCOSE Negative (NEGATIVE); URINE KETONE Negative (NEGATIVE); URINE LEUKOCYTE ESTERASE 1+ (NEGATIVE); URINE NITRATE Negative (NEGATIVE); URINE PROTEIN(semi-quant) 1+ (NEGATIVE); URINE RBC >50 /hpf; URINE UROBILINOGEN Negative (NEGATIVE); URINE WBC 0-2 /hpf
--- NOTE | 2020-12-22 11:03 | NUR ---
PT TRYING TO GET OUT OF BED TO URINATED. EDUCATED HIM ON CATHETER, PT STARTED HAVING INC EXPIRATORY WHEEZING AND STATING IT WAS HARD TO BREATH. PT SATTING LOW 80'S, PT BOOSTED IN BED, HOB UP, CALLED RT BUT SHE IS CURRENTLY IN ANOTHER ROOM. PT NOW SATTING 86% AND PT IS NOT HAVING MUCH WHEEZING.
[2020-12-22 12:00] VITALS: BP 122/65; PULSE 83; TEMP 98
--- NOTE | 2020-12-22 12:15 | NUR ---
PT ATTEMPTING TO GET OUT OF BED, STARTING HAVING EXPIRATORY WHEEZES, SATTING 84%, TECH NOTIFIED ME OF SITUATION, RT NOTIFIED, PT CAME UP TO 91% ON HIS OWN RESTING IN BED, RT TURNED HIM UP TO 50L 70%FIO2.
--- NOTE | 2020-12-22 13:52 | NUR ---
TECH REPORTED LARGE AMOUNTS OF URINE LEAKING FROM MCQUEEN CATHETER, ADVANCED MCQUEEN FURTHER AND ADDED 5 MORE MLS OF NS TO BALLOON. PT NOT REPORTING DISCOMFORT, NO LEAKING AT THIS TIME WILL REASSESS.
[2020-12-22 15:47] VITALS: BP 133/59; PULSE 67; TEMP 98.5
--- NOTE | 2020-12-22 16:12 | NUR ---
pt satting mid 80's for about 20min, called marii rt and pt came up to 90's on his own. o2 sats fluctuate frequently, pulse ox continuous on finger, updated earlier in day on situation with airvo.
--- NOTE | 2020-12-22 16:15 | NUR ---
removed 16french landry due to leaking, placed 18french, draining well.
--- NOTE | 2020-12-22 17:24 | NUR ---
pt attempting to get out of bed on his own most of shift, pt on airvo and has not attempted to take out airvo, 18french landry placed and no leaking since placement, pt sob with movement in the bed but not at rest, no PT today due to inc hr and sob with movement, no other needs.
--- NOTE | 2020-12-22 20:00 | NUR ---
Report received, assumed care for shift boss. Assessment complete. VS stable. A&O to self-currently thinks he is in the store waiting on a ride home. Has been very impulsive so far this shift-trying to get out of bed to urinate-reminded of landry cath which is draining a light pink urine. Assisted back to bed multiple times. Denies pain/nausea. Short of breath at rest. AIRVO-50L/70% with O2 saturations in the mid 90s. Will desat with increased activity and agitation. Meds crushed and put in apple sauce. Tolerated well. Denies current needs. Call light in reach. Will monitor.
[2020-12-22 20:29] VITALS: BP 131/71; PULSE 86; TEMP 98.1
[2020-12-23 00:28] VITALS: BP 132/57; PULSE 88; TEMP 97.9
[2020-12-23 03:14] VITALS: BP 130/72; PULSE 85; TEMP 98
[2020-12-23 04:47] LABS: ARTERIAL BLD GAS O2 SATURATION 95.2 % (92-100); ARTERIAL BLD GAS TCO2 CT 33.3; ARTERIAL BLOOD GAS BASE EXCESS 7.3 (-2-2); ARTERIAL BLOOD GAS HCO3 31.9 meq/L (22-26); ARTERIAL BLOOD GAS PCO2 46.1 mmHg (35-45); ARTERIAL BLOOD GAS PO2 77.3 mmHg (80-100); ARTERIAL BLOOD GAS pH 7.46 (7.35-7.45)
--- NOTE | 2020-12-23 05:34 | NUR ---
Did not rest much this shift. Very confused and at times combative. Continued to remove AIRVO and tele monitor. Mitts were applied bilat. Has climbed over bed rails several times. Reoritented often. Currently resting with eyes closed. Call light in reach/bed alarm on. Will monitor.
[2020-12-23 06:52] LABS: BASO % 0.1 % (0.0-2.0); EOS % 0.1 % (0-4.0); GRAN % 87.9 % (42.2-75.2); LYMPH % 5.7 % (20.0-51.0); MEAN CELL VOLUME 93 fl (80.0-100.0); MEAN CORPUSCULAR HGB CONC 32 g/dl (33.0-37.0); MEAN PLATELET VOLUME 11.4 fl (7.4-10.4); MONO # 0.9 (0.1-0.6); MONO % 5.2 % (1.7-9.3); PLATELET COUNT 328 K/mm3 (130-400); RED BLOOD COUNT 2.79 M/mm3 (4.20-5.60); REDCELL DISTRIBUTION WIDTH-CV 13.5 % (11.5-14.5)
--- NOTE | 2020-12-23 06:55 | NUR ---
Report with DARELL Munroe. Pt resting in bed with eyes closed, resp even and unlabored. Airvo NC in place. Mits to bilat hands d/t pt taking O2 off. IVF's infusing per orders through right forearm site without s/s of complications. Call light in reach. Bed alarm on.
[2020-12-23 06:56] LABS: HEMATOCRIT 25.9 % (42.0-52.0); HEMOGLOBIN 8.2 g/dl (13.5-18.0); MEAN CORPUSCULAR HEMOGLOBIN 29 pg (27.0-31.0)
[2020-12-23 07:07] LABS: ALBUMIN 2.5 gm/dL (3.5-5.0); BILIRUBIN,TOTAL 0.4 mg/dL (0.0-1.0); CALCIUM 8.1 mg/dL (8.4-10.2); CREATININE, serum 0.75 (0.66-1.25); POTASSIUM 3.5 mmol/L (3.4-5.0); TOTAL PROTEIN 4.9 gm/dL (6.4-8.2)
[2020-12-23 08:25] VITALS: BP 134/65; PULSE 93; TEMP 98.3
--- NOTE | 2020-12-23 08:40 | NUR ---
Assessment complete. Pt resting in bed, intermittently attempting to get up from the bed "trying to pee" but reminded of his catheter, pt also states, "I'm getting out of here." Mits in place to bilat hands to prevent pt from pulling O2 and telemetry off. Pt confused, reoriented easily but quickly forgetful as well. Breath sounds with audible wheezing to all lung porter. Airvo in place at 50 liters. Monroe to DD with red-tinged urine, small clots in tube. IVF's infusing to right forearm per orders without s/s of complications. No further needs reported. Call light in reach.
--- NOTE | 2020-12-23 09:20 | NUR ---
Telemetry notifies this nurse that pt's heart rate is back in the 160s and not going back down as it did 10 minutes ago. Provider notified, recommends monitoring for 15 minutes and if the high rate is sustained obtain an EKG and notify coffee attendant.
--- NOTE | 2020-12-23 09:30 | NUR ---
Pt's heart rate has decreased back down to the 80's.
[2020-12-23 11:11] VITALS: BP 123/80; PULSE 98; TEMP 98.4
[2020-12-23 15:37] VITALS: BP 114/74; PULSE 89; TEMP 98.2
--- NOTE | 2020-12-23 18:04 | NUR ---
Pt sitting up to eat supper. Sched medications administered. Pt has had intermittent confusion throughout the shift and attempted to get out of bed but easily reoriented. No needs reported. Call light in reach. Bed alarm on.
--- NOTE | 2020-12-23 19:10 | NUR ---
Report with DARELL Roach. Pt resting in bed, watching TV. Airvo NC remains in place at 50 L/79% FiO2. IVF's continue infusing. Call light in reach. Bed alarm on.
[2020-12-23 19:59] VITALS: BP 129/58; PULSE 88; TEMP 98.5
[2020-12-24] VITALS (7 sets, daily range): BP systolic 102–145; BP diastolic 57–83; PULSE 60–94; TEMP 97.5–98.6
--- NOTE | 2020-12-24 03:52 | NUR ---
Patient has rested off and on this evening. He has taken mitts off multiple times and has tried to remove oxygen. His bed alarm is on, Airvo nc on, landry catheter in place, and IVF are running.
--- NOTE | 2020-12-24 05:43 | NUR ---
Patient became combative and ripped off airvo nc, and was trying to get out of the bed. DARELL Ho and DARELL Roach got him calmed down and sat him on the commode where he had a bowel movement. Got an order for .5mg IV Ativan to help calm him down. Patient laying back down in bed with airvo nc, landry catheter in place and IVF running. ABGs are being drawn now, will call results to RATE MARKER. Bed alarm on.
[2020-12-24 05:56] LABS: ARTERIAL BLD GAS O2 SATURATION 94.9 % (92-100); ARTERIAL BLD GAS TCO2 CT 33.5; ARTERIAL BLOOD GAS BASE EXCESS 7.2 (-2-2); ARTERIAL BLOOD GAS PCO2 46.9 mmHg (35-45); ARTERIAL BLOOD GAS PO2 75.8 mmHg (80-100); ARTERIAL BLOOD GAS pH 7.45 (7.35-7.45)
[2020-12-24 06:38] LABS: MEAN CELL VOLUME 94 fl (80.0-100.0); MEAN CORPUSCULAR HGB CONC 31 g/dl (33.0-37.0); MEAN PLATELET VOLUME 10.6 fl (7.4-10.4); PLATELET COUNT 348 K/mm3 (130-400); RED BLOOD COUNT 2.88 M/mm3 (4.20-5.60); REDCELL DISTRIBUTION WIDTH-CV 13.4 % (11.5-14.5)
[2020-12-24 06:39] LABS: HEMATOCRIT 27.1 % (42.0-52.0); HEMOGLOBIN 8.5 g/dl (13.5-18.0); MEAN CORPUSCULAR HEMOGLOBIN 30 pg (27.0-31.0)
[2020-12-24 06:51] LABS: CREATININE, serum 0.76 (0.66-1.25); POTASSIUM 3.8 mmol/L (3.4-5.0)
[2020-12-24 07:47] LABS: BAND 3 % (0-10); LYMPHOCYTE 7 % (20.0-51.0); NEUTROPHILS 86 % (42.0-75.2); PLATELET ESTIMATE NORMAL (NORMAL)
--- NOTE | 2020-12-24 09:20 | NUR ---
Pt sleeping upon entry to room, easily awakened. no C/O pain at this time. Shift assessments complete, left Pt call light in reach, bed in lowest position, alarm on.
--- NOTE | 2020-12-24 10:42 | NUR ---
Initial visit; Patient appeared to not understand what Qm Consultant tried to say. She offered God's blessings.
--- NOTE | 2020-12-24 13:22 | NUR ---
Payroll Secretary attended clinical rounds with the team. HA collaborated with NAKUL Ortiz who advised patient would benefit from post acute rehab. HA followed up with patient's , Rosie who is agreeable to placement with the understanding that it would be short term with the overall goal to return home. Preferences are 1) [place] 2) [place] and 3) [place] in [place]. Rosie does not want referral sent to [facility]. HA faxed referrals and updated TRAY Suarez. HA will continue to follow.
--- NOTE | 2020-12-24 15:57 | NUR ---
called to talk with Main but he was too sleepy to talk with her. She requested that his nurse help him call her when he is more awake. is agreeable at this time to looking into a brief rehab stay. She was surprised that he was being fed by the nurses rather than eating on his own. Support provided
--- NOTE | 2020-12-24 20:45 | NUR ---
Resting in bed. Assessment complete. Bases bilaterally diminished. Otherwise clear. Patient reporting shortness of breath with movement otherwise no increased WOB. Patient on airvo at this time. Heart sounds normal. Bowels active x4. Pulses present throughout. Bilateral lower ext edema +1. [place] to dependent drainage. Stage 1 pressure ulcer open to air. Bilateral arm brusing present. Denies pain. Denies needs at this time. Call light in reach.
--- NOTE | 2020-12-24 23:51 | NUR ---
Resting in bed. Denies needs. Call light in reach.
[2020-12-25] VITALS (587 sets, daily range): BP systolic 98–119; BP diastolic 51–99; PULSE 67–91; TEMP 97.4–99.1; O2SAT 73–100
--- NOTE | 2020-12-25 05:00 | NUR ---
Patient 86% on 45 liters 65 % fiO2. Patient awakened. Oxygen saturations decreased to high 70s low 80s. Respiratory contacted. Airvo increased and receiving breathing treatment at this time. Lungs diminished. Cough wet and weak. Attempted to update TRAY Samuels for possible bipap orders.
--- NOTE | 2020-12-25 05:08 | NUR ---
RN CALLED BECAUSE HIS SPO2 DECREASED. O2 INCREASED TO 60 LPM AND 80% VIA AIRVO. SVN GIVEN. PATIENT ENCOURAGED TO COUGH. SPO2 INCREASED TO 97%.
--- NOTE | 2020-12-25 05:14 | NUR ---
Patient airvo increased from 45L and 65% to 60 liters and 80%. Telemetry called stating patient appears to be in afib. EKG per telemetry protocol.
[2020-12-25 06:04] LABS: ARTERIAL BLD GAS O2 SATURATION 85.7 % (92-100); ARTERIAL BLD GAS TCO2 CT 36.7; ARTERIAL BLOOD GAS BASE EXCESS 10.4 (-2-2); ARTERIAL BLOOD GAS HCO3 35.2 meq/L (22-26); ARTERIAL BLOOD GAS PCO2 48.5 mmHg (35-45); ARTERIAL BLOOD GAS pH 7.48 (7.35-7.45)
[2020-12-25 06:05] LABS: ARTERIAL BLOOD GAS PO2 48.2 mmHg (80-100)
--- NOTE | 2020-12-25 07:00 | NUR ---
Report received from DARELL Pineda. Patient lying in bed on the Bipap. VS WNL.
--- NOTE | 2020-12-25 07:10 | NUR ---
Patient transferred to ICU at 0640. Bedside report given to DARELL Pineda. Patient oxygen saturations prior to transfer 70s. Abril FELIZ at bedside with patient during this time. Patient placed on bipap prior to transfer.
[2020-12-25 08:01] LABS: HEMOGLOBIN 10.2 g/dl (13.5-18.0); MEAN CELL VOLUME 96 fl (80.0-100.0); MEAN CORPUSCULAR HEMOGLOBIN 30 pg (27.0-31.0); MEAN CORPUSCULAR HGB CONC 31 g/dl (33.0-37.0); MEAN PLATELET VOLUME 11.1 fl (7.4-10.4); PLATELET COUNT 444 K/mm3 (130-400); RED BLOOD COUNT 3.46 M/mm3 (4.20-5.60); REDCELL DISTRIBUTION WIDTH-CV 13.6 % (11.5-14.5)
[2020-12-25 08:10] LABS: CALCIUM 8.4 mg/dL (8.4-10.2); CREATININE, serum 0.88 (0.66-1.25); POTASSIUM 3.7 mmol/L (3.4-5.0)
[2020-12-25 08:16] LABS: HEMATOCRIT 33.1 % (42.0-52.0)
[2020-12-25 08:32] LABS: ARTERIAL BLD GAS O2 SATURATION 93.1 % (92-100); ARTERIAL BLOOD GAS BASE EXCESS 6.7 (-2-2); ARTERIAL BLOOD GAS HCO3 31.6 meq/L (22-26); ARTERIAL BLOOD GAS PCO2 46.6 mmHg (35-45); ARTERIAL BLOOD GAS PO2 73.3 mmHg (80-100); ARTERIAL BLOOD GAS pH 7.45 (7.35-7.45)
[2020-12-25 08:37] LABS: EOSINOPHIL 1 % (0-4); LYMPHOCYTE 5 % (20.0-51.0); NEUTROPHILS 91 % (42.0-75.2); PLATELET ESTIMATE INCREASED (NORMAL)
[2020-12-25 08:38] LABS: HYPOCHROMIA 2+
--- NOTE | 2020-12-25 13:50 | NUR ---
I talked with Suzanna Newby today by phone. She asked if she could come visit Main, and I relayed to her that it is a firm rule that unless pt is on comfort care, family is not allowed to visit. I did tell her that Main was stating that he did not like the bipap and he wanted it to stop. Her reply was that soon he can switch to the airvo which can be more comfortable. His oxygen needs remain high and it would not be unlikely that he might have to go on the ventilator. Suzanna Newby stated this is what she would want done, if he needed it. i talked to her about his chances of getting off the ventilator would not be good. She paused and then moved on to another subject. She did ask about feedings but at this point that will not be a top priority and will depend on what the next 24 hours hold. She continues to want everything done to help him survive except chest compressions. I asknowledged that this is a difficult time with difficult decisions being made.
--- NOTE | 2020-12-25 14:30 | NUR ---
Patient placed on Airvo at this time. He tolerates this well. He also drinks half of an ensure.
--- NOTE | 2020-12-25 16:11 | NUR ---
The patient was transferred to the ICU. He is on a bipap now. HA was notified that Goyo at [facility] plans to follow the patient. HA faxed updates to [facility], [facility], and [facility].
--- NOTE | 2020-12-25 17:15 | NUR ---
Update given to , Juan José, she also speaks to the patient on the phone.
--- NOTE | 2020-12-25 19:00 | NUR ---
Report given to DARELL Pineda
[2020-12-26] VITALS (683 sets, daily range): BP systolic 92–121; BP diastolic 58–69; PULSE 62–84; TEMP 97.3–98.3; O2SAT 71–100
[2020-12-26 06:10] LABS: ARTERIAL BLD GAS O2 SATURATION 96.6 % (92-100); ARTERIAL BLD GAS TCO2 CT 29.6; ARTERIAL BLOOD GAS HCO3 28.3 meq/L (22-26); ARTERIAL BLOOD GAS PCO2 41.8 mmHg (35-45); ARTERIAL BLOOD GAS pH 7.45 (7.35-7.45)
--- NOTE | 2020-12-26 10:29 | NUR ---
The hospitalist would like a referral to [facility]. HA attempted to contact Cipriano at [facility]. His voicemail was full. HA faxed a referral to Cipriano at [facility]. Awaiting screen.
--- NOTE | 2020-12-26 10:32 | NUR ---
I spoke with Wilmer by phone this morning. She was very pleased to hear that Main wanted me to tell her that he "loved her and missed her". I also told her that he had eaten breakfast this morning but was still hungry and his nurse was going to try to get him more to eat. She does know that he is on the airvo and that his blood gas was looking better this morning. She is still anxious to come to see Main but understands that currently we have no visitors except at end of life when a patient is on comfort care. Support provided.
--- NOTE | 2020-12-26 11:01 | NUR ---
Cipriano, from [facility] returned HA's call. Cipriano will look over the referral and let HA know if patient qualifies.
--- NOTE | 2020-12-26 19:27 | NUR ---
Report given to DARELL Pineda
--- NOTE | 2020-12-26 19:50 | NUR ---
Pt's SpO2 maintaining between 84-87%, pt states "a little" when asked if short of breath. BiPap applied. RT notified. SpO2 increased to 98% right away
[2020-12-27] VITALS (419 sets, daily range): BP systolic 94–131; BP diastolic 48–68; PULSE 31–84; TEMP 97.5–98.1; O2SAT 68–100
[2020-12-27 05:19] LABS: MEAN CELL VOLUME 94 fl (80.0-100.0); MEAN CORPUSCULAR HGB CONC 31 g/dl (33.0-37.0); MEAN PLATELET VOLUME 11.1 fl (7.4-10.4); PLATELET COUNT 410 K/mm3 (130-400); RED BLOOD COUNT 3.21 M/mm3 (4.20-5.60); REDCELL DISTRIBUTION WIDTH-CV 13.5 % (11.5-14.5)
[2020-12-27 05:24] LABS: HEMATOCRIT 30.1 % (42.0-52.0); HEMOGLOBIN 9.4 g/dl (13.5-18.0); MEAN CORPUSCULAR HEMOGLOBIN 29 pg (27.0-31.0)
[2020-12-27 05:32] LABS: CALCIUM 8.2 mg/dL (8.4-10.2); CREATININE, serum 0.82 (0.66-1.25); POTASSIUM 4.3 mmol/L (3.4-5.0)
[2020-12-27 05:44] LABS: BAND 1 % (0-10); EOSINOPHIL 1 % (0-4); HYPOCHROMIA 2+; LYMPHOCYTE 3 % (20.0-51.0); METAMYELOCYTE 3 % (0-0); NEUTROPHILS 89 % (42.0-75.2); NUCLEATED RED BLOOD CELL 1 (0-6); PLATELET ESTIMATE NORMAL (NORMAL)
--- NOTE | 2020-12-27 11:00 | NUR ---
Cipriano, at [facility], reports that they are able to accept the patient and that they may have a bed available tomorrow. HA informed the clinical team. The hospitalist updated the patient's , Suzanna Newby. Suzanna Newby is in agreement to [facility]. HA contacted and reviewed [facility] in [place] with Suzanna Newby. Suzanna Newby confirms that she is agreeable to [facility] and would like a phone call from Cipriano. HA notified Cipriano. HA staffed with the patient's RN. The patient is bipap tolerate. The patient is to tentatively transfer up to the floor today. HA to fax updates to Cipriano at [facility].
--- NOTE | 2020-12-27 11:28 | NUR ---
HA contacted Ariana at [facility] for possible transfer. Ariana reports that if [facility] does have a bed tomorrow, they could do the transfer after 1200.
--- NOTE | 2020-12-27 11:41 | NUR ---
Spoke with Wilmer this morning. She has already spoken to Cipriano at [facility] and reports feeling good about his going there to get stronger. She is hopeful that he will be able to move up to third floor today so she can come visit and was told that ICU nurse would let her know when he is moved. Support provided.
--- NOTE | 2020-12-27 17:16 | NUR ---
PT'S HAS BECOME VERY AGGRESSIVE WITH THIS RN, AND DEMANDING INFORMATION THAT HAS BEEN GIVEN TO HER ALREADY.
--- NOTE | 2020-12-27 21:30 | NUR ---
Resting in bed. Assessment complete. Bases bilaterally diminished otherwise clear. Heart sounds normal. Bowels active x4. Pulses present throughout. No edema noted. PICC to right upper flushed without complications. Rpeorts generalized pain 6/10. Given PRN tramadol. Denies other needs at this time. Call light in reach.
--- NOTE | 2020-12-27 22:00 | NUR ---
Patient placed on bipap at this time.
--- NOTE | 2020-12-28 00:15 | NUR ---
Resting in bed. Denies needs. Denies pain. Call light in reach.
[2020-12-28 00:30] VITALS: BP 102/51; PULSE 61; TEMP 97.7
--- NOTE | 2020-12-28 04:37 | NUR ---
Up to restroom and returned to bed. Denies needs. Denies pain. Call light in reach.
[2020-12-28 05:15] VITALS: BP 100/53; PULSE 72; TEMP 97.7
--- NOTE | 2020-12-28 05:39 | NUR ---
Patient used restroom several times throughout night. Bladder scanned x1. Less than 20 present. Patient wore bipap most of night with occasional use of airvo due to soreness on bridge of nose from bipap. Otherwise uneventful night. Resting in bed this AM on bipap. Call light in reach.
[2020-12-28 07:09] LABS: MEAN CELL VOLUME 95 fl (80.0-100.0); MEAN CORPUSCULAR HGB CONC 31 g/dl (33.0-37.0); MEAN PLATELET VOLUME 11.5 fl (7.4-10.4); PLATELET COUNT 409 K/mm3 (130-400); RED BLOOD COUNT 3.14 M/mm3 (4.20-5.60); REDCELL DISTRIBUTION WIDTH-CV 13.8 % (11.5-14.5)
--- NOTE | 2020-12-28 07:28 | NUR ---
Report given to DARELL Knight
--- NOTE | 2020-12-28 07:30 | NUR ---
PATIENT IS SL DROWSY THIS AM. ORIENTED X2, DISPLAYS SOME CONFUSION. PATIENT HAS HX OF DEMENTIA. VSS WITH TELE INPLACE. NOTED ELEVATED WBC OF 22.0, AFEBILE AND NO DIARRHEA REPORTED. PATIENT IS INCONTIENT OF URINE, BRIEF INPLACE. RIGHT UPPER ARM PICC LINE TO INT. NO C/O N/V. BREAKFAST TRAY AT BEDSIDE. STUDENT NURSING ASSISTING PATIENT TO EAT MECH SOFT FOOD AND CRUSHED MEDS AND GAVE WITH APPLESAUCE. LIQUIDS ARE THICKENED. HEAD TO TOE ASSESSMENT COMPLETE. PATIENT ON AIRVO 50L DURING THE DAY AND BI-PAP AT HS. NOTED DYSPNEA ON EXERTION. A&P LUNG BASES DEMINISHED. ALSO NOTED OCCSATIONAL, NON-PRODUCTIVE COUGH. DNR. LIMITED MOBILITY. PT/OT/ST ALL CONSULTED. 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 PATIENT REQUIRES 1-2 ASSIST WITH TRANSFERS. STUDENT NURSE WORKING WITH PATIENT TODAY, SEE NOTES. IS NOT AT BEDSIDE AT THIS TIME.
[2020-12-28 07:32] LABS: CALCIUM 8.3 mg/dL (8.4-10.2); CREATININE, serum 0.87 (0.66-1.25); POTASSIUM 3.8 mmol/L (3.4-5.0)
[2020-12-28 07:36] LABS: HEMATOCRIT 29.7 % (42.0-52.0); HEMOGLOBIN 9.2 g/dl (13.5-18.0); MEAN CORPUSCULAR HEMOGLOBIN 29 pg (27.0-31.0)
[2020-12-28 08:00] VITALS: BP 101/47; PULSE 70; TEMP 97.9
[2020-12-28 09:05] LABS: BAND 1 % (0-10); LYMPHOCYTE 5 % (20.0-51.0); NEUTROPHILS 91 % (42.0-75.2); PLATELET ESTIMATE INCREASED (NORMAL)
--- NOTE | 2020-12-28 09:30 | NUR ---
PATIENT'S ARRIVED AND NOW AT BEDSIDE.
--- NOTE | 2020-12-28 09:40 | NUR ---
[facility] REP AT BEDSIDE TALKING WITH PATIENT AND . PLAN IS TO TRANSFER VIA EMS TO [facility] LATER TODAY. SEE ORDERS.
--- NOTE | 2020-12-28 09:43 | NUR ---
is currently meeting with Cipriano from [facility] in her 's room. Main is participating in the conversation and all seem to be onboard with transfer to [facility] in today. I also spoke with Michaela FELIZ about if pt would be clear to go to [facility] this afternoon. She reports after speaking with physician and reviewing today's reports that he would be clear to go today. sales agent business services and Cipriano were also notified of this, along with patient and his . Support provided to .
[2020-12-28] MEDS ORDERED: OS-CAL 500 + D1 TAB PO (09:56)
[2020-12-28] MEDS ORDERED: MULTAQ400 MG PO (09:57)
[2020-12-28] MEDS ORDERED: ELIQUIS 5MG PO (09:58)
--- NOTE | 2020-12-28 10:36 | NUR ---
Central Supply Assistant collaborated with Cipriano at [facility] and there is a bed available today. Cipriano met with patient and patient's , Rosie who is at bedside. HA attended clinical rounds with the team and patient to discharge to [facility] in [place] today. Both patient and Rosie are in agreement. HA contacted Ariana with [facility] and set transport time for 1330. HA provided transport time to DARELL Knight and to patient and patient's . Patient signed EMS transfer forms and HA placed them on patient's chart. HA faxed discharge orders to Cipriano at [facility] then contacted Cipriano to give finalized transport time of 1330. No additional needs at this time.
--- NOTE | 2020-12-28 11:30 | NUR ---
HOSPITALIST TEAM ROUNDING
--- NOTE | 2020-12-28 11:40 | NUR ---
250CC FLUID BOLUS STARTED. PATIENT ASSISTED OFF COMMODE. PATIENT HAS A XL SOFT-FORMED BM. PATIENT BACK IN BED TO COMFORT WITH AIRVO ON. RT TO COME AND SWITCH PATIENT TO -[facility] FOR TRANSFER TO [facility]. AT BEDSIDE.
[2020-12-28 13:08] VITALS: BP 104/58; PULSE 80; TEMP 97.9
--- NOTE | 2020-12-28 13:26 | NUR ---
Have been assisting DARELL Hamm with patient. Patient has been uneventful throughout shift, discharging to LTC in [place] today. via bedside, call light within reach.
--- NOTE | 2020-12-28 14:24 | NUR ---
Primary nurse was assisted with [phone] patient care by [employer] student Jennifer Ya and [employer] instructor Latrice Samuels RN-.
--- NOTE | 2020-12-28 14:35 | NUR ---
[facility] IS HERE TO TRANSPORT PATIENT TO [facility]. AT BEDSIDE. INFO PACKET GIVEN EMS. CALLED REPORT TO [facility]. PATIENT DISCHARGED ON BI-PAP AND WITH RIGHT UPPER ARM PICC. PERSONAL BELONGINGS SENT WITH PATIENT. PATIENT DISCHARGED.
== END 2020-12-28 14:35 | DRG 871 ==
LOC: COL.ER 11:40 → ICU 12:54 → MEDICAL 12-21 15:49 → ICU 12-25 07:08 → MEDICAL 12-27 14:19
PROVIDERS: Family Medicine; Internal Medicine; Internal Medicine Sleep Medicine; Nurse Practitioner Family; Physician Assistant; Student in an Organized Health Care Education/Training Program; ADMIT Hospitalist
PROC: 02HV33Z Insertion of Infusion Device into Superior Vena Cava, Percutaneous Approach (ICD-10-PCS; principal; 2020-12-25)
PROC: 5A09357 Assistance with Respiratory Ventilation, Less than 24 Consecutive Hours, Continuous Positive Airway Pressure (ICD-10-PCS; 2020-12-28)
DX: A41.9 Sepsis, unspecified organism (principal); J69.0 Pneumonitis due to inhalation of food and vomit; J96.21 Acute and chronic respiratory failure with hypoxia; J96.22 Acute and chronic respiratory failure with hypercapnia; E87.0 Hyperosmolality and hypernatremia; E87.3 Alkalosis; E87.8 Other disorders of electrolyte and fluid balance, not elsewhere classified; J44.9 Chronic obstructive pulmonary disease, unspecified; G20 Parkinson's disease; F02.80 Dementia in other diseases classified elsewhere, unspecified severity, without behavioral disturbance, psychotic disturbance, mood disturbance, and anxiety; R62.7 Adult failure to thrive; R55 Syncope and collapse; N40.0 Benign prostatic hyperplasia without lower urinary tract symptoms; I48.0 Paroxysmal atrial fibrillation; F32.9 Major depressive disorder, single episode, unspecified; F17.210 Nicotine dependence, cigarettes, uncomplicated; I25.2 Old myocardial infarction; Z90.89 Acquired absence of other organs; Z85.51 Personal history of malignant neoplasm of bladder; Z79.82 Long term (current) use of aspirin; Z85.118 Personal history of other malignant neoplasm of bronchus and lung
CPT/HCPCS: 99223-AI; 99232-AI; 99233-AI; 99239; C1751; J0692; J1650; J2060; J2543; J2920; J2930; J3480; J7030; J7050; J7070; J7512; Q9967

== ENCOUNTER 2021-03-04 01:59 | Emergency (ER) | payer MEDICARE, OTHER ==
[~2021-03-04] VITALS: Ht 152.4 cm; Wt 68.2 kg
[~2021-03-04 01:59] MED LIST changes: +ELIQUIS 5MG PO; +KLOR-CON 88 ME1 PO; +MULTAQ400 MG PO; +OS-CAL 500 + D1 TAB PO
[2021-03-04 02:03] VITALS: TEMP 97.7
[2021-03-04 02:33] LABS: BASO % 0.2 % (0.0-2.0); GRAN # 13.5 (1.4-6.5); GRAN % 86.6 % (42.2-75.2); HEMATOCRIT 35.7 % (42.0-52.0); HEMOGLOBIN 10.8 g/dl (13.5-18.0); LYMPH # 0.7 (1.2-3.4); LYMPH % 4.6 % (20.0-51.0); MEAN CELL VOLUME 94 fl (80.0-100.0); MEAN CORPUSCULAR HEMOGLOBIN 28 pg (27.0-31.0); MEAN CORPUSCULAR HGB CONC 30 g/dl (33.0-37.0); MEAN PLATELET VOLUME 11.3 fl (7.4-10.4); MONO # 1.2 (0.1-0.6); MONO % 7.6 % (1.7-9.3); PLATELET COUNT 242 K/mm3 (130-400); RED BLOOD COUNT 3.81 M/mm3 (4.20-5.60); REDCELL DISTRIBUTION WIDTH-CV 14.9 % (11.5-14.5)
[2021-03-04 02:39] LABS: ALBUMIN 3.9 gm/dL (3.5-5.0); BILIRUBIN,TOTAL 0.1 mg/dL (0.0-1.0); CALCIUM 9.1 mg/dL (8.4-10.2); CREATININE, serum 0.76 (0.66-1.25); POTASSIUM 3.6 mmol/L (3.4-5.0); TOTAL PROTEIN 6.7 gm/dL (6.4-8.2)
[2021-03-04 02:50] LABS: TROPONIN-I 0.023 ng/mL (0.000-0.035)
[2021-03-04] MEDS ORDERED: PREDNISONE20 MG PO (02:59)
[2021-03-04] MEDS ORDERED: BUSPAR5 MG PO (03:00)
[2021-03-04] MEDS ORDERED: K-DUR20 MEQ PO (03:01)
[2021-03-04] MEDS ORDERED: SYMMETREL100 MG PO (03:08)
[2021-03-04] MEDS ORDERED: ARICEPT10 MG PO (03:09)
[2021-03-04] MEDS ORDERED: VENTOLIN0.09 MG IH (03:12)
[2021-03-04 04:31] VITALS: BP 118/68; PULSE 70
== END 2021-03-04 04:35 | disposition home or self-care (01) ==
LOC: COL.ER 01:59
PROVIDERS: Emergency Medicine Emergency Medical Services
DX: R06.00 Dyspnea, unspecified (principal); E16.2 Hypoglycemia, unspecified; I48.91 Unspecified atrial fibrillation; I25.10 Atherosclerotic heart disease of native coronary artery without angina pectoris; I25.2 Old myocardial infarction; F03.90 Unspecified dementia, unspecified severity, without behavioral disturbance, psychotic disturbance, mood disturbance, and anxiety; Z85.118 Personal history of other malignant neoplasm of bronchus and lung; Z88.6 Allergy status to analgesic agent

== ENCOUNTER 2021-03-18 16:03 | Inpatient (IN) | payer MEDICARE, OTHER ==
[~2021-03-18] VITALS: Ht 152.4 cm; Wt 53.7 kg
[2021-03-18] VITALS (123 sets, daily range): BP systolic 99; BP diastolic 65; PULSE 68; TEMP 97.6; O2SAT 88–100
[~2021-03-18 16:03] MED LIST changes: +BUSPAR5 MG PO; +K-DUR20 MEQ PO; +SYMMETREL100 MG PO
[2021-03-18 16:43] LABS: BASO # 0.1 (0.0-0.2); BASO % 0.2 % (0.0-2.0); EOS # 0.1 (0.0-0.7); EOS % 0.2 % (0-4.0); GRAN # 19.8 (1.4-6.5); GRAN % 89.8 % (42.2-75.2); HEMOGLOBIN 10.4 g/dl (13.5-18.0); LYMPH # 0.5 (1.2-3.4); LYMPH % 2.3 % (20.0-51.0); MEAN CELL VOLUME 95 fl (80.0-100.0); MEAN CORPUSCULAR HEMOGLOBIN 28 pg (27.0-31.0); MEAN CORPUSCULAR HGB CONC 30 g/dl (33.0-37.0); MEAN PLATELET VOLUME 11.6 fl (7.4-10.4); MONO # 1.5 (0.1-0.6); MONO % 6.8 % (1.7-9.3); PLATELET COUNT 216 K/mm3 (130-400); RED BLOOD COUNT 3.66 M/mm3 (4.20-5.60); REDCELL DISTRIBUTION WIDTH-CV 15.1 % (11.5-14.5)
[2021-03-18 16:45] LABS: ARTERIAL BLD GAS TCO2 CT 32.7; ARTERIAL BLOOD GAS BASE EXCESS 5.1 (-2-2); ARTERIAL BLOOD GAS HCO3 31.1 meq/L (22-26); ARTERIAL BLOOD GAS PCO2 52.5 mmHg (35-45); ARTERIAL BLOOD GAS PO2 75.3 mmHg (80-100); ARTERIAL BLOOD GAS pH 7.39 (7.35-7.45)
[2021-03-18 16:46] LABS: HEMATOCRIT 34.7 % (42.0-52.0); PROTHROMBIN TIME 10.8 SECONDS (9.7-12.8)
[2021-03-18 16:51] LABS: ALANINE AMINOTRANSFERASE 21 U/L (4-49); ALBUMIN 3.6 gm/dL (3.5-5.0); ALKALINE PHOSPHATASE 62 U/L (50-136); ANION GAP 2 mmol/L (7-16); AST,SGOT 23 U/L (15-37); BILIRUBIN,TOTAL 0.4 mg/dL (0.0-1.0); BLOOD UREA NITROGEN 36 mg/dL (9-20); CALCIUM 9.2 mg/dL (8.4-10.2); CARBON DIOXIDE 32 mmol/L (22-30); CHLORIDE 105 mmol/L (98-107); CREATININE, serum 0.68 (0.66-1.25); GLUCOSE 106 mg/dL (74-106); POTASSIUM 3.7 mmol/L (3.4-5.0); SODIUM 138 mmol/L (137-145); TOTAL PROTEIN 6.1 gm/dL (6.4-8.2)
[2021-03-18 17:09] LABS: TROPONIN-I < 0.012 ng/mL (0.000-0.035)
[2021-03-18 17:17] LABS: LIPASE 158 U/L (23-300)
--- NOTE | 2021-03-18 19:24 | NUR ---
Vancomycin Initial Dosing Pharmacy Note Ordering provider: Marco Antonio Snyder MD Indication/duration: Empiric coverage LABS: eCrCl~70 mL/min Recommendation: Loading dose: 1 gram given in ED Maintenance dose: 1 gram every 12 hours Trough goal: 15-20 ug/mL Pharmacy will continue to follow.
--- NOTE | 2021-03-18 19:46 | NUR ---
RECEIVED PATIENT FROM ED WITH IV IN RAC AND VANCOMYCIN RUNNING TO GRAVITY. PATIENT WAS ON BIPAP AND LABORING TO BREATHE. PATIENT WAS ALSO CONFUSED BUT FOLLOWING COMMANDS. WAS ABLE TO PIVOT FROM STRETCHER TO BED. HAS TREMORS MOSTLY IN RUE. VSS. AND ABLE TO COMPLETE ASSESSMENT AND ADMISSION. WAS TOLD THAT PATIENT'S WAS IN WAITING ROOM.
[2021-03-18 19:50] LABS: COLLECTION METHOD CLEAN CATCH
[2021-03-18 20:02] LABS: MUCOUS Present /lpf; PH 5 (5-8); SQUAMOUS EPITHELIAL None Seen /hpf; URINE APPEARANCE Clear; URINE BACTERIA None Seen /hpf; URINE BILIRUBIN Negative (NEGATIVE); URINE BLOOD Negative (NEGATIVE); URINE COLOR Yellow; URINE GLUCOSE Negative (NEGATIVE); URINE KETONE Negative (NEGATIVE); URINE LEUKOCYTE ESTERASE Negative (NEGATIVE); URINE NITRATE Negative (NEGATIVE); URINE PROTEIN(semi-quant) Negative (NEGATIVE); URINE RBC 0-2 /hpf; URINE UROBILINOGEN Negative (NEGATIVE)
--- NOTE | 2021-03-18 20:16 | NUR ---
WENT TO GET IN ORDER FOR HER TO BE ABLE TO SAY ESPINOZA TO PATIENT. PATIENT'S INSISTENT ON WANTING TO ANSWER ADMISSION QUESTIONS, HAD CONCERNS ABOUT DIET AND WANTED TO CLARIFY MEDICATIONS. WHEN ASKED ABOUT PATIENT'S MED LIST, SHE WAS UNSURE. I TOLD HER TO CALL WITH LIST WHEN SHE HAD ACCESS TO IT AT HOME AND ASSURED HER THAT THE PATIENT WOULD BE FED AND ALSO RECEIVE EVENING MEDICATIONS ONCE WE COULD CLARIFY WHAT HE TAKES. GAVE DIRECTIONS TO ER DOOR.
--- NOTE | 2021-03-18 21:40 | NUR ---
PATIENT'S CALLED WITH MEDICATION LIST. WAS ABLE TO REVIEW AND CLARIFY WHAT PATIENT TAKES. PATIENT'S WAS VERY ADAMANT ABOUT MEDICATIONS WHICH STILL NEEDED TO BE TAKEN AND IN THE MANNER IN WHICH THEY NEEDED TO BE TAKEN. ASSURED SEVERAL TIMES THAT THINGS WOULD BE TAKEN CARE OF IN THE MANNER IN WHICH SHE HAD EXPRESSED. WHEN I EXPRESSED THAT SHE HAD MADE HERSELF CLEAR AND THAT I NEEDED TO GET OFF THE PHONE IN ORDER TO DO WHAT SHE SAID, SHE HUNG UP ON ME.
[2021-03-19] VITALS (610 sets, daily range): BP systolic 98–127; BP diastolic 64–75; PULSE 70–85; TEMP 97.7–99; O2SAT 76–99
[2021-03-19 06:01] LABS: MEAN CELL VOLUME 94 fl (80.0-100.0); MEAN CORPUSCULAR HGB CONC 31 g/dl (33.0-37.0); MEAN PLATELET VOLUME 12.3 fl (7.4-10.4); PLATELET COUNT 193 K/mm3 (130-400); RED BLOOD COUNT 3.29 M/mm3 (4.20-5.60); REDCELL DISTRIBUTION WIDTH-CV 15.1 % (11.5-14.5)
[2021-03-19 06:18] LABS: HEMATOCRIT 30.8 % (42.0-52.0); HEMOGLOBIN 9.4 g/dl (13.5-18.0); MEAN CORPUSCULAR HEMOGLOBIN 29 pg (27.0-31.0)
[2021-03-19 06:20] LABS: CALCIUM 8.6 mg/dL (8.4-10.2); CREATININE, serum 0.63 (0.66-1.25); POTASSIUM 4.3 mmol/L (3.4-5.0)
[2021-03-19 06:51] LABS: BAND 10 % (0-10); LYMPHOCYTE 1 % (20.0-51.0); NEUTROPHILS 89 % (42.0-75.2); PLATELET ESTIMATE NORMAL (NORMAL)
--- NOTE | 2021-03-19 07:00 | NUR ---
PT IN BED COMPLAINING OF SOB AND CP. O2 DOWN TO 86%. RT CALLED AND PT PLACED BACK ON BIPAP. NITRO GIVEN. CHEST XRAY DONE AND NITRO GIVEN. BP IN THE 100'S. PT IS SR IN THE 70'S. 0820: PT RESTING COMFORTABLY. VSS. O2 94 ON BIPAP. PLACED NPO WHILE ON BIPAP. TROPONIN NEGATIVE. WILL CONTINUE TO MONITOR.
--- NOTE | 2021-03-19 09:09 | NUR ---
SPOKE WITH . PT BACK ON BIPAP. TROPONIN NEGATIVE. PT APPEARS MORE COMFORTABLE BACK ON BIPAP. PT LETHARGIC BUT AROUSABLE. ORDER RECEIVED FOR ABG. RT CALLED AND NOTIFIED.
[2021-03-19 09:19] LABS: ARTERIAL BLD GAS O2 SATURATION 95.8 % (92-100); ARTERIAL BLD GAS TCO2 CT 27.6; ARTERIAL BLOOD GAS BASE EXCESS 2.7 (-2-2); ARTERIAL BLOOD GAS HCO3 26.4 meq/L (22-26); ARTERIAL BLOOD GAS PCO2 37.5 mmHg (35-45); ARTERIAL BLOOD GAS PO2 78.3 mmHg (80-100); ARTERIAL BLOOD GAS pH 7.47 (7.35-7.45)
--- NOTE | 2021-03-19 09:46 | NUR ---
The patient is on a bipap and has a history of dementia. SW contacted the patient's , Misty (ph#[phone]), to complete intake. The patient lives in [place] with Misty. The patient has a walker and home oxygen from [employer]. She states that [employer] gave them a higher flow concentrator, due to his increased oxygen needs. The patient was sent to [facility] from our hospital in December. Misty reports that the patient went to a rehab center in [place] after his stay at [facility]. She states that he was set up with outpatient therapy at [facility] and his first appointment there was suppose to be this week. The patient's PCP is Dr. Bryan Magana and he receives his medications from [facility]. The patient's DPOA-HC is in EMR and it designates his . His reports that she will be up to the hospital later to visit the patient. The patient remains on the bipap. PT/OT have been ordered. SW to continue to follow. *Discharge plan: unknown at this time, awaiting recs*
--- NOTE | 2021-03-19 20:07 | NUR ---
Resting in bed. Assessment complete and charted. Patient aggitated this evening. Patient stating "I know my dumps me here to get me out of her hair." Sat and provided emotional support to patient this evening. Labored breathing present with current aggitated state. Call light in reach. VS monitored.
[2021-03-20] VITALS (352 sets, daily range): BP systolic 99–136; BP diastolic 46–66; PULSE 62–117; TEMP 97.6–98.1; O2SAT 75–100
--- NOTE | 2021-03-20 | NUR ---
Patient resting in bed. Denies needs at this time. Call light in reach.
[2021-03-20 05:40] LABS: MEAN CELL VOLUME 91 fl (80.0-100.0); MEAN CORPUSCULAR HGB CONC 31 g/dl (33.0-37.0); MEAN PLATELET VOLUME 12.3 fl (7.4-10.4); PLATELET COUNT 217 K/mm3 (130-400); REDCELL DISTRIBUTION WIDTH-CV 15.1 % (11.5-14.5)
[2021-03-20 05:43] LABS: HEMATOCRIT 30.1 % (42.0-52.0); HEMOGLOBIN 9.4 g/dl (13.5-18.0); MEAN CORPUSCULAR HEMOGLOBIN 28 pg (27.0-31.0)
[2021-03-20 05:52] LABS: CALCIUM 8.7 mg/dL (8.4-10.2); CREATININE, serum 0.8 (0.66-1.25); POTASSIUM 3.7 mmol/L (3.4-5.0)
[2021-03-20 05:59] LABS: HYPOCHROMIA 2+; LYMPHOCYTE 3 % (20.0-51.0); NEUTROPHILS 96 % (42.0-75.2)
[2021-03-20 06:00] LABS: ANISOCYTOSIS 1+
--- NOTE | 2021-03-20 06:02 | NUR ---
Patient on bipap most of the night at 40% FiO2. Uneventful night. Resting in bed this AM. Received bed bath and linen change this AM. Call light in reach.
--- NOTE | 2021-03-20 07:22 | NUR ---
Report given to DARELL Pineda
--- NOTE | 2021-03-20 10:03 | NUR ---
I met with Wilmer yesterday and talked darya Quach this morning. Main tells me that he goes fishing in his spare time and he enjoys that. He does not remember coming to the hospital or even seeing Wilmer here but wants to go home soon. He asks the same questions repeatedly. He did ask to talk with Lopez so I was able to reach her by phone and he was able to talk with her. When he was talking with her he was talking in sentences while usually with me he was short of breath and talking in 2-3 word sentences. He definitely wants to go home soon. He will likely move to the medical unit soon.
--- NOTE | 2021-03-20 11:19 | NUR ---
SW attended clinical rounds. A palliative care consult was ordered and the patient is to tentatively transfer up to the medical floor today. SW to continue to follow.
--- NOTE | 2021-03-20 14:40 | NUR ---
Patient is resting in bed, is in the room. VSS. Patient is awake and answers to questions with shortness of breath and cough, so he does not speak too much. He denies pain, nausea, or vomiting. He is with 8L O2 but still seems to have breathing difficulties. No further needs at the moment.
--- NOTE | 2021-03-20 23:19 | NUR ---
ASSESSMENT COMPLETE. ORIENTATED TO SELF AND SITUTION. DENIES PAIN. IS SOA BUT STATES IS ALWAYS. PM MEDS CRUSHED IN APPLESAUCE. MELATONIN GIVEN FOR REST. RESTARTED HIS TREMOR MEDS. WATER AT BEDSIDE, NO STRAW. PT WAS GIVEN UPDATES BEFORE SHIFT CHANGE. BED ALARM ON. NEEDS MET. RT SETS UP TRILOGY BREATHING.
[2021-03-21 03:50] VITALS: BP 105/57; PULSE 76; TEMP 97.4
--- NOTE | 2021-03-21 05:14 | NUR ---
Rested through out the night without incident. Needs met.
[2021-03-21 06:44] LABS: MEAN CELL VOLUME 90 fl (80.0-100.0); MEAN CORPUSCULAR HGB CONC 31 g/dl (33.0-37.0); MEAN PLATELET VOLUME 12.3 fl (7.4-10.4); PLATELET COUNT 238 K/mm3 (130-400); RED BLOOD COUNT 3.36 M/mm3 (4.20-5.60); REDCELL DISTRIBUTION WIDTH-CV 15.4 % (11.5-14.5)
[2021-03-21 06:51] LABS: HEMATOCRIT 30.3 % (42.0-52.0); HEMOGLOBIN 9.5 g/dl (13.5-18.0); MEAN CORPUSCULAR HEMOGLOBIN 28 pg (27.0-31.0)
[2021-03-21 07:06] LABS: CALCIUM 8.3 mg/dL (8.4-10.2); CREATININE, serum 0.77 (0.66-1.25); MAGNESIUM 2.3 mg/dL (1.6-2.3); POTASSIUM 3.6 mmol/L (3.4-5.0)
[2021-03-21 07:16] LABS: BAND 5 % (0-10); NEUTROPHILS 94 % (42.0-75.2); PLATELET ESTIMATE NORMAL (NORMAL)
[2021-03-21 07:41] VITALS: BP 120/57; PULSE 76; TEMP 97.6
--- NOTE | 2021-03-21 11:00 | NUR ---
Patient has been doing well this morning. His is here. She was upset because there was a cup of not thickened water at bedside. Patient did not drink any. Poured out the water and gave him thickened water. Patient is tolerating diet well. He has some wheezing and crackles in the upper lungs. He denies nausea and pain. He keeps asking to go to the bathroom but voids about 50ml every time. Encouraged him to cough and deep breath. No other changes at this time. Call light within reach. Bed alarm on.
[2021-03-21] MEDS ORDERED: MYSOLINE 5050 MG/TAB PO (11:47)
[2021-03-21 11:48] VITALS: BP 94/39; PULSE 82; TEMP 98.1
--- NOTE | 2021-03-21 13:40 | NUR ---
Met with Wilmer this morning at bedside with Main. She reports that she thinks he is working to breathe more today. She also reports he had a straw in his room which was not approved by speech therapy. The primary nurse, Mala, had already removed the straw by the time I got there. She states he was almost ready to start therapy when he was admitted to the hospital. He likes the outpatient therapist and was looking forward to working with him. Emphasized that Main has very limited reserves so trying to maintain the strengths that he does have is very important. She reports that he likes to go for rides in the car when they can. he uses a walker or wheelchair when he is out. The treatment team has suggested a SNF stay and I am advised that she was agreeable to this. When I asked them what was important to them, it was that he did not want to be a prisoner in his own home. Support provided.
--- NOTE | 2021-03-21 14:31 | NUR ---
Teletypist attended clinical rounds with the team and patient's , Rosie inquired about discharge planning. SW advised Rosie that PT/OT are recommending SNF. HA advised that [facility] can sometimes accept referrals with home trilogy. Rosie is agreeable to have a referral sent to [facility]. SW contacted [facility] and faxed referral. Discharge Plan: Awaiting screen from [facility].
[2021-03-21 16:07] VITALS: BP 112/5; BP 112/56; PULSE 70; TEMP 97.7
--- NOTE | 2021-03-21 18:49 | NUR ---
Patient has been doing well today. He just jumped up out of bed and stated he needs to exercise. He got very short of air. He has been eating well, we've been sitting him up in the bed and he did well with eating. He needs some reminders to slow down. No complaints of pain. No other changes at this time. Call light within reach. Bedalarm on.
[2021-03-21 19:58] VITALS: BP 105/70; PULSE 78; TEMP 98
--- NOTE | 2021-03-21 20:10 | NUR ---
Patient assessed at this time. Alert and oriented to self. Disoriented to time, place, and situation. Easily redirected. Forgetul. High fall risk precautions in palce. Denies having pain and discomfort. Peripheral INT to right AC. Site without redness, warmth, swelling, and pain. Reports SOB with exertion. Respirations even and unlabored after assisting to bathroom. On oxygen at 6 L/min via high flow nasal canula. LS CTA in upper lobes, diminished in lower. Occasional moist cough. HRR. Telemetry in place: normal sinus. Capillary refill less than 3 seconds. Non-tenting skin turgor. BSAx4. Abdomen soft and non-tender. No edema. Redness to coccyx, blanchable. Voices no questions, needs, or concerns at this time, except he wanted to call his . Assisted patient with calling as requested.
[2021-03-21 23:22] VITALS: BP 109/55; PULSE 71; TEMP 97.9
[2021-03-22 03:53] VITALS: BP 124/61; PULSE 71; TEMP 97.5
--- NOTE | 2021-03-22 05:46 | NUR ---
Patient has been resting in bed with call light within reach. Denies having pain and discomfort this shift. Wearing trilogy. Voices no questions, needs, or concerns at this time.
[2021-03-22 06:01] LABS: MEAN CELL VOLUME 90 fl (80.0-100.0); MEAN CORPUSCULAR HGB CONC 31 g/dl (33.0-37.0); MEAN PLATELET VOLUME 11.8 fl (7.4-10.4); PLATELET COUNT 242 K/mm3 (130-400); RED BLOOD COUNT 3.47 M/mm3 (4.20-5.60); REDCELL DISTRIBUTION WIDTH-CV 15.3 % (11.5-14.5)
[2021-03-22 06:07] LABS: HEMATOCRIT 31.1 % (42.0-52.0); HEMOGLOBIN 9.7 g/dl (13.5-18.0); MEAN CORPUSCULAR HEMOGLOBIN 28 pg (27.0-31.0)
[2021-03-22 06:13] LABS: CALCIUM 8.4 mg/dL (8.4-10.2); CREATININE, serum 0.66 (0.66-1.25)
[2021-03-22 07:45] VITALS: BP 131/4; BP 131/74; PULSE 86; TEMP 98
--- NOTE | 2021-03-22 08:46 | NUR ---
Received call from telemetry that pt appeared to be in afib with rate 140s. Notified who ordered EKG. RT notified. Vitals obtained w/ BP 124/70, HR 90, SpO2 90%. Pt denies chest pain or worsened SOA. RT at bedside doing EKG at this time. Continuing to monitor.
--- NOTE | 2021-03-22 09:15 | NUR ---
Shift assessment complete. Pt resting in bed w/eyes closed, rouses easily to voice. Alert, partially oriented. HFNC on at 6 lpm O2. Dyspnea noted when moving from chair to bed this AM. Heart rhythm irregular w/rate tachy. Lungs CTA. When asked how he was feeling, pt stated "Why won't anyone just let me already." Denies suicidal thoughts or plan. Denies pain. Notified sales service technician to speak w/pt if willing. Continuing to monitor.
[2021-03-22 11:23] VITALS: BP 90/58; PULSE 91; TEMP 97.9
--- NOTE | 2021-03-22 12:46 | NUR ---
Initial visit; Patient very agitated and angry, stating he wants to be . Traffic Engineering Technician listened for awhile to his wishes to then spoke with him about God's plan for us is not always our plan. We just have to pray "Thy will be done," and then listen and let go and let God. He settled in for awhile and before Traffic Engineering Technician left she reminded to continue to pray "Thy will be done."
--- NOTE | 2021-03-22 13:44 | NUR ---
Trilogy download placed on chart.
--- NOTE | 2021-03-22 14:31 | NUR ---
I talked with Wilmer this afternoon. She is trying to help Main talk with his brother on the phone but Main is having trouble hearing despite the phone being turned up as loud as it can be. Support provided. Still waiting to hear about acceptance at [facility] but Wilmer is still hopeful.
[2021-03-22 15:33] VITALS: BP 109/58; PULSE 91; TEMP 98.1
--- NOTE | 2021-03-22 16:19 | NUR ---
Industrial Relations Commissioner faxed clinical updates to Diana at [facility] who advised they can accept at discharge. SW contacted patient's , Rosie to give update. Discharge Plan: [facility] SNF
--- NOTE | 2021-03-22 18:07 | NUR ---
Pt attempting to sit up on edge of bed stating it's hard to breathe, breathing labored and shallow. Checked O2 sats and found to be 87-88% on 6 L HFNC. O2 increased to 7 lpm and pt encouraged to take slow deep breaths through the nose w/immediate increase to 92%. HR slowed from 115 to 95. Sitting up on side of bed at this time, bed alarm on.
[2021-03-22 19:19] VITALS: BP 113/54; PULSE 78; TEMP 97.9
[2021-03-22 23:31] VITALS: BP 114/61; PULSE 72; TEMP 97.7
[2021-03-23 04:12] VITALS: BP 134/71; PULSE 70; TEMP 97.5
--- NOTE | 2021-03-23 05:59 | NUR ---
NO NEW ISSUES NOTED OR REPORTED BY PATIENT THROUGHOUT THE NIGHT. PATIENT HAS HAD HIS TRILOGY BIPAP MACHINE ON SINCE 2300 LAST NIGHT. PATIENT UP TO USE THE BATHROOM 3X'S THROUGHOUT THE NIGHT WITH NO ISSUES.
[2021-03-23 09:01] VITALS: BP 94/53; PULSE 115; TEMP 98.2
--- NOTE | 2021-03-23 09:26 | NUR ---
Pt sleeping upon entry to room, easily awakened, has some dyspnea at rest. No C/O pain at this time. Shift assessments complete, left Pt call light in reach, bed in lowest position, alarm on.
[2021-03-23 11:52] VITALS: BP 114/63; PULSE 83; TEMP 98.1
[2021-03-23 16:56] VITALS: BP 122/70; PULSE 87; TEMP 97.6
[2021-03-23 21:30] VITALS: BP 106/56; PULSE 77; TEMP 98
[2021-03-24 00:09] VITALS: BP 104/58; PULSE 82; TEMP 98
[2021-03-24 05:08] VITALS: BP 108/63; PULSE 70; TEMP 98.2
--- NOTE | 2021-03-24 05:10 | NUR ---
NO NEW ISSUES NOTED OR REPORTED BY PATIENT THROUGHOUT THE SHIFT. PATIENT RESTED QUIETLY IN BED THROUGHOUT MOST OF THE NIGHT.
[2021-03-24 06:59] LABS: MEAN CELL VOLUME 92 fl (80.0-100.0); MEAN CORPUSCULAR HEMOGLOBIN 28 pg (27.0-31.0); MEAN CORPUSCULAR HGB CONC 31 g/dl (33.0-37.0); MEAN PLATELET VOLUME 12.1 fl (7.4-10.4); PLATELET COUNT 266 K/mm3 (130-400); RED BLOOD COUNT 3.55 M/mm3 (4.20-5.60); REDCELL DISTRIBUTION WIDTH-CV 15.1 % (11.5-14.5)
[2021-03-24 07:00] LABS: HEMATOCRIT 32.8 % (42.0-52.0)
[2021-03-24 07:07] LABS: CALCIUM 8.3 mg/dL (8.4-10.2); CREATININE, serum 0.72 (0.66-1.25); POTASSIUM 3.6 mmol/L (3.4-5.0)
[2021-03-24 08:32] VITALS: BP 116/69; PULSE 89; TEMP 98.1
--- NOTE | 2021-03-24 09:34 | NUR ---
Pt awake and alert this morning upon entry, no C/O pain at this time. Shift assessments complete, left Pt call light in reach, bed in lowest position, alarm on.
--- NOTE | 2021-03-24 09:39 | NUR ---
SW update: Preparing for DC. [facility] confirmed bed availibilty for this client. Awaiting DC orders.
[2021-03-24 09:53] LABS: BAND 1 % (0-10); LYMPHOCYTE 13 % (20.0-51.0); NEUTROPHILS 72 % (42.0-75.2)
[2021-03-24 09:54] LABS: MYELOCYTE 8 % (0-0); PLATELET ESTIMATE NORMAL (NORMAL)
[2021-03-24 09:55] LABS: HYPOCHROMIA 3+
[2021-03-24] MEDS ORDERED: CLEOCIN HCL300 MG PO (10:42)
[2021-03-24] MEDS ORDERED: PROBIOTIC ACID1 EAC3 PO (10:42)
[2021-03-24] MEDS ORDERED: PREDNISONE20 MG PO (10:44)
[2021-03-24 11:42] VITALS: BP 120/63; PULSE 89; TEMP 97.8
--- NOTE | 2021-03-24 11:45 | NUR ---
This RN received phone consent from Wilmer, patient spouse, regarding discharge/transfer to [facility]. Wilmer verbalized understanding, this was verified by DARELL Garrett.
--- NOTE | 2021-03-24 11:45 | NUR ---
Pt to be transferred to [facility]. Verbal consent for transfer received by DARELL Clark, Cytology Manager and DARELL Garrett, attending nurse.
--- NOTE | 2021-03-24 13:15 | NUR ---
Pt transferred to [facility], report called to receiving nurse.
--- NOTE | 2021-03-24 13:40 | NUR ---
This RN received an aggressive phone call from Wilmer, patients regarding patients missing "trilogy and shoes." She insists that I "lied to the villages about [employer] trilogy, and this is a very expensive machine." This RN found the trilogy still in patient room from discharge. Bossman, social work was notified and she spoke with [facility] they will be returning our wheelchair and will nut picker the trilogy.
--- NOTE | 2021-03-24 13:50 | NUR ---
This RN called Wilmer back letting her know we found the trilogy but the shoes were placed in his belongings bag and sent with the patient. She was VERY adament that it was "my responsibility to bring the trilogy to the villages" I apologized and stated that I couldn't leave the hospital to do this but [facility] will come get it." At this time the phone call ended abruptly.
--- NOTE | 2021-03-24 19:07 | NUR ---
Call received from of pt regarding scheduling [facility] at [facility]. Called [facility] and order received, faxed order to [facility] nurse who will take it and provide needed changes to MAR at [facility].
== END 2021-03-24 14:10 | DRG 177 ==
LOC: COL.ER 16:03 → ICU 17:38 → MEDICAL 03-20 14:18
PROVIDERS: Emergency Medicine; Internal Medicine; Physician Assistant; Student in an Organized Health Care Education/Training Program; ADMIT Hospitalist
DX: J69.0 Pneumonitis due to inhalation of food and vomit (principal); J96.21 Acute and chronic respiratory failure with hypoxia; J96.22 Acute and chronic respiratory failure with hypercapnia; J44.1 Chronic obstructive pulmonary disease with (acute) exacerbation; I50.30 Unspecified diastolic (congestive) heart failure; I48.91 Unspecified atrial fibrillation; R07.89 Other chest pain; D50.0 Iron deficiency anemia secondary to blood loss (chronic); F41.9 Anxiety disorder, unspecified; R62.7 Adult failure to thrive; R25.1 Tremor, unspecified; F03.90 Unspecified dementia, unspecified severity, without behavioral disturbance, psychotic disturbance, mood disturbance, and anxiety; N40.0 Benign prostatic hyperplasia without lower urinary tract symptoms; Z85.51 Personal history of malignant neoplasm of bladder; Z85.118 Personal history of other malignant neoplasm of bronchus and lung; Z66 Do not resuscitate; I25.2 Old myocardial infarction; Z87.891 Personal history of nicotine dependence
CPT/HCPCS: 99223-AI; 99231-AI; 99232-AI; 99233-AI; 99239; J1650; J2543; J2920; J3370; J7050; J7512

== ENCOUNTER 2021-03-28 11:52 | Emergency (ER) | payer MEDICARE, OTHER ==
[~2021-03-28] VITALS: Ht 152.4 cm; Wt 52.3 kg
[2021-03-28 11:49] VITALS: TEMP 98.2
[~2021-03-28 11:52] MED LIST changes: +PROBIOTIC ACID1 EAC3 PO
[2021-03-28 12:18] LABS: MEAN CELL VOLUME 91 fl (80.0-100.0); MEAN CORPUSCULAR HEMOGLOBIN 28 pg (27.0-31.0); MEAN CORPUSCULAR HGB CONC 31 g/dl (33.0-37.0); MEAN PLATELET VOLUME 10.8 fl (7.4-10.4); PLATELET COUNT 351 K/mm3 (130-400); RED BLOOD COUNT 3.88 M/mm3 (4.20-5.60); REDCELL DISTRIBUTION WIDTH-CV 15.7 % (11.5-14.5)
[2021-03-28 12:25] LABS: ALANINE AMINOTRANSFERASE 31 U/L (4-49); ALBUMIN 3.6 gm/dL (3.5-5.0); ALKALINE PHOSPHATASE 63 U/L (50-136); ANION GAP 4 mmol/L (7-16); AST,SGOT 23 U/L (15-37); BILIRUBIN,TOTAL 0.5 mg/dL (0.0-1.0); BLOOD UREA NITROGEN 47 mg/dL (9-20); CALCIUM 8.7 mg/dL (8.4-10.2); CARBON DIOXIDE 30 mmol/L (22-30); CHLORIDE 105 mmol/L (98-107); CREATININE, serum 0.69 (0.66-1.25); GLUCOSE 101 mg/dL (74-106); POTASSIUM 3.9 mmol/L (3.4-5.0); SODIUM 140 mmol/L (137-145); TOTAL PROTEIN 6.3 gm/dL (6.4-8.2)
[2021-03-28 12:31] LABS: HEMATOCRIT 35.1 % (42.0-52.0)
[2021-03-28 12:37] LABS: TROPONIN-I < 0.012 ng/mL (0.000-0.035)
[2021-03-28 12:41] LABS: BAND 2 % (0-10); LYMPHOCYTE 3 % (20.0-51.0); MYELOCYTE 1 % (0-0); NEUTROPHILS 90 % (42.0-75.2)
[2021-03-28 12:43] LABS: ANISOCYTOSIS 1+; HYPOCHROMIA 1+; PLATELET ESTIMATE NORMAL (NORMAL)
[2021-03-28 13:35] VITALS: BP 99/74; PULSE 94
== END 2021-03-28 14:00 | disposition home or self-care (01) ==
LOC: COL.ER 11:52
PROVIDERS: Emergency Medicine
DX: J96.11 Chronic respiratory failure with hypoxia (principal); J96.12 Chronic respiratory failure with hypercapnia; J69.0 Pneumonitis due to inhalation of food and vomit; I50.9 Heart failure, unspecified; D72.829 Elevated white blood cell count, unspecified; J44.9 Chronic obstructive pulmonary disease, unspecified; F03.90 Unspecified dementia, unspecified severity, without behavioral disturbance, psychotic disturbance, mood disturbance, and anxiety; Z85.118 Personal history of other malignant neoplasm of bronchus and lung; Z87.891 Personal history of nicotine dependence; Z88.5 Allergy status to narcotic agent; Z88.6 Allergy status to analgesic agent; Z79.51 Long term (current) use of inhaled steroids; Z79.899 Other long term (current) drug therapy
CPT/HCPCS: J2930

== ENCOUNTER 2021-04-01 18:55 | Emergency (ER) | payer MEDICARE, OTHER ==
[~2021-04-01] VITALS: Ht 170.2 cm; Wt 63.6 kg
[2021-04-01 18:56] VITALS: TEMP 98.7
[2021-04-01 19:14] LABS: MEAN CELL VOLUME 93 fl (80.0-100.0); MEAN CORPUSCULAR HEMOGLOBIN 29 pg (27.0-31.0); MEAN CORPUSCULAR HGB CONC 31 g/dl (33.0-37.0); PLATELET COUNT 285 K/mm3 (130-400); RED BLOOD COUNT 3.51 M/mm3 (4.20-5.60); REDCELL DISTRIBUTION WIDTH-CV 15.4 % (11.5-14.5)
[2021-04-01 19:18] LABS: HEMATOCRIT 32.7 % (42.0-52.0)
[2021-04-01 19:35] LABS: ALANINE AMINOTRANSFERASE 27 U/L (4-49); ALBUMIN 3.4 gm/dL (3.5-5.0); ALKALINE PHOSPHATASE 92 U/L (50-136); ANION GAP 4 mmol/L (7-16); AST,SGOT 24 U/L (15-37); BILIRUBIN,TOTAL < 0.1 mg/dL (0.0-1.0); BLOOD UREA NITROGEN 39 mg/dL (9-20); C-REACTIVE PROTEIN 1.7 mg/dL (0.0-0.9); CALCIUM 8.6 mg/dL (8.4-10.2); CARBON DIOXIDE 31 mmol/L (22-30); CHLORIDE 103 mmol/L (98-107); CREATININE, serum 0.84 (0.66-1.25); GLUCOSE 130 mg/dL (74-106); POTASSIUM 4.1 mmol/L (3.4-5.0); SODIUM 138 mmol/L (137-145); TOTAL PROTEIN 6.1 gm/dL (6.4-8.2)
[2021-04-01 19:46] LABS: BAND 10 % (0-10); HYPOCHROMIA 1+; LYMPHOCYTE 4 % (20.0-51.0); NEUTROPHILS 84 % (42.0-75.2)
[2021-04-01 22:47] VITALS: BP 109/61; PULSE 61
== END 2021-04-01 22:53 | disposition home or self-care (01) ==
LOC: COL.ER 18:55
PROVIDERS: Emergency Medicine
DX: R19.5 Other fecal abnormalities (principal); R05 Cough; J44.9 Chronic obstructive pulmonary disease, unspecified; F32.9 Major depressive disorder, single episode, unspecified; F03.90 Unspecified dementia, unspecified severity, without behavioral disturbance, psychotic disturbance, mood disturbance, and anxiety; Z85.118 Personal history of other malignant neoplasm of bronchus and lung; Z88.6 Allergy status to analgesic agent; Z87.891 Personal history of nicotine dependence; Z79.52 Long term (current) use of systemic steroids
CPT/HCPCS: Q9967

== ENCOUNTER 2021-05-03 12:48 | Outpatient (RCR) | payer MEDICARE, OTHER | END 2021-05-03 14:01 | disposition home or self-care (01) | LOC: MKS.ESL.PT 12:48 | DX: R06.89 Other abnormalities of breathing (principal); R09.02 Hypoxemia ==

== ENCOUNTER 2022-01-20 13:26 | Emergency (ER) | payer MEDICARE, OTHER ==
[2022-01-20 13:28] VITALS: BP 94/62; PULSE 111
[2022-01-20 13:50] LABS: ARTERIAL BLD GAS O2 SATURATION 80.8 % (92-100); ARTERIAL BLOOD GAS BASE EXCESS -16.6 (-2-2); ARTERIAL BLOOD GAS HCO3 19.1 meq/L (22-26); ARTERIAL BLOOD GAS PCO2 128.4 mmHg (35-45); ARTERIAL BLOOD GAS PO2 78.9 mmHg (80-100); ARTERIAL BLOOD GAS pH 6.79 (7.35-7.45)
--- NOTE | 2022-01-20 15:11 | NUR ---
Initial visit; Patient in Emergency Room, Turf Manager went to Waiting Room to get patient's and son. Patient's unwilling to sign Admission form and argumentative with staff. Turf Manager took patient's and son to small waiting room and brought Misty gupta. Physician, Organ Grinder and Charge Entry Specialist came into waiting room to tell Misty (spouse) that Main had passed. Turf Manager called their Stem Cleaning Machine Feeder from [place] and waited for him to arrive an hourlater. Turf Manager dismissed herself and offered God's blessings.
--- NOTE | 2022-01-20 16:13 | NUR ---
fruit or nut farmworker met with patient's and son, Raul as patient presented code blue and in the emergency room. Worker offered emotional support. Patient was not a candidate for donation, per [facility]. Worker provided most economical home service and spouse was agreeable to [facility] [employer]. Worker contacted Keyanna with [employer] and had spouse speak with her to obtain financial obligation. Spouse verbalizes understanding of cost and will be able to get the money on her way to [place]. Patient's estranged daughter, Bridgette, arrived and sat with patient privately. Worker and house superviser provided support to Bridgette. Worker walked Bridgette out of the hospital after she was done spending time with patient. Bridgette states she has not seen her father for 10 years due to issues with her mother.
== END 2022-01-20 15:55 | disposition expired ==
LOC: COL.ER 13:26
PROVIDERS: Family Medicine
DX: I46.9 Cardiac arrest, cause unspecified (principal); E87.2 Acidosis; R00.9 Unspecified abnormalities of heart beat
CPT/HCPCS: J0171